=== PATIENT | female | born 1960 ===

== ENCOUNTER 2020-12-12 05:10 | Inpatient (IN) | payer OTHER ==
[2020-12-12] VITALS (43 sets, daily range): BP systolic 75–154; BP diastolic 50–90
[~2020-12-12] VITALS: Ht 157.5 cm; Wt 68.9 kg
[2020-12-12] MEDS: propofoL 1,000 MG in IV 1 EA IV SCH ×2 (07:05→12:06)
[2020-12-12] MEDS ORDERED: MIDAZOLAM INJ 2MG/2ML VIAL (J2250 PER 1MG) As Ordered ONE (07:15)
[2020-12-12] MEDS: MIDAZOLAM INJ 2MG/2ML VIAL (J2250 PER 1MG) IV PRN ×5 (07:16→09:56)
[2020-12-12] MEDS: ALBUTEROL SULFATE 2.5 MG/0.5 ML INH NEB SOLN NEB SCH ×4 (07:29→20:03)
[2020-12-12 08:12] LABS: ABG BASE EXCESS -10.9 (-2.0-2.0); ABG O2 SATURATION 98.7 % (95.0-99.0); ABG PARTIAL PRESSURE CO2 28.2 mmHg (35.0-45.0); ABG PARTIAL PRESSURE O2 140.2 mmHg (75.0-100.0); ABG STANDARD HCO3 15.8 MEQ/L (22.0-26.0); ABG TOTAL CO2 14.9 MEQ/L (23.0-31.0); ABG pH (ARTERIAL) 7.314 UNITS (7.350-7.450)
[2020-12-12] MEDS: CHLORHEXIDINE GLUCONATE 0.12 % 15ML UDC (PERIDEX ORAL RINSE) MT SCH ×3 (08:20→22:13)
[2020-12-12] MEDS: PANTOPRAZOLE 40MG VIAL (C9113 PER 1) IV SCH ×2 (08:21→09:00)
[2020-12-12] MEDS ORDERED: REFRIGERATOR IV KEYS XX PRN (08:30)
--- NOTE | 2020-12-12 08:48 | REP ---
INDICATION: RESPIRATORY FAILURE COMPARISON: None. TECHNIQUE: Portable AP view of the chest FINDINGS: Extensive diffuse bilateral subcutaneous emphysema is appreciated. Underlying areas of consolidation in the upper lobes and lower lobes (left greater than right) noted. The cardiac silhouette is normal. Endotracheal tube approximately 3.7 cm above the nicky. Nasogastric tube courses below the left hemidiaphragm. IMPRESSION: 1. Diffuse extensive subcutaneous emphysema throughout the thorax. 2. Underlying multifocal consolidations (left greater than right). <Electronically signed by Alber Boudreaux > 12/12/20 [id number]
[2020-12-12] MEDS ORDERED: LIDOCAINE 1% MDV 20ML VIAL As Ordered ONE ×2 (08:53→09:23)
[2020-12-12] MEDS ORDERED: FLUO40CA PO (09:07)
[2020-12-12] MEDS ORDERED: ROPI5TAB3 PO (09:07)
[2020-12-12] MEDS ORDERED: MONT10TA10 PO (09:07)
[2020-12-12] MEDS ORDERED: MED REC COMMENT (09:08)
[2020-12-12] MEDS ORDERED: ETOMIDATE INJ 20MG/10ML VIAL IV STA (09:23)
[2020-12-12] MEDS ORDERED: ETOMIDATE INJ 20MG/10ML VIAL As Ordered ONE (09:23)
[2020-12-12] MEDS ORDERED: SUCCINYLCHOLINE INJ 200 MG/10 ML VIAL (J0330) IV STA (09:23)
[2020-12-12] MEDS ORDERED: SUCCINYLCHOLINE INJ 200 MG/10 ML VIAL (J0330) As Ordered ONE (09:24)
[2020-12-12 09:27] LABS: ABG BASE EXCESS -15.4 (-2.0-2.0); ABG HCO3 12.8 MEQ/L (22.0-26.0); ABG O2 SATURATION 84.5 % (95.0-99.0); ABG PARTIAL PRESSURE CO2 39.2 mmHg (35.0-45.0); ABG PARTIAL PRESSURE O2 64.7 mmHg (75.0-100.0); ABG STANDARD HCO3 12.4 MEQ/L (22.0-26.0)
[2020-12-12 09:34] LABS: ABG pH (ARTERIAL) 7.133 UNITS (7.350-7.450)
[2020-12-12] MEDS: MIDAZOLAM HCL 100 MG in D5W 80 ML IV SCH (09:40)
[2020-12-12] MEDS: methylPREDNISolone 125MG 2ML VIAL IV SCH ×2 (09:41→17:56)
--- NOTE | 2020-12-12 10:11 | REP ---
INDICATION: hypoxia. COMPARISON: 12/12/2020, 8:20 a.m. TECHNIQUE: SINGLE PORTABLE AP VIEW OF THE CHEST WAS PERFORMED. FINDINGS: There are again diffuse dense infiltrates bilaterally. The heart does not appear to be significantly enlarged. A right chest tube is noted with the side port overlying the right upper lobe. A left chest tube has been placed with the side port in the left apical region. Air is seen diffusely in the chest wall soft tissues. Nasogastric tube has been removed. Endotracheal tube tip is approximately 1.5 cm above the nicky IMPRESSION: Placement of bilateral chest tubes. Nasogastric tube has been removed. Endotracheal tube tip approximately 1.5 cm above the nicky. <Electronically signed by Serafin Song > 12/12/20 1004
[2020-12-12 10:32] LABS: BASO % 0.2 % (0.0-1.0); HEMATOCRIT 33.3 % (36.0-47.0); HEMOGLOBIN 10.2 g/dl (12.0-15.5); LYMPH # 0.6 10^3/uL (1.5-5.0); LYMPH % 2.5 % (24.0-44.0); MEAN CORPUSCULAR HEMOGLOBIN 28.7 pg (27.0-33.0); MEAN CORPUSCULAR HGB CONC 30.6 g/dl (32.0-36.5); MEAN CORPUSCULAR VOLUME 93.8 fl (80.0-96.0); MONO # 0.7 10^3/uL (0.0-0.8); NEUTROPHILS # 22.3 10^3/uL (1.5-8.5); NEUTROPHILS % 91.3 % (36.0-66.0); PLATELET COUNT, AUTOMATED 441 10^3/uL (150-450); RED BLOOD COUNT 3.55 10^6/uL (4.00-5.40); WHITE BLOOD COUNT 24.5 10^3/uL (4.0-10.0)
[2020-12-12] MEDS ORDERED: VANCOMYCIN HCL 1,000 MG, VIAL MATE ADAPTER 1 EACH in NS 250 ML IV ONE ×6 (11:00)
[2020-12-12 11:01] LABS: ALBUMIN 2.2 GM/DL (3.2-5.2); ALT/SGPT 67 U/L (12-78); BILIRUBIN,DIRECT 0.6 MG/DL (0.0-0.2); BILIRUBIN,TOTAL 0.8 MG/DL (0.2-1.0); BLOOD UREA NITROGEN 20 MG/DL (7-18); CALCIUM LEVEL 8.5 MG/DL (8.8-10.2); CARBON DIOXIDE LEVEL 14 MEQ/L (21-32); CHLORIDE LEVEL 106 MEQ/L (98-107); CHOLESTEROL LEVEL 155 MG/DL (< 200); CPK CREATINE PHOSPHOKINASE 286 U/L (26-192); CREATININE FOR GFR 0.96 MG/DL (0.55-1.30); GLOMERULAR FILTRATION RATE > 60.0 (>45); GLUCOSE, FASTING 151 MG/DL (70-100); LDH LACTATE DEHYDROGENASE 553 U/L (84-246); PHOSPHORUS LEVEL 6.2 MG/DL (2.5-4.9); POTASSIUM SERUM 4.7 MEQ/L (3.5-5.1); SODIUM LEVEL 135 MEQ/L (136-145); TOTAL PROTEIN 6.5 GM/DL (6.4-8.2); TRIGLYCERIDES LEVEL 152 MG/DL (<150)
[2020-12-12 11:11] LABS: ABG BASE EXCESS -14.3 (-2.0-2.0); ABG HCO3 13.7 MEQ/L (22.0-26.0); ABG O2 SATURATION 88.6 % (95.0-99.0); ABG PARTIAL PRESSURE CO2 39.9 mmHg (35.0-45.0); ABG PARTIAL PRESSURE O2 70.2 mmHg (75.0-100.0); ABG STANDARD HCO3 13.2 MEQ/L (22.0-26.0); ABG TOTAL CO2 14.9 MEQ/L (23.0-31.0)
--- NOTE | 2020-12-12 11:11 | RO ---
OPERATIVE NOTE DATE OF OPERATION: 12/12/2020 PREOPERATIVE DIAGNOSIS: Hypoxemia and respiratory distress. POSTOPERATIVE DIAGNOSIS: Hypoxemia and respiratory distress. PROCEDURE: Endotracheal tube intubation. PROCEDURALIST: Hector Ferrara D.O. RESIDENTIAL BUILDING INSPECTOR: None. COMPLICATIONS: None observed. ANESTHESIA: Rapid sequence induction (RSI) with etomidate 20 mg, succinylcholine 100 mg, and patient already on propofol for sedation. DESCRIPTION OF PROCEDURE: The patient had arrived with a very small endotracheal tube 6.5. The patient had been struggling with prolonged expiratory phase. There is question whether or not there was bleeding or clot at the end of the tube. The patient had significant hypoxia and therefore it was deemed urgent to change out the tube. After pre-oxygenation bagging the patient, rapid sequence induction was performed with etomidate followed by succinylcholine. The patient was already in the supine sniffing position. The patient was extubated with a GlideScope size 3. I viewed the posterior pharynx. There was copious amounts of bloody mucous and I suctioned this area. I had a grade 2 view. The 8.0 endotracheal tube was passed into the trachea. The stylus was removed. Placement was confirmed with end-tidal CO2 monitoring and auscultation. There was a slight decrease of breath sounds in the left lower lobe so it was pulled back to 21 at the lip. The patient was placed on mechanical ventilation. The patient did have some minimal improvement with oxygen saturations. No observed complications. MTDD
[2020-12-12 11:22] LABS: ABG pH (ARTERIAL) 7.153 UNITS (7.350-7.450)
--- NOTE | 2020-12-12 11:49 | CCN ---
CRITICAL CARE NOTE DATE: 12/12/2020 CRITICAL CARE TIME: Two hours. This excludes all procedures. SUBJECTIVE: Patient was transferred from an outside hospital with concern for worsening hypoxic respiratory failure requiring intubation and mechanical ventilation. Patient presented with extensive subcutaneous emphysema, sats in the 80% range on 100% FiO2. The story begins approximately a week ago the patient was not feeling well, was actually called by her painter barrel to stop her immunosuppressive therapy due to liver function enzyme elevation. She was having a cough, productive mucus, and states that it took him quite a while to get her to come to the hospital. She eventually presented to [facility] yesterday, was placed on antibiotic and steroids, and progressively overnight became worse with worsening hypoxia. At one point in time, she was placed on CPAP, was not successful, then was intubated due to severe hypoxia. As mentioned, on her arrival here, she had subcutaneous emphysema and severe hypoxia. Based on the initial chest x-ray, I put a chest tube in on the right. Her endotracheal tube was small. This was switched out. By that time, her oxygen saturation improved from up to 88 to 90% on 100% FiO2. I decreased her PEEP to 5 due to the extensive subcu emphysema. Her oxygen saturation before the chest tube went down to 66% on 100% FiO2. While I was adjusting the endotracheal tube, I noticed there was significant amounts of hemoptysis. This prompted bronchoscopy. Because she still required significant amounts of oxygen and the exact air leak had not been found, a chest tube was placed on the left also by Dr. Banegas. I performed bronchoscopy due to the findings of bloody mucus. There was bloody mucus throughout the airways without evidence of fresh hemorrhage. Sample was sent off for aerobic and anaerobic fungal cultures along with PCP. Airways were cleared, and bronchoscope was removed. I adjusted mechanical ventilation to allow for a prolonged expiratory phase as the patient had significant wheezing and prolonged expiratory phase, therefore, a decreased respiratory rate. OBJECTIVE: VITAL SIGNS: Temperature 97.6, pulse 108, blood pressure 114/68 with an oxygen saturation ranging 66 to 94% on 100% FiO2 as mentioned above. GENERAL: Patient at one point appeared to be agonally breathing. This is somewhat improved, but she is still tachypneic, tachycardic, and in extreme distress. HEENT: Pupils are equal and reactive to light. Mucous membranes are moist without lesions. Tongue is midline. NECK: Supple. No tracheal deviation, mass, or lump. LYMPH: No cervical, supraclavicular, or axillary adenopathy. CARDIAC: Regular, S1 and S2, without audible murmur, rub, or gallop. No elevated JVP. No peripheral edema. PULMONARY: Decreased breath sounds throughout. Prolonged expiratory phase. Expiratory wheeze. I do not auscultate any rhonchi or rales at this point in time. ABDOMEN: There are no active bowel sounds. No discernible hepatosplenomegaly. No masses or hernia. SKIN: No cyanosis or edema. There is clubbing of the fingers. MUSCULOSKELETAL: Some RA changes. No other significant findings. Initially had some myoclonus which resolved with improved oxygen saturation. LABORATORY EVALUATION: White blood cell count 24.5, hemoglobin 10.2, platelet count 441. Chemistries and lactic acid are still pending. Initial blood gas shows a pH of 7.13, pCO2 39, PaO2 67. Another blood gas is pending. Chest x-ray showed bilateral diffuse subcu emphysema, bilateral infiltrate, severe opacification of both lungs, endotracheal tube slightly deep withdrawn back to 21. Chest tubes in good position both on the right lateral chest tube and the left anterior chest tube. Chest CT from yesterday shows diffuse alveolar process with significant infiltrates all lung diop with some peripheral sparing. No evidence of mass or lesion. No effusion. No pneumothorax on the chest CT. EKG shows a sinus tachycardia. No evidence of acute ST abnormalities. IMPRESSION/PLAN: 1. Severe acute hypoxic respiratory failure. Patient close to having Code Blue, desaturated on arrival. Requiring bilateral chest tubes and bronchoscopy. Now minimal saturations in the low 90s on 100% FiO2. I am concerned for two possibilities, the first being ARDS which is most likely in the face of infection. It is quite possible to have some alveolar hemorrhage from ARDS. The second would be an opportunistic infection after being on immunosuppressive therapies. Alveolar lavage was sent for culture, fungal and PCP. Rarely this could be a vasculitis. Solu-Medrol was initiated. It appears that there is more mucus than just angelo blood. I believe this is most likely infection. 2. Sepsis. Elevated lactate thought to be initially secondary to work of breathing. Patient has excessive work of breathing despite being on mechanical ventilation. Sedation is being administered to help control this. Will recheck lactate here. She has had only one episode of hypotension likely related to propofol administration. Will continue to monitor for signs of sepsis and septic shock. Patient remains on antibiotic therapy. Blood cultures are pending from the other hospital. She has also had blood cultures here. 3. History of COPD with smoking. Patient has prolonged expiratory phase. Nebulized therapy and steroids provided. 4. GI prophylaxis with Protonix. 5. DVT prophylaxis with TEDS and [place] for now as she is having evidence of hemorrhage that is near life threatening, and there is no evidence of pulmonary embolism on admission CT. Still waiting for chemistry labs to come back. 6. Metabolic acidosis likely secondary to lactic acidosis. Will continue to monitor for need for intervention. No evidence of renal failure at this point in time. Prognosis is extremely guarded. Discussed with who will be at bedside today. Patient's states that the patient remains full code. He would like to be updated with all status changes.
[2020-12-12] MEDS ORDERED: CISATRACURIUM 10MG/ML 20 ML VIAL IV STA (11:50)
--- NOTE | 2020-12-12 11:54 | RO ---
OPERATIVE NOTE DATE OF OPERATION: 12/12/2020 PREOPERATIVE DIAGNOSIS: Hemoptysis. POSTOPERATIVE DIAGNOSIS: Hemoptysis. PROCEDURE: Bronchoscopy. SURGEON: Hector Ferrara DO PANMAN: None. ANESTHESIA: The patient was already sedated on propofol and Versed on mechanical ventilation. DESCRIPTION OF PROCEDURE: A time-out was performed with two patient identifiers, identifying correct site, correct procedure. The direct vision bronchoscope was then introduced in the 8.0 endotracheal tube that was recently placed. It was slightly deep just over the nicky and this was pulled back 2 cm to 21 at the lip. There appeared to be more evidence of hemorrhage on the left. This area was suctioned. There were significant amounts of mucus and blood in the left lower lobe and therefore I performed a BAL of this area. All airways were suctioned. There was actually stringy mucus from the right. There was no return of fresh blood after initial washing and clearing of secretions. More consistent with irritated airways than focal alveolar hemorrhage although this could not be excluded. After all areas were suctioned and hemostasis was achieved, the bronchoscope was removed. The patient's oxygen saturation remained in the 90s for the entire procedure.
--- NOTE | 2020-12-12 11:54 | RO ---
OPERATIVE NOTE DATE OF OPERATION: 12/12/2020 PREOPERATIVE DIAGNOSIS: Probable pneumothorax hypoxia. POSTOPERATIVE DIAGNOSIS: Probable pneumothorax hypoxia. PROCEDURE: Right lateral chest tube thoracotomy. SURGEON: Hector Ferrara DO, [facility] BABYS[facility]TER: None. ANESTHESIA: 1% Lidocaine. DESCRIPTION OF PROCEDURE: It was determined that this procedure was emergent to save the patient's life as she was becoming hypoxic on 100% FiO2 on mechanical ventilation with evidence of crepitus over the chest wall. I therefore prepped and draped this patient in sterile manner with Chlorhexidine and sterile towels and full barrier sterile precautions were used. 1% Lidocaine was injected over the 5th rib. Upon entering the pleura there was a ha of air. Ramírez in the skin was made and the needle was removed. I then dissected down to the level of the pleura with forceps. With forward rounding motion I advanced the forceps into the pleural space. There was a ha of air. I placed my finger inside the cavity to ensure I was in the pleural space, there was plenty of air. I eventually palpated lung. I then placed the 24-Finnish chest tube and secured it at 16 cm. This was hooked up to suction with return with an air leak. This was sutured in place with sponge dressing and chest tube tape over the site. There were no observed complications. Chest x-ray shows appropriate position of the chest tube.
[2020-12-12] MEDS ORDERED: NS 1,000 ML IV ONE ×2 (11:55→12:30)
[2020-12-12] MEDS: PIPERACILLIN/TAZOBACTAM SOD 4.5 GM in D5W MINI-BAG PLUS 50 ML IV SCH ×2 (12:06→17:56)
[2020-12-12 12:17] LABS: INR 1.28; PARTIAL THROMBOPLASTIN TIME 28.2 SECONDS (24.2-38.5); PROTHROMBIN TIME 16.2 SECONDS (12.5-14.3)
[2020-12-12] MEDS: CISATRACURIUM 200 MG in NS 480 ML IV SCH ×2 (12:45→21:23)
--- NOTE | 2020-12-12 12:45 | RO ---
OPERATIVE NOTE DATE OF OPERATION: 12/12/2020 PREOPERATIVE DIAGNOSES: 1. Pneumothorax. 2. Massive subcutaneous emphysema. 3. Respiratory failure. POSTOPERATIVE DIAGNOSES: 1. Pneumothorax. 2. Massive subcutaneous emphysema. 3. Respiratory failure. PROCEDURE: Insertion of a left anterior-superior chest tube. SURGEON: Dr. Ritesh Banegas DESCRIPTION OF PROCEDURE: Patient had already been sedated and paralyzed by Dr. Ferrara, who had just done intubation. The 1st intercostal space above the 2nd rib was therefore infiltrated with 1% lidocaine and a tunnel created into the chest above the 2nd rib. A #20 chest tube was placed without difficulty. It was secured to the chest wall with a #2 Tevdek suture and connected to a Pleur-evac. Patient tolerated the procedure well. Her saturations improved after doctor's intubation, and a chest x-ray is pending.
[2020-12-12] MEDS ORDERED: VANCOMYCIN HCL 500 MG in D5W MINI-BAG PLUS 100 ML IV ONE (13:00)
[2020-12-12 15:35] LABS: ABG BASE EXCESS -16.3 (-2.0-2.0); ABG HCO3 15.3 MEQ/L (22.0-26.0); ABG O2 SATURATION 93.5 % (95.0-99.0); ABG PARTIAL PRESSURE O2 99.2 mmHg (75.0-100.0); ABG TOTAL CO2 17.3 MEQ/L (23.0-31.0)
[2020-12-12 15:37] LABS: ABG PARTIAL PRESSURE CO2 65.3 mmHg (35.0-45.0); ABG pH (ARTERIAL) 6.987 UNITS (7.350-7.450)
[2020-12-12 16:41] LABS: HEMATOCRIT 34.7 % (36.0-47.0); HEMOGLOBIN 10.5 g/dl (12.0-15.5); MEAN CORPUSCULAR HEMOGLOBIN 28.5 pg (27.0-33.0); MEAN CORPUSCULAR HGB CONC 30.3 g/dl (32.0-36.5); MEAN CORPUSCULAR VOLUME 94.3 fl (80.0-96.0); PLATELET COUNT, AUTOMATED 387 10^3/uL (150-450); RED BLOOD COUNT 3.68 10^6/uL (4.00-5.40); WHITE BLOOD COUNT 21.3 10^3/uL (4.0-10.0)
[2020-12-12] MEDS: LACRILUBE (AKWA TEARS) OPHTH OINT 3.5 GM OU SCH ×2 (17:56→22:13)
[2020-12-12 18:17] LABS: ABG BASE EXCESS -14.5 (-2.0-2.0); ABG HCO3 15.2 MEQ/L (22.0-26.0); ABG O2 LITER FLOW 95%; ABG O2 SATURATION 97.5 % (95.0-99.0); ABG PARTIAL PRESSURE CO2 53.1 mmHg (35.0-45.0); ABG PARTIAL PRESSURE O2 127.1 mmHg (75.0-100.0); ABG PATIENT RESP RATE 20 /MIN; ABG PEEP 5; ABG STANDARD HCO3 13.2 MEQ/L (22.0-26.0); ABG TIDAL VOLUME 420 cc; ABG TOTAL CO2 16.9 MEQ/L (23.0-31.0)
[2020-12-12 18:20] LABS: ABG pH (ARTERIAL) 7.076 UNITS (7.350-7.450)
[2020-12-12] MEDS ORDERED: NS 500 ML IV ONE (18:35)
--- NOTE | 2020-12-12 19:59 | REP ---
INDICATION: please read and upload to our system if possible. COMPARISON: None. TECHNIQUE: Single frontal portable view chest, 1:51 p.m., [facility]. FINDINGS: Diffuse bilateral infiltrates are present. Heart is upper limits of normal in size. There is mild calcification of the thoracic aorta. IMPRESSION: Diffuse bilateral infiltrates. <Electronically signed by Serafin Song > 12/12/201955
--- NOTE | 2020-12-12 19:59 | REP ---
INDICATION: please read and upload to our system if possible. COMPARISON: None. TECHNIQUE: Single frontal view chest. 4:15 a.m. from an outside institution. [facility]. FINDINGS: Diffuse dense infiltrates are seen throughout both lungs. Cardiac silhouette is upper limits of normal. Endotracheal tube is seen with the tip approximately 5.8 cm above the nicky. Nasogastric tube is seen with side port in the stomach. Significant air is seen diffusely in the soft tissues of the chest wall bilaterally. IMPRESSION: Diffuse dense infiltrates throughout both lungs. Endotracheal tube tip 5.8 cm above the nicky. Significant chest wall emphysema bilaterally. <Electronically signed by Serafin Song > 12/12/201955
--- NOTE | 2020-12-12 20:00 | REP ---
INDICATION: please read and upload to our system if possible. COMPARISON: None. TECHNIQUE: CT chest with IV contrast performed at an outside institution 12/11/2020 and is submitted for interpretation. FINDINGS: The study is not optimized to evaluate pulmonary arteries, but no definite pulmonary embolism is seen. There is no thoracic aortic aneurysm or dissection. Diffuse patchy ground-glass infiltrates are seen bilaterally. Multiple nonenlarged paratracheal lymph nodes are present. There is a subcarinal lymph node which has a shorter axis dimension of 1.4 cm, mildly enlarged. Mildly enlarged right hilar lymph node has a short axis dimension of 1.7 cm. There is a small hiatal hernia. The heart is not enlarged. There is no pericardial effusion. There is no pleural effusion. There are diffuse mild degenerative changes of the spine without compression deformity. IMPRESSION: Diffuse bilateral patchy ground-glass infiltrates. Mild right hilar and subcarinal adenopathy. No pleural effusion. No evidence of pulmonary embolism or aortic dissection, although the study is not optimized to evaluate the pulmonary arteries. <Electronically signed by Serafin Song > 12/12/201955
[2020-12-12 22:47] LABS: HEMATOCRIT 33.9 % (36.0-47.0); HEMOGLOBIN 10.2 g/dl (12.0-15.5); MEAN CORPUSCULAR HEMOGLOBIN 28.8 pg (27.0-33.0); MEAN CORPUSCULAR HGB CONC 30.1 g/dl (32.0-36.5); MEAN CORPUSCULAR VOLUME 95.8 fl (80.0-96.0); PLATELET COUNT, AUTOMATED 345 10^3/uL (150-450); RED BLOOD COUNT 3.54 10^6/uL (4.00-5.40); WHITE BLOOD COUNT 20.4 10^3/uL (4.0-10.0)
[2020-12-12] MEDS ORDERED: VANCOMYCIN HCL 750 MG, VIAL MATE ADAPTER 1 EACH in NS 250 ML IV SCH (23:00)
[2020-12-13] VITALS (81 sets, daily range): BP systolic 80–115; BP diastolic 48–63
[2020-12-13] MEDS: ALBUTEROL SULFATE 2.5 MG/0.5 ML INH NEB SOLN NEB SCH ×6 (00:01→19:24)
[2020-12-13] MEDS: methylPREDNISolone 125MG 2ML VIAL IV SCH ×3 (00:08→16:18)
[2020-12-13] MEDS: PIPERACILLIN/TAZOBACTAM SOD 4.5 GM in D5W MINI-BAG PLUS 50 ML IV SCH ×4 (00:08→17:33)
--- NOTE | 2020-12-13 00:39 | ECGEPIP ---
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
[2020-12-13] MEDS: propofoL 1,000 MG in IV 1 EA IV SCH (00:42)
[2020-12-13] MEDS: CISATRACURIUM 200 MG in NS 480 ML IV SCH ×5 (01:57→21:03)
[2020-12-13] MEDS ORDERED: NS 1,000 ML IV ONE ×2 (05:30→08:00)
[2020-12-13 05:56] LABS: ABG HCO3 16.5 MEQ/L (22.0-26.0); ABG O2 SATURATION 92.3 % (95.0-99.0); ABG PARTIAL PRESSURE O2 76.7 mmHg (75.0-100.0); ABG STANDARD HCO3 13.5 MEQ/L (22.0-26.0); ABG TOTAL CO2 18.4 MEQ/L (23.0-31.0)
[2020-12-13 05:59] LABS: ABG pH (ARTERIAL) 7.047 UNITS (7.350-7.450)
[2020-12-13 06:01] LABS: ABG PARTIAL PRESSURE CO2 61.4 mmHg (35.0-45.0)
[2020-12-13 06:05] LABS: HEMATOCRIT 33.3 % (36.0-47.0); HEMOGLOBIN 9.9 g/dl (12.0-15.5); MEAN CORPUSCULAR HEMOGLOBIN 28.8 pg (27.0-33.0); MEAN CORPUSCULAR HGB CONC 29.7 g/dl (32.0-36.5); MEAN CORPUSCULAR VOLUME 96.8 fl (80.0-96.0); PLATELET COUNT, AUTOMATED 348 10^3/uL (150-450); RED BLOOD COUNT 3.44 10^6/uL (4.00-5.40); WHITE BLOOD COUNT 21.2 10^3/uL (4.0-10.0)
[2020-12-13 07:04] LABS: ALBUMIN 1.8 GM/DL (3.2-5.2); BILIRUBIN,TOTAL 0.9 MG/DL (0.2-1.0); CALCIUM LEVEL 7.5 MG/DL (8.8-10.2); CREATININE FOR GFR 1.96 MG/DL (0.55-1.30); GLOMERULAR FILTRATION RATE 27.6 (>45); PHOSPHORUS LEVEL 7.4 MG/DL (2.5-4.9); POTASSIUM SERUM 4.9 MEQ/L (3.5-5.1); TOTAL PROTEIN 5.8 GM/DL (6.4-8.2)
[2020-12-13] MEDS: MIDAZOLAM HCL 100 MG in D5W 80 ML IV SCH (07:24)
--- NOTE | 2020-12-13 07:57 | REP ---
INDICATION: RESPIRATORY FAILURE COMPARISON: 12/12/2020 TECHNIQUE: Portable AP view of the chest FINDINGS: Endotracheal tube approximately 3 cm above the nicky. Nasogastric tube courses below left hemidiaphragm. Bilateral apical chest tubes in relatively stable position. Mediastinum and cardiac silhouette are grossly normal/stable. Diffuse bilateral subcutaneous emphysema again appreciated but improved from prior examination. Underlying bilateral consolidations and airspace disease (left greater than right) again noted, but appears improved. No obvious effusion. No obvious pneumothorax. IMPRESSION: 1. Decreased subcutaneous emphysema. 2. Improved aeration with decreased airspace disease/consolidations suggested. <Electronically signed by Alber Boudreaux > 12/13/20 3105
[2020-12-13] MEDS: PANTOPRAZOLE 40MG VIAL (C9113 PER 1) IV SCH (08:41)
[2020-12-13] MEDS: LACRILUBE (AKWA TEARS) OPHTH OINT 3.5 GM OU SCH ×3 (08:42→22:37)
[2020-12-13] MEDS: CHLORHEXIDINE GLUCONATE 0.12 % 15ML UDC (PERIDEX ORAL RINSE) MT SCH ×2 (08:42→22:37)
[2020-12-13] MEDS: HEPARIN SOD (PORCINE) 5000UNITS/ML 1ML VIAL/SYRINGE SQ SCH ×3 (08:42→22:37)
[2020-12-13] MEDS ORDERED: NOREPINEPHRINE BITARTRATE 8 MG in D5W 500 ML IV SCH (10:00)
--- NOTE | 2020-12-13 10:15 | REP ---
INDICATION: s/p central line placement. COMPARISON: 12/13/2020, 6:48 a.m. TECHNIQUE: SINGLE PORTABLE AP VIEW OF THE CHEST WAS PERFORMED. FINDINGS: Bilateral chest tubes, endotracheal tube and nasogastric tube appear unchanged. There is placement of a right central venous catheter. The tip is in the superior vena cava. There is no pneumothorax. Mild bilateral chest wall emphysema is unchanged. Diffuse bilateral infiltrates are unchanged. Heart and mediastinum are unchanged. IMPRESSION: Placement of right central venous catheter, tip in the superior vena cava. No pneumothorax. Otherwise stable. <Electronically signed by Serafin Song > 12/13/20 1012
--- NOTE | 2020-12-13 10:33 | RO ---
OPERATIVE NOTE DATE OF OPERATION: 12/13/2020 PREOPERATIVE DIAGNOSIS: Hypotension. POSTOPERATIVE DIAGNOSIS: Hypotension. PROCEDURE: Right internal triple lumen jugular venous catheter. PROCEDURALIST: Hector Ferrara D.O. INFORMATICS NURSE SPECIALIST: None. ANESTHESIA: 1% Lidocaine. Patient on sedation while on mechanical ventilation. DESCRIPTION OF PROCEDURE: The right IJ was prepped and draped in a sterile manner. Chlorhexidine with full barrier precaution. Right IJ was identified under ultrasound. Time-out was performed with two patient identifiers identifying correct site and correct procedure. Roslin syringe was then introduced into the right IJ. On the first pass, there was return of venous blood flow and wire was fed through the needle. The needle was removed and a elyse in the skin was made. The triple lumen catheter was advanced to 15 cm and wire was removed. All three ports returned venous blood flow. Estimated CVP was elevated. All three ports flushed easily. This was sutured in at 15 cm. Postprocedure chest x-ray shows the tip of the catheter in the SVC. No observed complications.
--- NOTE | 2020-12-13 11:05 | CCN ---
CRITICAL CARE NOTE DATE: 12/13/2020 CRITICAL CARE TIME: 1 hour and 57 minutes; this excludes all procedures. SUBJECTIVE: Overnight the patient's urine output had dropped while IV boluses were given. The patient became hypotensive this morning with a MAP just under 65. Placed central line, central venous pressure appeared elevated likely from pulmonary hypertension given her severe hypoxic state and ARDS. I ordered central venous oxygen saturation and central venous pressure monitoring. I reordered lactate. The patient remains extremely hypoxic and is currently on paralytics because of the severity of her hypoxia with dyssynchrony of the vent. Having some permissive hypercapnea; however, given the fact that her pH is so low, I have increased her tidal volumes along with her respiratory rate and will recheck an arterial blood gas at noon. She remains critically ill, difficult to oxygenate and ventilate now with renal impairment likely from shock. Placed on Levophed this morning. was updated by phone as outline below. OBJECTIVE: VITAL SIGNS: Temperature 98.4, pulse 117, respiratory rate 24, blood pressure 88/54 with a MAP of 65. Oxygen saturation is 93% on 0.90 FiO2, PEEP of 5. Bilateral chest tubes have no air leak. Minimal serous drainage. Right IJ in place without surrounding erythema or exudate. GENERAL: Sedated on paralytics, but not completely paralyzed. Making no spontaneous efforts on mechanical ventilation, however. HEENT: Sclerae clear and anicteric. Pupils are equal and reactive to light. Mucous membranes are moist without lesions. Tongue is midline. NECK: Supple. No tracheal deviation. JVP is elevated. Central venous pressure measured at 19. LYMPHS: No cervical, supraclavicular, axillary adenopathy. CARDIAC: Tachycardic S1, S2 without audible murmur, rub, or gallops. PMI does not appear to be displaced laterally. Chest wall with decreased crepitus. Chest tube sites are unchanged. No significant drainage from the site. The right lateral tube has no air leak. The left anterior chest tube has no air leak. Minimal amounts of serosanguineous drainage. PULMONARY: Significantly improved breath sounds bilaterally. There is less prolongation of the expiratory phase and less bronchospasm. No significant rhonchi. ABDOMEN: Soft, nontender, and nondistended with no discernable hepatosplenomegaly. Hypoactive bowel sounds are present. EXTREMITIES: No cyanosis or edema, but there is continued clubbing. MUSCULOSKELETAL: No muscle weakness or joint effusion. NEUROLOGIC: No unilateral weakness. No tremor. No evidence of seizure activity. LABORATORY DATA: Shows a sodium of 139, potassium 4.9, chloride of 110, bicarb of 17, BUN 37, creatinine 1.96, phosphorus 7.4. AST and ALT slightly elevated at 240 and 104. LDH of 630. Albumin is low at 1.8. CBC shows a white blood cell count of 21.2, hemoglobin 9.9, platelet count 348,000. Arterial blood gas this morning shows a pH of 7.05, pCO2 of 61, PaO2 of 77. Ventilator adjustments have been made since this time. IMAGING DATA: Chest x-ray from 12/13/2020, shows the central line is in place. Bilateral chest tube in place. Less subcutaneous air. Improved bilateral lung diop, but continues with infiltrates in all lung diop. No evidence of effusion. IMPRESSION: 1. Respiratory failure secondary to acute respiratory distress syndrome (ARDS), probable sepsis, possible septic shock. Rechecking lactate, added Levophed, and patient given additional fluid. I believe at this point in time as the central venous pressure (CVP) is quite elevated, we will not provide any additional boluses and obtain echocardiogram. A CvO2 is pending. Likely pulmonary hypertension from the severity of hypoxia. 2. Renal impairment new with low urine output. Will continue to monitor with pressor therapy. Hopefully with improvement in blood pressure this will improve. No indication for dialysis at this point in time. 3. Anemia. No indication for blood transfusion at this point in time. No evidence of acute blood loss. 4. Protein malnourishment. Started trickle tube feeds today. If the patient tolerates, will increase. 5. Neuroprophylaxis. The patient is at risk for critical illness neuropathy and weakness given the fact that she is on paralytics and steroids. Will attempt to wean paralytics as soon as possible. 6. Likely pneumonia. Vancomycin and Zosyn continued. The bronchoalveolar lavage (BAL) that was obtained yesterday during bronchoscopy was accidentally dumped by specimen handling. Sputum culture from suction endotracheal tube did not show any significant organisms. The patient had already been on antibiotics for over 24 hours at that time. Overall, the patient's prognosis is extremely guarded with minimal improvement since yesterday. The patient remains severely critically ill with high risk of . Patient's updated today.
[2020-12-13 11:49] LABS: ABG BASE EXCESS -15.9 (-2.0-2.0); ABG HCO3 13.3 MEQ/L (22.0-26.0); ABG O2 SATURATION 93.8 % (95.0-99.0); ABG PARTIAL PRESSURE CO2 45.8 mmHg (35.0-45.0); ABG PARTIAL PRESSURE O2 87.2 mmHg (75.0-100.0); ABG STANDARD HCO3 12.2 MEQ/L (22.0-26.0); ABG TOTAL CO2 14.7 MEQ/L (23.0-31.0)
[2020-12-13 11:51] LABS: ABG pH (ARTERIAL) 7.082 UNITS (7.350-7.450)
[2020-12-13] MEDS: NOREPINEPHRINE BITARTRATE 8 MG in D5W 492 ML IV SCH (13:04)
[2020-12-13] MEDS ORDERED: VANCOMYCIN HCL 750 MG, VIAL MATE ADAPTER 1 EACH in NS 250 ML IV SCH (18:00)
[2020-12-13] MEDS ORDERED: VANCOMYCIN HCL 500 MG in D5W MINI-BAG PLUS 100 ML IV SCH (19:00)
--- NOTE | 2020-12-13 20:30 | REPVR ---
PROCEDURE INFORMATION: Exam: XR Chest Exam date and time: 12/13/2020 8:19 PM Age: 60 years old Clinical indication: Other: Post central line; Additional info: Post central line placement TECHNIQUE: Imaging protocol: XR of the chest. Views: 1 view. COMPARISON: [place] PORTABLE CHEST X-RAY 12/13/2020 10:03 AM FINDINGS: Tubes, catheters and devices: Endotracheal tube demonstrated with the tip of the tube located 4.9 cm. above the nicky. Right internal jugular catheter tip in the superior vena cava. Left internal jugular catheter tip in the innominate vein. Bilateral chest tubes demonstrated in both lung apices. NG tube courses through the mediastinum into the left upper quadrant. Tip of the NG tube not visualized. Lungs: Bilateral pulmonary infiltrates. Pleural spaces: Blunting of the left costophrenic angle consistent with a left pleural effusion. No pneumothorax. Heart/Mediastinum: Unremarkable. No cardiomegaly. Bones/joints: Unremarkable. Soft tissues: Subcutaneous emphysema demonstrated in the left breast and chest wall likely postprocedural. IMPRESSION: 1. Bilateral pulmonary infiltrates. 2. Blunting of the left costophrenic angle consistent with a left pleural effusion. Electronically signed by: Emery Ho On 12/13/2020 20:31:17 PM
[2020-12-13 20:32] LABS: CALCIUM LEVEL 7.5 MG/DL (8.8-10.2); CREATININE FOR GFR 3.09 MG/DL (0.55-1.30); GLOMERULAR FILTRATION RATE 16.3 (>45); POTASSIUM SERUM 4.5 MEQ/L (3.5-5.1)
[2020-12-13] MEDS ORDERED: SODIUM CHLORIDE 0.9% INJ 10 ML SYR IV PRN (20:40)
[2020-12-14] VITALS (84 sets, daily range): BP systolic 70–166; BP diastolic 45–103
[2020-12-14] MEDS: ALBUTEROL SULFATE 2.5 MG/0.5 ML INH NEB SOLN NEB SCH ×6 (00:12→19:23)
[2020-12-14] MEDS: NOREPINEPHRINE BITARTRATE 8 MG in D5W 492 ML IV SCH ×3 (00:20→19:29)
[2020-12-14] MEDS: PIPERACILLIN/TAZOBACTAM SOD 4.5 GM in D5W MINI-BAG PLUS 50 ML IV SCH ×4 (00:23→21:09)
[2020-12-14] MEDS: methylPREDNISolone 125MG 2ML VIAL IV SCH ×3 (00:23→16:17)
[2020-12-14] MEDS: CISATRACURIUM 200 MG in NS 480 ML IV SCH ×2 (01:48→08:11)
[2020-12-14 04:04] LABS: HEMATOCRIT 28.5 % (36.0-47.0); HEMOGLOBIN 8.5 g/dl (12.0-15.5); MEAN CORPUSCULAR HEMOGLOBIN 28.3 pg (27.0-33.0); MEAN CORPUSCULAR HGB CONC 29.8 g/dl (32.0-36.5); PLATELET COUNT, AUTOMATED 227 10^3/uL (150-450); WHITE BLOOD COUNT 14.6 10^3/uL (4.0-10.0)
[2020-12-14 04:50] LABS: ALBUMIN 1.5 GM/DL (3.2-5.2); CALCIUM LEVEL 7.6 MG/DL (8.8-10.2); CREATININE FOR GFR 2.47 MG/DL (0.55-1.30); GLOMERULAR FILTRATION RATE 21.1 (>45); PHOSPHORUS LEVEL 4.6 MG/DL (2.5-4.9); POTASSIUM SERUM 3.5 MEQ/L (3.5-5.1)
[2020-12-14 04:50] LABS: MAGNESIUM LEVEL 2.2 MG/DL (1.8-2.4); PHOSPHORUS LEVEL 4.6 MG/DL (2.5-4.9)
[2020-12-14] MEDS: CALCIUM GLUCONATE 1,000 MG, VIAL MATE ADAPTER 1 EACH in NS 100 ML IV SCH ×2 (04:50→05:49)
[2020-12-14] MEDS: KCL 20MEQ IN 100ML SWI (KRUN) 20 MEQ in IV 1 EA IV SCH ×8 (05:29→17:43)
--- NOTE | 2020-12-14 05:37 | RO ---
OPERATIVE NOTE DATE OF OPERATION: 12/13/2020 PREOPERATIVE DIAGNOSIS: Renal failure. POSTOPERATIVE DIAGNOSIS: Renal failure. PROCEDURE: Right internal jugular dual lumen dialysis catheter (14 Greek x 15 cm). SURGEON: Hector Ferrara DO [facility] POLICE STENOGRAPHER: none ANESTHESIA: The patient is already sedated on mechanical ventilation. DESCRIPTION OF PROCEDURE: After time-out was performed, a two patient identifier was done; identifying correct site, correct procedure, and the entire field was sterilized. Multiple chlorhexidine washes over the current triple lumen and the right IJ were performed all the way to the hub of the catheters. This was fed through a sterile cover. Sutures were then removed. The wire was fed through the distal line. The catheter was removed. Dilators were applied times 2 and the 15 cm right IJ catheter was then advanced into the IJ and the wire was removed. Both ports returned venous blood flow. Both were flushed initially with saline and then with 1.2 ml of heparin for the venous port and 1.0 ml of heparin for the arterial port. Sterile caps were applied. Catheter was sutured into place. Post procedure chest x-ray shows adequate placement with the tip of the catheter in the SVC. There were no observed complications. MTDD
[2020-12-14 06:13] LABS: ABG BASE EXCESS -9.8 (-2.0-2.0); ABG HCO3 17.6 MEQ/L (22.0-26.0); ABG O2 SATURATION 99.1 % (95.0-99.0); ABG PARTIAL PRESSURE CO2 44.9 mmHg (35.0-45.0); ABG PARTIAL PRESSURE O2 151.4 mmHg (75.0-100.0); ABG STANDARD HCO3 16.6 MEQ/L (22.0-26.0); ABG TOTAL CO2 18.9 MEQ/L (23.0-31.0)
[2020-12-14] MEDS: HEPARIN SOD (PORCINE) 5000UNITS/ML 1ML VIAL/SYRINGE SQ SCH ×3 (06:32→21:09)
--- NOTE | 2020-12-14 06:44 | CR ---
CONSULTATION DATE: 12/13/2020 REQUESTING PHYSICIAN: Hector Ferrara DO [facility] CONSULTING PHYSICIAN: Shona Whalen DO REASON FOR CONSULTATION: Oligo-anuric renal failure. HISTORY OF PRESENT ILLNESS: History is obtained from discussion with the patient's , chart review and discussion with the obstetric anaesthetist. The patient is unable to provide any history secondary to clinical condition. Yolanda Ritchie is a 60-year-old female with a past medical history of rheumatoid arthritis and lung disease (exact lung issue unknown to me). Her states she was in her usual state of health until about 2 1/2 weeks ago when she had routine blood work done by her life sciences director while she is on Rinvoq tablets and apparently her liver function test results were abnormal and she was directed to discontinue her medication. Shortly thereafter the patient developed a cold and cough-like symptoms and she did not seek medical attention, rather she took some old amoxicillin tablets that she had at home. Her condition worsened over the next several days with increasing shortness of breath, cough, fatigue, tiredness and then the onset of the delusions. The patient subsequently was brought to the emergency room where she was found to be in extremist and in hypoxic respiratory failure and she was intubated and placed on mechanical ventilation (this was at [facility]) and she subsequently transferred to [facility] on December 12 and she also required a bilateral chest tube. She had very high FiO2 requirements and was additionally hypotensive and was started on pressor support and she was also put on broad-spectrum antibiotics along with IV steroids. Apparently, the patient also had a contrast CAT scan at an outside hospital. Since she has been at [facility], she has had very poor urine output and indeed over the past 12 hours has made only 70 ml of urine. Laboratory studies revealed worsening metabolic acidosis with pH 7.08 on the latest lab and laboratory studies also revealed lactic acidosis that did improve after the patient was started on paralytics. A nephrology evaluation was requested for help in the management of her anuric renal failure. PAST MEDICAL HISTORY: Rheumatoid arthritis and lung disease (probable chronic obstructive pulmonary disease (COPD)). Other past medical history is unknown to me at present. PAST SURGICAL HISTORY: Bilateral chest tubes, bilateral central lines. Other past surgical history is unknown to me at present. ALLERGIES: ADALIMUMAB, DIVALPROEX SODIUM. FAMILY HISTORY: Unknown. REVIEW OF SYSTEMS: Unable to obtain secondary to clinical condition. SOCIAL HISTORY: , resides with . History of smoking, PHYSICAL EXAMINATION: VITAL SIGNS: Temperature 97.9, pulse 115, respiratory rate 24, blood pressure 86/48, saturating 94% on 90% FiO2. Total input since admission is 6.5 liters and total output is 250 from the gastric tube, 70 ml from urine output and around 200 ml from the chest tube. Weight in the bed scale is 68.8 kg. General: The patient is seen in the intensive care unit, intubated, paralyzed and sedated. There are bilateral central lines in the neck. The sclerae are clear and anicteric. Pupils are reactive to light. The tongue is moist. Endotracheal tube and oral gastric tube are in place. Jugular veins are elevated. Central venous pressure was measured at 19. Heart sounds are tachycardiac. I do not appreciate any murmur. There is no peripheral edema, nor dependent edema. Pulmonary: There are coarse breath sounds bilaterally, which are symmetric. No rales appreciated. Abdomen: Soft and nontender. There are minimal bowel sounds. Genitourinary: Shows Baker catheter with no urine. Extremities: Negative for clubbing, cyanosis or edema. There are compression devices on her legs. Neurologic: She is sedated and paralyzed. LABORATORY DATA: Today's laboratory studies reveal sodium 139, potassium 4.5, bicarbonate 15, BUN 49, creatinine 3.0, increased from creatinine 0.9 on admission yesterday. Lactic acid 1.4, hemoglobin 9.9, platelets 348. Blood cultures for two sets, no growth for 24 hours. Latest blood gas shows pH 7.08, pCO2 45, pO2 87. IMAGING DATA: Chest x-ray done this evening shows bilateral pulmonary infiltrates and left pleural effusion. INPATIENT MEDICATIONS: She is on versed drip, Levophed presently at 6 mg per minute. She has received 2 liters normal saline bolus at least, she is cisatracurium drip, vancomycin 700 mg IV daily, Zosyn 4.5 gm IV q 6 hours, albuterol nebs, heparin 5000 units subcutaneous q 8 hours, Solu-Medrol 125 mg IV q 8 hours, versed as needed, Protonix 40 mg IV daily. PROBLEMS: 1. Oligo-anuric acute renal failure in the setting of septic shock/ARDS and recent contrast exposure. The patient requires urgent initiation of continuous renal replacement therapy given severe metabolic acidosis (pH7.0, PCO2 45) and Fio2 of requirement of 90%. She has received generous IV fluids, but with no improvement in mean arterial pressures, nor in urine output. I would try to remove some of fluid with continuous renal replacement therapy (CRRT) now as tolerated by her hemodynamics and we will titrate fluid removal for her pressor requirement. She is significantly acidotic and orders are written for effluent dose of 20 to 25 ml per kg per hour of continuous renal replacement therapy (CRRT) with q 8 hourly labs. I did speak with her and updated him regarding the patient's condition and obtained consent for dialysis. 2. Metabolic acidosis in the setting of renal failure and septic shock with bicarbonate of 15 on the latest labs and pH of 7.0. It will be managed with continuos renal replacement therapy (CRRT). Her respiratory acidosis is much improved on review of prior arterial blood gases and vent management and of course as per critical care team. 3. Septic shock. The patient is on broad-spectrum empiric antibiotics, vancomycin and Zosyn. Blood cultures show no growth for 24 hours times two sets. Sputum cultures are pending. There is significant leukocytosis, but the patient is also on IV steroids for their antiinflammatory effect. I would also get respiratory panel and COVID 19 test (if these are not already done at [facility]). She continues on Levophed pressor support to maintain MAP above 65 and she may require increasing amounts of pressors with continuos renal replacement therapy (CRRT) and fluid removal. 4. Ventilator dependent respiratory failure, acute respiratory distress syndrome (ARDS). The patient has significant FiO2 requirements of 90%. She was significant immunosuppressants for her rheumatoid arthritis and likely has a pneumonia or opportunistic infection. Antimicrobials are as per critical care team and fungal cultures are pending as well. With her significant oxygen requirements, I will try to keep her on the dry side and remove fluids with dialysis. 38 minutes critical care time spent. Thank you for involving me in the care of Ms. Ritchie, I will be happy to follow her along with you. LEFTY
[2020-12-14] MEDS: MIDAZOLAM HCL 100 MG in D5W 80 ML IV SCH ×3 (07:36→19:17)
--- NOTE | 2020-12-14 08:11 | REP ---
INDICATION: post HD cath placement. 9:07 p.m. radiograph. COMPARISON: Comparison portable chest x-ray 12/13/2020 8:13 p.m. film. TECHNIQUE: Portable upright AP chest radiograph. Time stamp 9:07 p.m.. FINDINGS: Endotracheal tube remains in good position just above the transverse aorta. NG tube enters the left upper quadrant as before. Bilateral apical chest tubes remain in place. There is no evidence of pneumothorax. There is some extra thoracic soft tissue air in the left breast unchanged. There are bilateral internal jugular central venous lines. The right is larger and it terminates in the expected location of superior vena cava. The left internal jugular line terminates in the midline consistent with position in the brachiocephalic vein. Lines and tubes are unchanged. There are extensive alveolar infiltrates throughout the lung diop most prominently affecting the upper lobes unchanged from the earlier film. No definite pleural angle blunting is seen on the current radiograph. No change in the lung parenchyma. Heart size remains normal. IMPRESSION: Multiple lines and catheters unchanged in position. Extensive alveolar infiltrates bilaterally also unchanged. No visible pneumothorax.. <Electronically signed by Terence Tran > 12/14/20 [id number]
--- NOTE | 2020-12-14 08:45 | RO ---
OPERATIVE NOTE DATE OF OPERATION: 12/13/2020 PREOPERATIVE DIAGNOSIS: Shock. POSTOPERATIVE DIAGNOSIS: Shock PROCEDURE: Left internal jugular vein triple lumen catheter. SURGEON: DO LEANNE Mendoza MANAGER ENERGY: None ANESTHESIA: The patient was already sedated on mechanical ventilation. DESCRIPTION OF PROCEDURE: After a time-out was performed with two patient identifiers, identifying correct site, correct procedure, the left IJ was prepped and draped in a sterile manner. Chlorhexidine was used over the site along with full sterile barrier precautions. The left IJ was identified under ultrasound. The RaVendor[employer]son syringe was easily guided into the left IJ on the first pass with return of venous blood flow, wire was fed through the needle and the needle was removed. A elyse in the skin was made and the triple lumen Arrow catheter was placed via modified Seldinger technique. The wire was removed. All three ports returned venous blood flow almost immediately due to high central venous pressures. All ports flushed easily. This was sutured in at 15 cm. Sterile impregnated dressing was applied over the site. Chest x-ray showed good position with the tip of the catheter in SVC. MTDD
--- NOTE | 2020-12-14 08:52 | REP ---
INDICATION: RESPIRATORY FAILURE. 7:02 a.m. radiographs. COMPARISON: Comparison is made with portable chest x-ray 12/13/2020 9:07 p.m.. TECHNIQUE: Two semi-erect AP portable radiograph of the chest are provided time stamp 7:02 a.m... FINDINGS: Bilateral chest tubes are seen in place in the apices unchanged. No visible pneumothorax. Endotracheal tube is in good position at the level of the top of the transverse aorta. Bilateral IJ central venous lines are noted in place unchanged. And NG tube enters the left upper quadrant. Diffuse alveolar infiltrate pattern is seen most prominent in the upper lobes. Some increased markings are seen in the bases as well. This is unchanged.. IMPRESSION: Extensive alveolar infiltrate pattern persists. Bilateral internal jugular central venous lines, endotracheal, nasogastric tubes in place unchanged. Bilateral apical chest tubes. No evidence of pneumothorax per. <Electronically signed by Terence Tran > 12/14/20 [id number]
[2020-12-14] MEDS ORDERED: CLOPIDOGREL 300 MG TAB (PLAVIX) PO ONE (09:00)
[2020-12-14] MEDS ORDERED: ASPIRIN ENTERIC 325 MG TAB PO SCH (09:00)
[2020-12-14] MEDS: PANTOPRAZOLE 40MG VIAL (C9113 PER 1) IV SCH (09:21)
[2020-12-14] MEDS: LACRILUBE (AKWA TEARS) OPHTH OINT 3.5 GM OU SCH ×3 (09:21→20:30)
[2020-12-14] MEDS: CHLORHEXIDINE GLUCONATE 0.12 % 15ML UDC (PERIDEX ORAL RINSE) MT SCH ×2 (09:21→20:30)
--- NOTE | 2020-12-14 10:06 | CCN ---
CRITICAL CARE NOTE DATE: 12/14/2020 CRITICAL CARE TIME: 1 hour, 30 minutes, this excludes all procedures. SUBJECTIVE: This morning the patient had ST elevations on telemetry. EKG was obtained showing diffuse ST abnormalities in lead I to lateral leads and changes to the anterior leads with some depression. This is a definite change from the EKG that I obtained two days ago. Patient's blood pressure has improved, acidemia has improved with CRRT, oxygenation has improved, now 97% on 0.70. Patient is now off paralytics. OBJECTIVE: VITAL SIGNS: Temperature is 96.7, pulse is 80, respiratory rate is 24, blood pressure is 158/90 with a MAP of 112, oxygen saturation is 97% on 0.70 FIO2. Patient remains on mechanical ventilation assist control. GENERAL: Patient is sedated on mechanical ventilation at this point in time, not triggering the vent. HEENT: Sclera clear, nonicteric. Pupils are equal and reactive to light. Mucous membranes are moist. Tongue is midline. NECK: Supple. There is elevated JVP. Central venous pressure measured this morning at 14. CARDIAC: Regular S1 and S2. I do not auscultate a murmur, rub or gallop. PMI does not appear to be displaced laterally. PULMONARY: Much more clear to auscultation. Less expiratory wheeze. No rhonchi or rales. ABDOMEN: Soft, nontender and nondistended. Hypoactive bowel sounds. EXTREMITIES: No cyanosis or edema but does have clubbing. MUSCULOSKELETAL: Normal for stated age. No evidence of joint effusion, fracture or hematoma. LABORATORY DATA: Laboratory evaluation shows a sodium of 139, potassium 3.5, chloride 110, bicarbonate of 18, BUN 40, creatinine of 2.47. Hemoglobin is low at 8.5, down from 9.9. White blood cell count is down to 14.6 from 21.2, platelet count down to 227,000. This could be dilutional as all cell lines are down. Arterial blood gas shows a pH of 7.21 which improved from 7.08 yesterday, pCO2 of 45, PaO2 of 151. EKG as described above. Chest x-ray: Bilateral chest tubes in place. No evidence of pneumothorax bilaterally. Some improvement in the infiltrate of the lungs. Still blunting of the left costophrenic angle, sub q. air is significantly improved, the left IJ is in place. Right IJ dialysis catheter in place. Endotracheal tube is approximately 4 cm above the nicky. IMPRESSION: 1. Severe hypoxic respiratory failure, able to stop paralytics this morning. Weaning down on FIO2. Still with severe hypoxic respiratory failure, not able to consider weaning at this point in time. 2. ST abnormalities on EKG, differential includes ST elevation IA versus pericarditis. Given the fact that the patient has been on steroids I believe it is more likely acute myocarcial ischemia. The patient recently had significant hypoxia in the face of metabolic acidosis and slight hypotension. I believe this is most likely secondary to coronary artery disease in the face of that stress. She has been loaded with Plavix and aspirin. I have consulted Dr. Witt. An echocardiogram was performed yesterday and I do not have the results of that yet. If heart rate continues to climb and blood pressure remains adequate will consider adding metoprolol. 3. Renal failure, on MICROSYSTEMS ENGINEER, creatinine increased today. Patient was anuric yesterday. I appreciate Nephrology management of her electrolyte balance. 4. Protein malnourishment with hypoalbuminemia. Will continue attempts towards tube feeds. 5. GI prophylaxis with Protonix. 6. Anemia, possibly slightly dilutional. Will check a CBC at noon to ensure that she does not require blood transfusion especially in the face of a probable myocardial infarction. 7. Pneumonia leading to sepsis. Will likely be the initial process which has led to her serious critical illness. Remains on Zosyn and Vancomycin. Culture data unremarkable. White count has decreased some. It does appear that she is out of shock, blood pressure is maintained without vasopressors. 9. DVT prophylaxis. Patient is on TEDs, Ronnie's, and Heparin. 10.Neuro-prophylaxis, will place MPO boots. Patient remains very critically ill with overall very guarded prognosis. There is a high risk of mortality given her multiorgan system disease. Patient's updated today and unless care becomes futile he wishes all efforts are made to save her life. She remains a full code. MTDD
[2020-12-14] MEDS: ASPIRIN 300 MG SUPP PR SCH (10:38)
[2020-12-14] MEDS ORDERED: METOPROLOL 5 MG/5 ML VIAL IV STA (10:59)
[2020-12-14] MEDS ORDERED: METOPROLOL 5 MG/5 ML VIAL As Ordered ONE (10:59)
[2020-12-14] MEDS: MIDAZOLAM INJ 2MG/2ML VIAL (J2250 PER 1MG) IV PRN (11:11)
[2020-12-14] MEDS: METOPROLOL TART 25 MG TABLET PEG SCH ×3 (11:26→23:04)
[2020-12-14] MEDS ORDERED: MIDAZOLAM INJ 2MG/2ML VIAL (J2250 PER 1MG) IV ONE (11:32)
[2020-12-14] MEDS ORDERED: MIDAZOLAM INJ 2MG/2ML VIAL (J2250 PER 1MG) As Ordered ONE (11:33)
[2020-12-14 12:22] LABS: HEMATOCRIT 29.1 % (36.0-47.0); MEAN CORPUSCULAR HEMOGLOBIN 28.6 pg (27.0-33.0); MEAN CORPUSCULAR HGB CONC 30.9 g/dl (32.0-36.5); MEAN CORPUSCULAR VOLUME 92.4 fl (80.0-96.0); PLATELET COUNT, AUTOMATED 202 10^3/uL (150-450); RED BLOOD COUNT 3.15 10^6/uL (4.00-5.40); WHITE BLOOD COUNT 12.4 10^3/uL (4.0-10.0)
[2020-12-14] MEDS: MORPHINE 4 MG/ML 1ML VIAL/SYRINGE (J2270) IV PRN ×2 (12:29→15:00)
[2020-12-14] MEDS ORDERED: AMIODARONE HCL 150 MG in IV 1 EA IV ONE (12:40)
[2020-12-14 12:43] LABS: MAGNESIUM LEVEL 2.2 MG/DL (1.8-2.4); PHOSPHORUS LEVEL 3.1 MG/DL (2.5-4.9)
[2020-12-14 12:45] LABS: CK-MB VALUE MASS 6.5 NG/ML (<3.6); MB/CK RELATIVE INDEX 4.71 (< OR =4); TROPONIN I 0.96 NG/ML (< 0.10)
[2020-12-14 12:57] LABS: CALCIUM LEVEL 8.6 MG/DL (8.8-10.2); CREATININE FOR GFR 1.56 MG/DL (0.55-1.30); GLOMERULAR FILTRATION RATE 35.9 (>45); POTASSIUM SERUM 3.6 MEQ/L (3.5-5.1)
[2020-12-14] MEDS ORDERED: AMIODARONE HCL 360 MG in IV 1 EA IV SCH (13:00)
[2020-12-14] MEDS ORDERED: NS 500 ML IV ONE (13:25)
[2020-12-14 15:18] LABS: CK-MB VALUE MASS 6.4 NG/ML (<3.6); MB/CK RELATIVE INDEX 4.08 (< OR =4); TROPONIN I 0.77 NG/ML (< 0.10)
[2020-12-14] MEDS: AMIODARONE HCL 360 MG in IV 1 EA IV SCH (17:21)
[2020-12-15] VITALS (45 sets, daily range): BP systolic 75–168; BP diastolic 43–92
[2020-12-15 00:24] LABS: HEMATOCRIT 24.5 % (36.0-47.0); HEMOGLOBIN 7.9 g/dl (12.0-15.5); MEAN CORPUSCULAR HEMOGLOBIN 29.3 pg (27.0-33.0); MEAN CORPUSCULAR HGB CONC 32.2 g/dl (32.0-36.5); MEAN CORPUSCULAR VOLUME 90.7 fl (80.0-96.0); PLATELET COUNT, AUTOMATED 198 10^3/uL (150-450); WHITE BLOOD COUNT 12.5 10^3/uL (4.0-10.0)
[2020-12-15] MEDS: ALBUTEROL SULFATE 2.5 MG/0.5 ML INH NEB SOLN NEB SCH ×7 (00:28→23:45)
[2020-12-15] MEDS ORDERED: CALCIUM GLUCONATE 1,000 MG in D5W MINI-BAG PLUS 100 ML IV ONE (00:35)
[2020-12-15] MEDS: methylPREDNISolone 125MG 2ML VIAL IV SCH ×3 (00:38→16:00)
[2020-12-15 00:39] LABS: CALCIUM LEVEL 8.6 MG/DL (8.8-10.2); CREATININE FOR GFR 1.46 MG/DL (0.55-1.30); GLOMERULAR FILTRATION RATE 38.8 (>45); MAGNESIUM LEVEL 2.1 MG/DL (1.8-2.4); PHOSPHORUS LEVEL 1.8 MG/DL (2.5-4.9); POTASSIUM SERUM 3.7 MEQ/L (3.5-5.1)
[2020-12-15] MEDS ORDERED: SODIUM PHOSPHATE INJ 30 MMOL in D5W 500 ML IV ONE ×2 (01:00→20:00)
[2020-12-15] MEDS ORDERED: KCL 20MEQ IN 100ML SWI (KRUN) 20 MEQ in IV 1 EA IV ONE ×4 (01:00→14:00)
[2020-12-15] MEDS: MIDAZOLAM INJ 2MG/2ML VIAL (J2250 PER 1MG) IV PRN ×9 (02:15→21:34)
[2020-12-15] MEDS: fentaNYL 100 MCG/2 ML INJECTION (J3010) IV PRN ×7 (02:49→21:34)
[2020-12-15] MEDS: MIDAZOLAM HCL 100 MG in D5W 80 ML IV SCH ×2 (05:07→15:18)
[2020-12-15] MEDS: PIPERACILLIN/TAZOBACTAM SOD 4.5 GM in D5W MINI-BAG PLUS 50 ML IV SCH ×3 (05:08→21:35)
[2020-12-15] MEDS: HEPARIN SOD (PORCINE) 5000UNITS/ML 1ML VIAL/SYRINGE SQ SCH ×3 (05:08→21:35)
[2020-12-15] MEDS: METOPROLOL TART 25 MG TABLET PEG SCH (05:09)
[2020-12-15] MEDS: AMIODARONE HCL 360 MG in IV 1 EA IV SCH (05:09)
[2020-12-15 05:20] LABS: ABG BASE EXCESS -2.6 (-2.0-2.0); ABG HCO3 20.9 MEQ/L (22.0-26.0); ABG O2 SATURATION 95.4 % (95.0-99.0); ABG PARTIAL PRESSURE CO2 30.8 mmHg (35.0-45.0); ABG PARTIAL PRESSURE O2 77.1 mmHg (75.0-100.0); ABG STANDARD HCO3 22.3 MEQ/L (22.0-26.0); ABG TOTAL CO2 21.9 MEQ/L (23.0-31.0)
[2020-12-15 05:33] LABS: ALBUMIN 1.4 GM/DL (3.2-5.2); CALCIUM LEVEL 8.1 MG/DL (8.8-10.2); CREATININE FOR GFR 1.35 MG/DL (0.55-1.30); GLOMERULAR FILTRATION RATE 42.4 (>45); POTASSIUM SERUM 3.8 MEQ/L (3.5-5.1); TOTAL PROTEIN 5.1 GM/DL (6.4-8.2)
--- NOTE | 2020-12-15 08:18 | REP ---
INDICATION: RESPIRATORY FAILURE. 6:45 a.m. portable chest radiograph 12/15/2020. COMPARISON: Comparison study 12/14/2020. TECHNIQUE: Portable upright AP chest radiograph. FINDINGS: Endotracheal tube remains in good position at the level of the transverse aorta. Bilateral internal jugular central venous catheters are again seen in place unchanged in position terminating in the expected location of superior vena cava. Bilateral apical chest tubes are again noted in place. There is no evidence of pneumothorax. Extensive pulmonary parenchymal opacification is seen consistent with diffuse interstitial edema pattern or diffuse infiltrates. These are most pronounced in the upper lobes. No significant change from yesterday morning's radiograph.. IMPRESSION: Extensive diffuse interstitial lung disease radiographically unchanged. Lines and tubes unchanged as well. There is no evidence of pneumothorax. Bilateral chest tubes.. <Electronically signed by Terence Tran > 12/15/20 [id number]
[2020-12-15 08:49] LABS: VANCOMYCIN RANDOM 15.9 UG/ML
[2020-12-15] MEDS ORDERED: CLOPIDOGREL 75 MG TAB PO SCH (09:00)
[2020-12-15] MEDS: PANTOPRAZOLE 40MG VIAL (C9113 PER 1) IV SCH (09:08)
[2020-12-15] MEDS: ASPIRIN 300 MG SUPP PR SCH (09:08)
[2020-12-15] MEDS: CHLORHEXIDINE GLUCONATE 0.12 % 15ML UDC (PERIDEX ORAL RINSE) MT SCH ×2 (09:08→21:35)
[2020-12-15] MEDS: LACRILUBE (AKWA TEARS) OPHTH OINT 3.5 GM OU SCH ×3 (09:08→21:35)
[2020-12-15] MEDS: CLOPIDOGREL 75 MG TAB NG SCH (09:08)
[2020-12-15] MEDS ORDERED: VANCOMYCIN INTERMITTENT/PULSE DOSING BY CLINICAL PHARMACIST PER DOSING PROTOCOL XX SCH (09:40)
[2020-12-15] MEDS ORDERED: VANCOMYCIN HCL 500 MG in D5W MINI-BAG PLUS 100 ML IV ONE (10:00)
--- NOTE | 2020-12-15 10:55 | CR ---
CARDIOLOGY CONSULTATION DATE: 12/14/2020 DICTATED BY: Vinny Ochoa DO ATTENDING/CONSULTING PHYSICIAN: Berna Witt MD. REFERRING PHYSICIAN: Hector Ferrara DO, [facility]. REASON FOR CONSULTATION: ST elevation on EKG. HISTORY OF PRESENT ILLNESS: Ms. Ritchie is a 60-year-old female with a past medical history significant for seropositive rheumatoid arthritis, COPD, memory impairment, vertigo, depression/anxiety, GERD and migraines who had initially presented to [facility] with complaints of shortness of breath, fatigue and cough. The patient's history is somewhat limited as the patient originally presented intubated and sedated. Most of the history is obtained from the patient's medical record as well as the patient's . It appears that approximately 2 and 1/2 weeks ago the patient was taking Rinvoq tablets for her RA. She was seen in follow up with her ceramic tile mechanic at the time who had noted elevated liver enzymes and had stopped this medication. During that next week period the patient had apparently been telling her that she had some fevers, chills, some shortness of breath and cough. This had apparently progressed at which point she had presented to the [facility] for these cold and flu like symptoms. There she was found to be in hypoxic respiratory failure. She was initially placed on supplemental oxygen with nasal cannula then transition to CPAP and then subsequently was intubated and placed on mechanical ventilation. The patient was transferred from [facility] to [facility] on 12/12/2020. On presentation to [facility] the patient was in critical condition and was noted to be severely hypoxic even with 100% FiO2 with saturations down to as low 60%. Additionally the patient was found to have subcutaneous emphysema. A chest x-ray was obtained which did confirm suspicion for bilateral pneumothorax. The patient then had 2 chest tubes bilaterally placed with improvement in her subcutaneous emphysema and resolution of her pneumothoraxes. Additionally the patient at the time also had her endotracheal tube exchanged. The endotracheal tube placed at an outside hospital was somewhat bloody and clogged up. On exchange the patient was noted to have some blood in the back of the throat and it was thought that on differential that the patient may have a pulmonary hemorrhage. She did receive a bedside bronchoscopy at the time as well which demonstrated mucus in the airways which was more consistent with likely infectious disease. Since that time the patient had also developed oliguria and acute renal failure likely secondary to septic shock/ARDS. She was placed on CRRT yesterday. She is continued on paralytics. She does remain in metabolic acidosis. Nephrology is currently following and managing her CRRT. Pulmonary critical care medicine is managing her acute respiratory failure and her septic shock. Overnight approximately around 5:00 a.m. the patient was noted to have what appeared to be some ST elevations on her telemetry. An EKG was ordered at the time which demonstrated somewhat diffuse ST elevations not fitting a specific pattern although slightly more prominent in the inferior lateral leads. was followed up with a cardiac troponin which was elevated at 0.94. Of note on presentation the patient did have significant metabolic acidosis and severe hypoxia which could lead to a presentation of demand ischemia. Cardiology was consulted for further evaluation and management of patients elevated troponin and EKG changes. PAST MEDICAL HISTORY: 1. Seropositive rheumatoid arthritis. 2. 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 3. Vertigo. 4. Depression/anxiety. 5. GERD. 6. Migraines. 7. Memory impairment. PAST SURGICAL HISTORY: 1. Appendectomy. 2. Tubal ligation. 3. Bilateral chest tube placement. 4. Left sided internal jugular dialysis catheter placement. 5. Right sided internal jugular dialysis catheter placement. 6. Left sided central venous catheter and internal jugular vein. FAMILY HISTORY: Patient's family history is positive for cancer in her mother, father and brother. Her brother has a history of heart disease. SOCIAL HISTORY: Patient is . She lives at home with her . She is a smoker. As far as alcohol use it is unclear whether she drinks alcohol or if she is a heavy drinker. INPATIENT MEDICATIONS: 1. Plavix 75 mg daily. 2. Zosyn 4.5 grams q8h. 3. Aspirin 300 mg daily. 4. Heparin 5000 units q8h subcutaneously. 5. Versed drip. 6. Solu-Medrol 125 mg q8h. 7. Protonix 40 mg daily I.V. 8. Albuterol 2.5 mg every 4 hours required. 9. Versed 2 mg every 15 minutes p.r.n. for agitation. REVIEW OF SYSTEMS: Patient's review of systems was unobtainable as the patient is currently sedated. PHYSICAL EXAMINATION: Vital signs: Temperature 96.7, pulse 80, respiratory rate 24, blood pressure 146/87, pulse oximetry 98% on mechanical ventilation with an FiO2 of 70%. General: Patient is currently sedated. She is currently paralyzed with paralytics which have just been discontinued. She appears critically ill. HEENT: Atraumatic, normocephalic. Eyes are nonicteric. Trachea is midline. She has endotracheal tube in place. She has a right sided internal jugular hemodialysis catheter in place and currently in use. She has a left internal jugular central venous catheter. There is no palpable subcutaneous air. There is some bruising around her neck. Cardiovascular: There is a normal S1 and S2. There is a regular rate and rhythm. There are no murmurs, clicks or rubs auscultated. The patient has no visible JVD. Pulmonary: Patient has clear breath sounds bilaterally although somewhat diminished throughout. There are no wheezes or rales. There is some scattered rhonchi. She does have bilateral chest tubes in place with appropriate air leak. There is no subcutaneous air palpated throughout her chest or arms. Abdomen: Soft, nondistended, nontender. There are normal active bowel sounds throughout. There is no abdominal bruising. Extremities: Patient has full and equal pulses bilateral upper and lower extremities. There is no edema. She has peripheral I.V.s in bilateral arms in use. There is Arturo and sequentials currently in place. Neurologic: No focal neurological deficits. Patient is currently with paralytics and she is sedated fully. LINE/ACCESS: 1. Patient has a right sided IJ hemodialysis catheter in place and in use. 2. She has a left sided internal jugular central venous catheter in place. 3. She has bilateral chest tubes in place. LABORATORY DATA: Hematology: White blood cells 14.6, hemoglobin 8.5, hematocrit 28.5, platelet count 227. Chemistries: Sodium 139, potassium 3.5, chloride 110, CO2 18, BUN 40, creatinine 2.47, fasting glucose 195, calcium 7.6, phosphorus 4.6. Arterial blood gas: pH 7.210, PCO2 44.9, PO2 151.4. Troponin 0.94. IMAGING: Chest x-ray from 12/14/2020 does demonstrate persistent bilateral infiltrates. She has bilateral internal jugular central venous lines in appropriate place. She has endotracheal tube and a nasogastric tube in place as well. She has bilateral chest tubes. No evidence of pneumothorax which appears to have resolved from previous imaging. ASSESSMENT AND PLANS: Ms. Ritchie is a 60-year-old female with a past medical history significant for seropositive rheumatoid arthritis, smoking, and COPD who had presented originally to [facility] with a complaint of shortness of breath. She was found to be hypoxic and subsequently ended up in acute respiratory failure requiring intubation with mechanical ventilation. She was transferred to [facility] where she was found to be severely hypoxic despite intubation. She had subcutaneous air and bilateral pneumothoraxes. Chest tubes were placed bilaterally with improvement. the patient was started on empiric antibiotics for suspected opportunistic infection given her history of immunosuppression from rheumatoid arthritis drugs. The patient was showing to make small improvement clinically; however, this morning she was noted to have some ST elevations on telemetry. EKG obtained demonstrated ST elevations somewhat diffusely although possibly consistent with an inferolateral STEMI. Troponin was ordered which demonstrated elevation at 0.94. Cardiology was consulted for further evaluation and management. 1. ST elevation AZ versus pericarditis vs demand ischemia: Patient had EKG which demonstrated ST elevations which appear primarily in the inferolateral leads II, III, aVF and V2-V6. Although on closer examination may be more diffuse. Troponin is elevated currently on 0.94. Looking at her baseline EKG on presentation this is a new finding. Her EKG is not entirely consistent with an inferolateral AZ and may be more likely secondary to demand ischemia or even a pericarditis. She certainly does have risk for coronary artery disease given she has an extensive history of smoking and obesity. It is unclear whether she has a history of diabetes or not as I did not find this documented in any of her records previously. Currently she is certainly too unstable for a cardiac catheterization. Additionally given her bilateral chest tubes and central lines she would not be a candidate for thrombolysis. At this point in time we will continue to trend troponins with EKGs to see development. She has received both aspirin and Plavix. If this is truly a STEMI she will likely need to be heparinized. We will not be able to use Lovenox given her elevated creatinine. On the differential is pericarditis given her rheumatoid arthritis. Her EKG can show somewhat diffuse ST elevations. The patient has been on high dose steroids which would make pericarditis an unlikely finding in this setting however she may also have demand ischemia given her critical illness. For now we will continue to trend her troponins with EKGs to see the evolution of this. She is currently off pressors and we will hold off on a beta-edward for now to see how this evolves, but her blood pressure is fairly adequate at most recent 158/90 therefore she would tolerate a beta-edward if needed. 2. Acute hypoxic respiratory failure requiring intubation with mechanical ventilation: Patient is currently intubated with mechanical ventilation. She has acute hypoxic respiratory failure. It looks like it is probably secondary to an infectious process. This is being managed by pulmonary critical care medicine. Patient is on empiric antibiotics. 3. Acute renal failure: Patient is in acute renal failure and oliguric. She is on CRRT at this time. This is being managed by nephrology. RECOMMENDATIONS: Current recommendations are to continue the aspirin and Plavix. We will continue to follow troponins and EKG. If convincing for STEMI we will start heparin. At this point in time the patient is not a candidate for a PCI. Additionally she is not a candidate for thrombolysis. Her elevated troponins are most likely consistent with a demand ischemia. We will continue to follow the patient during her hospitalization. At this current time the patient remains critically ill. If she does survive her current hospitalization a diagnostic heart catheterization would be recommended ADDENDUM Berna Witt MD: This is an addendum to Dr. Vinny Ochoa's note. SUBJECTIVE: I was asked by Dr. Ferrara to see the patient because she has ST elevation on her EKG. Briefly, she is a 60-year-old female who was admitted as a transfer from an outside hospital two days ago in the setting of ARDS with acute respiratory failure, severely hypoxemic with very aggressive interventions, re-intubation, putting in bilateral chest tube. Her condition slightly improved but unfortunately she persistently is anuric. This morning, it was noted by the attending nurse that her ST segments looked elevated on the monitor and consequently a 12 lead ECG demonstrated the presence of ST elevations approximately 0.5 to 1 mm that were concave in nature in leads II and AVF but not lead III, also in lead I but no AVL, and leads V5 and V6. The remaining leads had very unimpressive ST-T abnormalities. Cardiac enzymes obtained at 8:50 meaning approximately [address] segment elevation was registered and revealed troponin 0.9. Because the patient was intubated and paralyzed, we certainly do not know whether she has any symptoms. She was administered aspirin and Plavix, she is already on Heparin 5000 units sub q. three times a day dose. Repeated EKG approximately at 11 o'clock revealed this time atrial fibrillation with mildly tachycardic response but the ST segment abnormalities are similar to the morning. She otherwise is maintaining her blood pressure. She is currently on continuous CVVH and remains anuric. PHYSICAL EXAMINATION: Her lungs reveal bilateral faint rhonchi. I do not appreciate any wheezing. Heart exam reveals an irregular tachycardia without any appreciable gallop or murmur. She had an echocardiogram done yesterday that was essentially normal. She certainly had preserved left ventricular systolic function. No significant valvular disease. Repeated numerous chest x-rays revealed appropriate position of her numerous tubes and bilateral intersitial infiltrates consistent with ARDS. As far as the management is concerned, unfortunately patient is not a candidate for transfer, she is critically ill and the diagnosis of ST elevation AZ remains uncertain. Even though I do believe that it is in the differential diagnosis I would also consider other diagnoses like stress induced cardiomyopathy or even pericarditis. We will monitor and cycle her troponins and obtain serial EKGs over the course of the next few days. She already is on dual antiplatelet therapy but did not reveal thrombolytics and she is not on full dose anticoagulation. With her bilateral chest tubes, continuous dialysis, renal failure, I am afraid that the risk of definitely thrombolytics but even with the risk of full anticoagulation outweighs its benefit. As far as the management of atrial fibrillation is concerned, she just went into atrial fibrillation about an hour ago. It was probably precipitated by the fact that her paralytic agent was stopped which increased her respiratory rate and tachycardia and puts more stress on the patient. I will attempt to restore sinus mechanism and will load patient with amiodarone IV in the starting loading protocol. Otherwise, we will use metoprolol as needed provided blood pressure remains steady. Her condition is certainly critical and prognosis is poor but she certainly still has a fighting chance and we will support her as much as possible. Addendum dictated: FELECIA 12/14/2020 1249 Addendum transcribed: elizabeth 12/14/2020 1250 LEFTY
--- NOTE | 2020-12-15 11:11 | IPN ---
PROGRESS NOTE DATE: 12/15/2020 SUBJECTIVE: Mrs. Ritchie was seen and examined this morning. She does remain critically ill. Yesterday she had been noted to develop atrial fibrillation with rapid ventricular response. She has since converted to sinus rhythm; however, last night she was also noted to be somewhat hypothermic and bradycardic. Bradycardia probably secondary to her hypothermia. Additionally, she has remained somewhat hypotensive despite Levophed. Regarding her ST elevations with mild troponin elevation, at this point it does not seem like she is having STEMI likely demand ischemia. She has not received any beta-edward due to her low blood pressure. She is continued on aspirin and Plavix. There have been otherwise no more cardiac events; however, the patient does remain critically ill with a fairly poor prognosis. OBJECTIVE: VITAL SIGNS: Temperature 97.2, pulse 71, respiratory rate 24, blood pressure 115/58, pulse oximetry 97% on ventilator with an FiO2 of 65. GENERAL: The patient is currently intubated with mechanical ventilation. She does appear critically ill. She is on a Versed drip and sedated. She does react to pain. HEENT: Atraumatic, normocephalic. Eyes are nonicteric. Her trachea is midline. Her pupils are reactive to light. She has an endotracheal tube in place. She has a right-sided IJ dialysis catheter in place and currently in use with CRRT. She has a left-sided IJ central venous catheter in place. CARDIOVASCULAR: There is a normal S1, S2. She has a regular rate with a regular rhythm currently. There are no clicks, rubs, or murmurs auscultated. There is no visible JVD. PULMONARY: The patient has scattered rhonchi. She has bilateral chest tubes currently in place. There is no subcutaneous air palpated. She currently is set a respiratory rate of 24. She does have triggered breath; however, mainly running at the rate of the ventilator. There are no wheezes or rales. There are some scattered rhonchi. ABDOMEN: The patient's abdomen is soft, nondistended, and nontender with normoactive bowel sounds throughout. EXTREMITIES: There is no edema. There are full and equal pulses bilateral upper and lower extremities. The patient has clubbing of the digits bilaterally. NEUROLOGIC: There are no focal neurological deficits. The patient does react to pain. Her eyes are equal and reactive to light. LABORATORY DATA: Hematology: White blood cell 12.5, hemoglobin 7.9, hematocrit 24.5, platelet count 198,000. Chemistries: Sodium 137, potassium 3.8, chloride 105, carbon dioxide 26, BUN 22, creatinine 1.35, fasting glucose 139, calcium 8.1, phosphorus 4.0, total bilirubin 1.0. AST 131, ALT 82, alkaline phosphatase 65, lactate dehydrogenase 448, total CK 103. IMAGING DATA: X-ray from 12/15 demonstrating once again diffuse bilateral infiltrate, as well as endotracheal tube in satisfactory position and bilateral chest tubes. ASSESSMENT AND PLAN: Mrs. Ritchie is a 60-year-old female with a past medical history significant for rheumatoid arthritis previously on immunosuppressant therapy who had developed some shortness of breath progressively, as well as flu-like symptoms and presented to [facility] where she was found to be in acute respiratory failure. She was placed on CPAP and had failed and was significantly intubated, placed on mechanical ventilation, and transferred to [facility]. On presentation, she was found to have bilateral pneumothoraces with subcutaneous emphysema. Bilateral chest tubes were placed. The patient was noted to be significantly hypoxic with O2 saturations of 60%. Since that time, the patient was found to have elevated ST segments on EKG, as well as minimal elevations of her troponin levels. Most recently, the patient was noted to be in atrial fibrillation with rapid ventricular response (RVR). Today, the patient is in sinus rhythm; however, is fairly hypotensive. 1. Elevated troponins with EKG changes likely secondary demand ischemia and less likely ST segment elevation myocardial infarction (STEMI). The patient had developed some ST elevations yesterday. Troponins were elevated at 0.96. On repeat it did come down to 0.77. It does not appear that the patient is having an acute STEMI. Her EKG changes do show some ST elevations that do appear to be in the inferolateral leads; however, there are also some ST elevation in lead 1 and not in aVF so this is an inconsistent pattern; however, it does not completely rule out acute coronary syndrome (ACS). At this current time, the patient is on aspirin and Plavix. Regardless she is certainly not a candidate for any type of percutaneous coronary intervention (PCI) or catheter-based intervention at this point in time. If the patient does happen to make it through her critical illness, she will would be recommended for heart catheterization in the future. However, currently would just recommend continuing her Plavix and her aspirin. It is more likely that the patient is experiencing some demand ischemia given her severe hypoxia, metabolic acidosis, and critical illness. 2. Atrial fibrillation with rapid ventricular response. The patient was noted to go into atrial fibrillation with rapid ventricular response yesterday. She has since converted back to sinus rhythm. She has not received any medications. Amiodarone was ordered, as well as Lopressor; however, the patient's blood pressure would not tolerate these medications. Additionally, the patient was noted to be somewhat hypothermic yesterday, which seems probably likely the cause of her bradycardia. Her heart rate dipped down to the 40-50s. She had been placed on a warming blanket, which has somewhat improved her bradycardia. At this point in time, she does remain in sinus rhythm. Likelihood is that her atrial fibrillation can be explained by multiple processes such as her acute infection/sepsis and metabolic acidosis, as well as her severe hypoxia, as she was noted to present originally with an O2 saturation of 60%. At this point in time, we will continue to monitor; however, the patient is currently in sinus rhythm. 3. Hypotension. The patient is currently hypotensive. She is on Levophed for management. She is not receiving any cardiac antihypertensives such as Lopressor or amiodarone. RECOMMENDATIONS: The current recommendations are to continue her aspirin and Plavix. Continue to monitor the patient's heart rate. At this point in time, she is not tachycardic and she is not in atrial fibrillation. Even if she does go into atrial fibrillation if she is not significantly tachycardic, it may warrant to avoid treatment as it is likely driven by her acidosis and hypoxemia. At this point in time, the patient remains critically ill. She overall has a fairly poor prognosis. If she does happen to survive this hospitalization, she will need cardiac catheterization in the near future. LEFTY
--- NOTE | 2020-12-15 12:10 | ECHO ---
DATE OF PROCEDURE: 12/13/2020 Age: 60 Gender: Female REFERRING PHYSICIAN: Hector Ferrara D.O. PATIENT LOCATION: Room 3210. REASON FOR STUDY: Sepsis. 2D MEASUREMENTS: IVS 1.0 cm LV 4.3 cm LVPW 1.0 cm LA 3.4 cm Aorta 3.0 cm IVC 2.3 cm DOPPLER MEASUREMENT Peak velocity across the aortic valve 1.7 m/s Peak velocity across the LVOT 1.0 m/s Mitral E 0.83 Mitral A 1.1 with a ratio of 0.7 Maximum tricuspid valve velocity 2.3 m/s 2D COMMENTS: 1. Normal left ventricular size, wall thickness, and normal global left ventricular systolic function. The estimated left ventricular systolic ejection fraction is 60% to 65%. 2. Normal left atrium. Normal right atrium and right ventricle. 3. The atrial septum appeared to be normal without evidence of defect or shunt. 4. Normal aortic root. 5. No pericardial effusion seen. 6. Minimally calcified aortic valve with normal leaflet excursion. Minimally calcified mitral annulus with normal anterior mitral valve leaflet motion. Normal tricuspid valve. The pulmonic valve and proximal pulmonary artery branches were not well visualized. 7. The inferior vena cava was mildly enlarged, central venous pressure might be elevated. DOPPLER: Detects trace aortic regurgitation, trace mitral regurgitation, and trace to mild tricuspid regurgitation. The calculated pulmonary artery systolic pressure is about normal. Abnormal relaxation pattern was noted across the mitral valve leaflets, as well as the mitral valve annulus consistent with features of grade 1 left ventricular diastolic dysfunction. IMPRESSION: 1. Normal global left ventricular systolic function. There were some features of grade 1 left ventricular diastolic dysfunction manifested by abnormal relaxation. 2. Aortic valve sclerosis with trace aortic regurgitation, but no aortic stenosis. 3. Mitral annular calcification with trace mitral regurgitation. 4. Trace to mild tricuspid regurgitation. 5. The inferior vena cava was mildly enlarged, central venous pressure might be elevated. MTDD
[2020-12-15] MEDS ORDERED: MIDAZOLAM HCL 100 MG in D5W 80 ML IV SCH (12:28)
[2020-12-15 12:36] LABS: HEMATOCRIT 23.2 % (36.0-47.0); HEMOGLOBIN 7.5 g/dl (12.0-15.5); MEAN CORPUSCULAR HEMOGLOBIN 28.6 pg (27.0-33.0); MEAN CORPUSCULAR HGB CONC 32.3 g/dl (32.0-36.5); MEAN CORPUSCULAR VOLUME 88.5 fl (80.0-96.0); PLATELET COUNT, AUTOMATED 192 10^3/uL (150-450); RED BLOOD COUNT 2.62 10^6/uL (4.00-5.40); WHITE BLOOD COUNT 13.4 10^3/uL (4.0-10.0)
[2020-12-15 12:55] LABS: CALCIUM LEVEL 8.3 MG/DL (8.8-10.2); CREATININE FOR GFR 1.24 MG/DL (0.55-1.30); GLOMERULAR FILTRATION RATE 46.8 (>45); MAGNESIUM LEVEL 2.3 MG/DL (1.8-2.4); PHOSPHORUS LEVEL 2.6 MG/DL (2.5-4.9); POTASSIUM SERUM 3.8 MEQ/L (3.5-5.1)
[2020-12-15] MEDS ORDERED: CALCIUM GLUCONATE 1,000 MG in NS 100 ML IV ONE (13:30)
--- NOTE | 2020-12-15 13:31 | CCN ---
CRITICAL CARE NOTE DATE: 12/15/2020 Patient was seen and examined this morning during bedside rounds. Overnight, patient was noted to be hypothermic. She required placement of a Becky Hugger with improvement in her temperatures. Patient remained on continuous renal replacement therapy (CRRT) overnight and into this morning. She did require low dose of pressors to maintain a mean arterial pressure (MAP) above 65, anywhere from 3-4 mcg/minute of Levophed. Patient was taken off of paralytics yesterday but is still on Versed for sedation. She at times will have episodes of ventilator synchrony and tachypnea with associated desaturation and was given as-needed Versed as well as as-needed Fentanyl with improvement. She is still maintained on 10 mg an hour of the Versed drip currently for sedation. Patient has still been anuric on CRRT. There is no fluid removal currently. PHYSICAL EXAMINATION: VITAL SIGNS: Temperature 97.0, pulse 78, respirations 24, blood pressure 120/63, oxygen saturation 93%-94% on 60% FiO2. Intake 2.6 liters, out 2.9 liters. GENERAL: Patient is intubated and sedated on mechanical ventilation. She is not responding to voice or opening eyes spontaneously but does withdraw slightly to painful stimuli. HEENT: Normocephalic, atraumatic. Pupils are equal and reactive to light bilaterally. Mucous membranes are moist. Tongue is midline. Neck is supple. There is a hemodialysis catheter and a left internal jugular (IJ) triple lumen in place. CARDIAC: Regular rate and rhythm, normal S1, S2. Unable to clearly auscultate any murmurs. PULMONARY: Coarse breath sounds bilaterally with more diminished breath sounds at the bases. No significant rhonchi or wheezing noted. ABDOMEN: Obese, soft, nontender, and nondistended. There are hypoactive bowel sounds present. EXTREMITIES: No significant lower extremity edema bilaterally or edema in the upper extremities. There is some clubbing noted. There is very minimal pitting sacral edema. LABORATORY DATA: WBC 12.5, hemoglobin 7.9, platelets 198. Chemistry: Sodium 137, potassium 3.8, chloride 105, bicarbonate 26, BUN 22, creatinine 1.35, glucose 139, calcium 8.1, phosphorus 4.0. AST and ALT 131 and 82, alkaline phosphatase 65. Troponin trended down to 0.77. ABG this morning: A pH 7.450, pCO2 of 30.8, pO2 of 77.1. IMAGING: Chest x-ray this morning shows bilateral chest tubes in place with no evidence of pneumothorax or subcutaneous emphysema. There are diffuse interstitial infiltrates bilaterally, unchanged. There is an endotracheal tube and an orogastric (OG) tube in good position. There is a right IJ hemodialysis catheter and a left IJ triple-lumen catheter, unchanged. ASSESSMENT AND PLAN: Ms. Ritchie is a 60-year-old female with a past medical history of rheumatoid arthritis, chronic obstructive pulmonary disease (COPD), depression, obesity, who presented initially at an outside hospital with acute hypoxemic respiratory failure, likely secondary to pneumonia and COPD exacerbation. Patient was intubated at the outside hospital and transferred to [facility] Intensive Care Unit for further care. Upon arrival at the intensive care unit (ICU), she was noted to be severely hypoxic with evidence of diffuse subcutaneous emphysema and bilateral pneumothoraces, requiring bilateral chest tube placement. Patient's hospital course was also complicated with acute renal failure with a severe metabolic acidosis requiring CRRT. Patient also had evidence of demand ischemia with EKG changes and positive troponins. 1. Neurologic: Patient is currently intubated and sedated. She was on paralytics initially for her severe hypoxemic respiratory failure, which had been discontinued yesterday. Off of paralytics on sedation, she is minimally responsive to painful stimuli but is not opening her eyes or following her commands appropriately. Will continue patient on Versed drip for sedation. She does have episodes of agitation and ventilatory synchrony, requiring as-needed Versed and as-needed Fentanyl for analgesia. Patient's neurologic status is somewhat difficult to assess given her continued needs for sedation with her hypoxemic respiratory failure. She did have very severe hypoxia initially upon presentation to our facility, so there is concern for possible anoxic injury. Would attempt to get a head CT today if possible. Will continue to attempt to wean down sedation as tolerated and will attempt weaning trials as tolerated. 2. Cardiac: Patient with no reported prior cardiac history. She does have various risk factors for coronary artery disease. She does have sepsis with the possibility of septic shock, as she was requiring vasopressors to maintain her blood pressure with a MAP above 65. Patient is requiring much less vasopressor to maintain her MAP above 65, and some of her hypotension is likely in the setting of her sedation as well as with her CRRT. Patient also was noted during this admission to have ST changes on the EKG with positive troponins. She likely had a degree of demand ischemia and less likely an acute ST-elevation myocardial infarction (GA), as her troponins had peaked at only 0.96. Appreciate cardiology consult and recommendations. She had been loaded with aspirin and Plavix, but anticoagulation is on hold currently given her risk for bleeding with the bilateral chest tubes currently. Will continue with aspirin and Plavix with monitoring for any active bleeding. Will continue Levophed to maintain a MAP above 65. Patient's echocardiogram had shown normal ejection fraction (EF) with mild elevation of the central venous pressure but no significant valvular pathology. Patient had developed new-onset atrial fibrillation yesterday with rapid ventricular response. Given her hypotension and need for vasopressors, she was started on amiodarone and was able to be converted into sinus rhythm. Will continue to monitor patient's heart rate at this time but suspect her new-onset atrial fibrillation was due to her severe metabolic stress with her metabolic acidosis and renal failure. Patient was started on metoprolol yesterday initially for rate control; however, given her low-dose vasopressor requirements, would discontinue the metoprolol for now and can give it as needed if needed, depending on her blood pressure and hemodynamic stability. 3. Pulmonary: Patient with a prior history of COPD, who presented initially with acute hypoxemic respiratory failure, likely secondary to pneumonia and COPD exacerbation. She was intubated at an outside hospital with complication of bilateral pneumothoraces and severe subcutaneous emphysema. Patient had bilateral chest tubes placed upon her arrival to [facility] ICU as well as an exchange of her endotracheal tube. Her subcutaneous emphysema and pneumothorax have resolved, and she has no significant air leak noted on her chest tubes bilaterally. Patient continues to have diffuse interstitial changes on x-ray and suspect she did develop acute respiratory distress syndrome (ARDS) with her pneumonia. Patient is on broad-spectrum antibiotics currently with Zosyn and vancomycin. Her sputum culture had grown yeast, and her fungal blood cultures are still pending. Will continue broad-spectrum antibiotics for now and will continue to de-escalate as tolerated. Her leukocytosis has been trending down. Patient's severe hypoxemic respiratory failure has been improving. She was on paralytics initially with Nimbex due to her severe hypoxia. She was taken off of paralytics yesterday, and we have been attempting to wean down her FiO2 as tolerated. Patient is still on volume control ventilation with settings of 440/24/60/5. Will continue with vent bundle care with HOB elevation and chlorhedaxine mouthwash Will continue with daily ABGs and CXR while intubated Will attempt to continue with ventilatory weaning as tolerated. Patient was initially started on high-dose steroids for the possibility of pulmonary alveolar hemorrhage, as initially when she presented to the hospital she was noted to have bloody secretions from the endotracheal tube. With her initial bronchoscopy, however, the blood appeared to be in the setting of her pneumonia, and she did not have evidence of diffuse alveolar hemorrhage. Will therefore continue with weaning down the Solu-Medrol. She was on 125 mg every 8, and will wean her down to 80 mg every 8 hours with a continued slow tapering of steroids. 4. Renal: Patient developed acute oliguric/anuric renal failure in the setting of her septic shock/ARDS with recent contrast exposure at the outside hospital. She had severe metabolic acidosis and was started on CRRT initially due to her hemodynamic instability with the septic shock. Appreciate renal consult and recommendations. Her acidosis has improved while on the CRRT. Patient continues to be oliguric with no urine output while on CRRT. She is currently not having any fluid removal, although she is requiring much less vasopressor requirements. Would discuss with nephrology in the morning about starting gentle fluid removal if tolerated. 5. Gastrointestinal (GI): Patient was initially trialed on tube feeds, which she did not tolerate. She was still just coming off of the paralytics at that time. Will start her on trophic tube feeds today with close monitoring of residuals. She does hve protein malnutrition. Will continue with Protonix for GI prophylaxis. 6. Hematologic: Patient with evidence of anemia, likely multifactorial, in the setting of her acute illness as well as recurrent blood draws and perhaps a component of dilutional with her acute renal failure. Will continue to trend hemoglobin and hematocrit (H and H) and transfuse as needed. If there is evidence of worsening demand ischemia, would transfuse a higher hemoglobin target. Will get an active type and screen. Deep venous thrombosis (DVT) prophylaxis: Heparin. Code status: Full code. TOTAL CRITICAL CARE TIME SPENT, NOT INCLUDING PROCEDURES: Approximately 1 hour and 10 minutes. MTDD
[2020-12-15 18:12] LABS: HEMATOCRIT 22.2 % (36.0-47.0); HEMOGLOBIN 7.4 g/dl (12.0-15.5); MEAN CORPUSCULAR HEMOGLOBIN 28.9 pg (27.0-33.0); MEAN CORPUSCULAR HGB CONC 33.3 g/dl (32.0-36.5); MEAN CORPUSCULAR VOLUME 86.7 fl (80.0-96.0); PLATELET COUNT, AUTOMATED 194 10^3/uL (150-450); RED BLOOD COUNT 2.56 10^6/uL (4.00-5.40); WHITE BLOOD COUNT 14.4 10^3/uL (4.0-10.0)
[2020-12-15 18:36] LABS: CALCIUM LEVEL 8.1 MG/DL (8.8-10.2); CREATININE FOR GFR 1.22 MG/DL (0.55-1.30); GLOMERULAR FILTRATION RATE 47.7 (>45); MAGNESIUM LEVEL 2.3 MG/DL (1.8-2.4); PHOSPHORUS LEVEL 2.2 MG/DL (2.5-4.9); POTASSIUM SERUM 4.2 MEQ/L (3.5-5.1)
--- NOTE | 2020-12-15 21:32 | REPVR ---
PROCEDURE INFORMATION: Exam: CT Head Without Contrast Exam date and time: 12/15/2020 9:19 PM Age: 60 years old Clinical indication: Altered mental status/memory loss; Confusion or disorientation; Additional info: Change in mental status TECHNIQUE: Imaging protocol: Computed tomography of the head without contrast. Radiation optimization: All CT scans at this facility use at least one of these dose optimization techniques: automated exposure control; mA and/or kV adjustment per patient size (includes targeted exams where dose is matched to clinical indication); or iterative reconstruction. COMPARISON: No relevant prior studies available. FINDINGS: Brain: There is moderate diffuse cerebellar atrophy. Mild parenchymal loss. Cerebral ventricles: No ventriculomegaly. Bones/joints: Unremarkable. No acute fracture. Paranasal sinuses: Visualized sinuses are unremarkable. No fluid levels. Mastoid air cells: Visualized mastoid air cells are well aerated. Vasculature: Atherosclerotic calcifications are demonstrated in the intracranial carotid arteries bilaterally as well as in the vertebral basilar system. Soft tissues: Unremarkable. IMPRESSION: 1. There is moderate diffuse cerebellar atrophy. 2. Mild cerebral atrophy. No significant white matter disease. 3. No acute intracranial findings. Electronically signed by: Emery Ho On 12/15/2020 21:32:47 PM
[2020-12-15] MEDS: NOREPINEPHRINE BITARTRATE 8 MG in D5W 492 ML IV SCH (21:37)
[2020-12-16] VITALS (83 sets, daily range): BP systolic 76–227; BP diastolic 42–102
[2020-12-16] MEDS: methylPREDNISolone 125MG 2ML VIAL IV SCH ×3 (01:06→16:40)
[2020-12-16] MEDS: MIDAZOLAM HCL 100 MG in D5W 80 ML IV SCH ×3 (01:13→20:36)
[2020-12-16] MEDS: MIDAZOLAM INJ 2MG/2ML VIAL (J2250 PER 1MG) IV PRN ×5 (02:27→20:09)
--- NOTE | 2020-12-16 02:30 | IPN ---
PROGRESS NOTE DATE: 12/15/2020 SUBJECTIVE: The patient is seen and examined this morning at the bedside in the intensive care unit with ICU nurse present as well and overnight events are reviewed. We stopped fluid removal yesterday evening when the patient's blood pressures were persistently soft in the 80s and she was becoming hypothermic. Overnight, there was no fluid removal. The patient is now on a bear hugger. Her troponin peaked at 0.9, felt to be secondary to demand ischemia. She has had no sign of renal recovery, no urine output. Her blood pressures were soft overnight and she was restarted on Levophed that has been requiring less than 5 mcg per minute and her central venous pressure (CVP) this morning is again elevated at 20 (yesterday was 14, the day before 19). REVIEW OF SYSTEMS: Unable to obtain secondary to clinical condition. OBJECTIVE: Vital signs: Temperature 97.2 on the bear hugger, was previously as low as 92.8, pulse74, respiratory rate 24, blood pressure 90/51, saturating 94% on FiO2 65%. Review of intake and output flow sheet over the course of the admission shows she is net positive 800 ml. General: The patient is seen intubated and sedated with the bear hugger. Pupils are reactive. Endotracheal tube and orogastric tube are in place. She has bilateral central lines in the neck. Central venous pressure (CVP) is 20. Heart sounds are regular. S1, S2. Peripheral pulses are palpable. I do not appreciate a murmur. Lungs show symmetric air entry bilaterally and overall breath sounds are improved as compared to prior days. Abdomen is soft. Bowel sounds were hypoactive. She is receiving tube feeds at 15 ml per hour. Genitourinary: Shows Baker catheter with no urine. Extremities: Show no edema or cyanosis. Neurologic: She is sedate. Chest also shows bilateral chest tube and continuous renal replacement therapy (CRRT) is in progress. LABORATORY STUDIES: Sodium 137, potassium 3.8, bicarbonate 25, BUN 20, creatinine 1.2, phosphorus 2.6, hemoglobin 7.5 and platelets 192. Chest x-ray done today shows extensive and intersitial lung disease and bilateral chest tubes. INPATIENT MEDICATIONS: Reviewed by myself, she received several runs of calcium gluconate. She continues on versed and Levophed infusions. She received several runs of potassium supplementations. She continues on IV Zosyn. She received phosphorus supplementation. She continues on IV vancomycin, aspirin and Plavix. Her Solu-Medrol is being decreased now on 80 mg IV q 8 hours. She continues on heparin 5000 units subcutaneous q 8 hours, Protonix 40 mg IV daily. PROBLEMS: 1. Acute renal failure in the setting of septic shock/acute respiratory distress syndrome (ARDS) and recent contrast exposure. The patient continues on continuous renal replacement therapy (CRRT) yesterday after having removed a little more than 2 liters of fluid slowly with continuous renal replacement therapy (CRRT). I decided to stop fluid removal as the patient was becoming hypothermic and blood pressures were again becoming soft, systolic 80s to the 90s. Overnight now she was resumed again on Levophed pressor support (but requiring less than 5 mcg per minute). Central venous pressure (CVP) today is at 20. I am going to again start removing fluid with continuous renal replacement therapy (CRRT) at 50 ml an hour. She is also now on tube feeds, but her hourly intakes are still not excessive. Fluid removal with continuous renal replacement therapy (CRRT) will be her hourly intake plus an additional 50 ml more off per hour. Her electrolytes and acid base status are otherwise acceptable. 2. Septic shock. The patient continues on broad-spectrum empiric antibiotics, vancomycin and Zosyn. Her IV steroids are being tapered by the primary team and were started for concern of inflammation and interstitial lung disease. She is back on Levophed pressor support and orders for fluid removal with continuous renal replacement therapy (CRRT) and to titrate depending upon the amount of her pressor requirement. Her blood cultures have had no growth and her white count has been down trending. 3. Vent dependent respiratory failure/acute respiratory distress syndrome (ARDS). FiO2 requirements have come down from 90% down to 65% and we will continue with fluid removal with continuous renal replacement therapy (CRRT) to try and keep her on the dry side; however, given her recurrent pressor requirement and recent demand ischemia and ST elevations, I am hesitant to be aggressive and fluid removal. Additionally, she is now hypothermic 4. Anemia. Hemoglobin is down to 7.5 on the latest labs and I suggest blood transfusion. I am going to give one unit. Additionally, she is on aspirin and Plavix due to recent ST-elevations/demand ischemia. She is also receiving heparin 5000 units subcutaneous q 8 hours. We will keep a close eye on her hemoglobin and hematocrit. It has been slowly downward trending. 5.
[2020-12-16] MEDS: fentaNYL 100 MCG/2 ML INJECTION (J3010) IV PRN ×4 (02:40→11:20)
[2020-12-16] MEDS: ALBUTEROL SULFATE 2.5 MG/0.5 ML INH NEB SOLN NEB SCH ×6 (03:17→23:44)
[2020-12-16] MEDS: PIPERACILLIN/TAZOBACTAM SOD 4.5 GM in D5W MINI-BAG PLUS 50 ML IV SCH ×3 (05:14→21:36)
[2020-12-16] MEDS: HEPARIN SOD (PORCINE) 5000UNITS/ML 1ML VIAL/SYRINGE SQ SCH ×3 (05:15→21:36)
[2020-12-16 05:31] LABS: ABG BASE EXCESS -0.8 (-2.0-2.0); ABG HCO3 22.3 MEQ/L (22.0-26.0); ABG PARTIAL PRESSURE CO2 30.9 mmHg (35.0-45.0); ABG PARTIAL PRESSURE O2 80.6 mmHg (75.0-100.0); ABG STANDARD HCO3 23.8 MEQ/L (22.0-26.0); ABG TOTAL CO2 23.2 MEQ/L (23.0-31.0); ABG pH (ARTERIAL) 7.476 UNITS (7.350-7.450)
[2020-12-16 05:38] LABS: HEMATOCRIT 24.7 % (36.0-47.0); HEMOGLOBIN 8.1 g/dl (12.0-15.5); MEAN CORPUSCULAR HEMOGLOBIN 27.6 pg (27.0-33.0); MEAN CORPUSCULAR HGB CONC 32.8 g/dl (32.0-36.5); PLATELET COUNT, AUTOMATED 189 10^3/uL (150-450); RED BLOOD COUNT 2.94 10^6/uL (4.00-5.40); WHITE BLOOD COUNT 17.3 10^3/uL (4.0-10.0)
[2020-12-16 05:57] LABS: CALCIUM LEVEL 7.8 MG/DL (8.8-10.2); CREATININE FOR GFR 1.39 MG/DL (0.55-1.30); MAGNESIUM LEVEL 2.1 MG/DL (1.8-2.4); PHOSPHORUS LEVEL 3.4 MG/DL (2.5-4.9); POTASSIUM SERUM 4.2 MEQ/L (3.5-5.1)
[2020-12-16 05:59] LABS: ALBUMIN 1.5 GM/DL (3.2-5.2); CALCIUM LEVEL 7.7 MG/DL (8.8-10.2); CREATININE FOR GFR 1.06 MG/DL (0.55-1.30); GLOMERULAR FILTRATION RATE 56.1 (>45); PHOSPHORUS LEVEL 3.6 MG/DL (2.5-4.9); POTASSIUM SERUM 4.3 MEQ/L (3.5-5.1)
[2020-12-16] MEDS ORDERED: CALCIUM GLUCONATE 1,000 MG in NS 100 ML IV ONE (08:00)
--- NOTE | 2020-12-16 08:22 | REP ---
INDICATION: RESPIRATORY FAILURE. COMPARISON: Comparison chest x-ray December 15, 2020 and December 14, 2020. TECHNIQUE: Portable upright AP chest radiograph. FINDINGS: Bilateral apical chest tubes remain in place. Endotracheal tube remains in good position at the level of the proximal clavicles. Bilateral internal jugular central venous lines and EKG monitoring electrodes are again seen. There is a diffuse interstitial lung disease pattern in the perihilar and upper lobe regions bilaterally with some involving the lower lobes as well. This is essentially unchanged. There is no evidence of pneumothorax. No new consolidation is seen. Heart size is borderline unchanged.. IMPRESSION: Stable diffuse lung disease findings. The lines in catheters unchanged as above.. <Electronically signed by Terence rTan > 12/16/20 0824
[2020-12-16] MEDS: CHLORHEXIDINE GLUCONATE 0.12 % 15ML UDC (PERIDEX ORAL RINSE) MT SCH ×2 (08:29→20:24)
[2020-12-16] MEDS: CLOPIDOGREL 75 MG TAB NG SCH (08:29)
[2020-12-16] MEDS: PANTOPRAZOLE 40MG VIAL (C9113 PER 1) IV SCH (08:30)
[2020-12-16] MEDS: LACRILUBE (AKWA TEARS) OPHTH OINT 3.5 GM OU SCH ×3 (08:30→20:09)
[2020-12-16] MEDS ORDERED: dexmedeTOMidine 200 MCG in IV 1 EA IV SCH (09:30)
[2020-12-16] MEDS ORDERED: AMIODARONE 150MG/3ML INJ (J0282) IVP STA (09:31)
[2020-12-16] MEDS ORDERED: AMIODARONE HCL 150 MG in IV 1 EA IV STA (09:41)
[2020-12-16] MEDS ORDERED: AMIODARONE HCL 360 MG in IV 1 EA IV SCH (10:00)
[2020-12-16] MEDS: VANCOMYCIN HCL 500 MG in D5W MINI-BAG PLUS 100 ML IV SCH ×2 (10:26→20:26)
[2020-12-16] MEDS: ASPIRIN 300 MG SUPP PR SCH (12:37)
--- NOTE | 2020-12-16 12:49 | CCN ---
CRITICAL CARE NOTE DATE: 12/16/2020 Patient was seen and examined this morning during bedside rounds. Overnight patient was continued on continuous renal replacement therapy (CRRT) and required low dose of Levophed but was able to tolerate some fluid removal with the CRRT. This morning, patient had gone into atrial fibrillation again with rapid ventricular response with a heart rate in the 150s. She did also have desaturation and had required 100% FiO2 on the ventilator. Patient does periodically have episodes with agitation, requiring the as-needed Versed and the as-needed Fentanyl, and during these episodes she will also desaturate. Given patient's need for pressors, she was given amiodarone 150 mg intravenous (IV) push and did have improvement in her heart rate. She then converted into sinus rhythm and was continued on the IV amiodarone loading dose. Patient's oxygenation improved, and she was able to be weaned down slightly on her FiO2. PHYSICAL EXAMINATION: VITAL SIGNS: Temperature 98.8, pulse 79, respirations 25, blood pressure 97/54, oxygen saturation 94% on 65% FiO2. Intake 2.8 liters, out 1.0 liter. GENERAL: Patient is intubated and sedated on mechanical ventilation. She appears to grimace and withdraw to painful stimuli but is not responding to voice or following commands. HEENT: Normocephalic, atraumatic. Pupils are equal and reactive to light bilaterally. Moist mucous membranes noted. NECK: Supple. Trachea is midline. There is a hemodialysis catheter in the right internal jugular (IJ) and a left IJ triple-lumen catheter. CARDIAC: Tachycardia. Normal S1 and S2. Unable to clearly auscultate any murmurs. PULMONARY: Course ventilator breath sounds bilaterally with no significant rhonchi or wheezing noted. There are scant crackles. ABDOMEN: Obese, soft, nontender, nondistended. Hypoactive bowel sounds present. EXTREMITIES: There is mild edema in the upper extremities and trace pitting edema in the lower extremities. LABORATORY DATA: WBC 17.3, hemoglobin 8.1, platelets 189. Chemistry: Sodium 137, potassium 4.3, chloride 103, bicarbonate 27, BUN 23, creatinine 1.06, glucose 150. Calcium is 7.7, phosphorus 2.6, magnesium 2.1. AST and ALT 84 and 67, albumin 1.5. ABG: A pH 7.476, pCO2 of 30.9, pO2 of 80.6. IMAGING: Head CT showed moderate diffuse cerebellar atrophy with mild parenchymal loss. No acute findings. Chest x-ray this morning showed diffuse fluffy opacities bilaterally, more prominent in the upper lobes and some in the lower lobes. There is an endotracheal (ET) tube and an orogastric (OG) tube in unchanged position. There are bilateral chest tubes in place, which are unchanged with no pneumothorax. There is a right IJ hemodialysis catheter in place and a left IJ triple lumen. ASSESSMENT AND PLAN: Ms. Ritchie is a 60-year-old female with a past medical history of rheumatoid arthritis, chronic obstructive pulmonary disease (COPD), depression, and obesity who presented initially at outside hospital with acute hypoxemic respiratory failure, likely secondary to pneumonia and COPD exacerbation. Patient was intubated at the outside hospital and transferred to [facility] for further care. Upon arrival at [facility] ([facility]), she was noted to be severely hypoxic with diffuse subcutaneous emphysema and bilateral pneumothoraces, requiring bilateral chest tube placement. Patient's subsequent hospital course was complicated also with atrial fibrillation with a episodes of rapid ventricular response as well as with demand ischemia and acute renal failure requiring CRRT. 1. Neurologic: Patient is currently intubated and sedated. She did have a head CT performed yesterday given concern for possible anoxic injury with her severe hypoxia initially. Her head CT did not show any significant findings to suggest anoxic brain injury. Will continue to attempt to wean patient down on sedation to better assess her weaning trial. She has issues, however, with weaning sedation with agitation causing ventilator synchrony and hypoxia. Will add Precedex to attempt to wean down the Versed. She can continue with as-needed Versed for agitation and Fentanyl as needed for analgesia. 2. Cardiac: Patient with issues at this hospitalization of demand ischemia, likely secondary to her septic shock and severe hypoxemic respiratory failure. She also had episodes of atrial fibrillation with rapid ventricular response, however, had converted into sinus rhythm until this morning. Patient had converted back into atrial fibrillation with a rapid ventricular response this morning. She does have issues with hypotension and had been on vasopressors at a low dose to maintain her mean arterial pressure (MAP) above 65. She was therefore given amiodarone 150 mg IV with return back into sinus rhythm. We will continue with the IV loading dose of amiodarone to help maintain sinus rhythm. Will continue patient on Levophed as needed to maintain a MAP above 65. With the low-dose Levophed she was able to tolerate some gentle fluid removal with CRRT. Patient will be continued on aspirin and Plavix for her demand ischemia. 3. Pulmonary: Patient with a prior history of COPD and presented with acute hypoxemic respiratory failure, likely secondary to pneumonia and COPD exacerbation. Patient was intubated at an outside hospital with complications of bilateral pneumothoraces and severe subcutaneous emphysema. Upon arrival to [facility], she had bilateral chest tubes placed with resolution of her pneumothoraces, and she did also have an endotracheal tube exchange. Patient with acute respiratory distress syndrome (ARDS) and pneumonia. She is on broad-spectrum antibiotics currently still with Zosyn and vancomycin. Her fungal blood cultures are still pending. She did have a sputum culture, which had grown yeast. Her leukocytosis had been trending down but did increase this morning. She has not had any new fevers so will continue to monitor. Patient is on volume control setting on the mechanical ventilator. Will decrease her respiratory rate today so that she will be on settings on 440/20/65 and 5. She did require increase in her FiO2 during her episodes of atrial fibrillation, but will continue to wean down FiO2 as tolerated. We are going with a lower positive end-expiratory pressure (PEEP) given her issue with the pneumothoraces, although she does not have significant air leak noted on her bilateral chest tubes currently. Will continue with daily arterial blood gases (ABGs) and chest x-rays while intubated. Will continue with attempts at ventilator weaning as tolerated. Will continue patient with Solu-Medrol, which was weaned down to 80 mg every 8 hours yesterday. Will likely wean down over the next several days. 4. Renal: Patient with acute oliguric/anuric renal failure in the setting of her septic shock/ARDS with the recent contrast exposure at the outside hospital. Patient is on CRRT due to her initial hemodynamic instability with septic shock. Appreciate renal consult and recommendations. Her acidosis and renal function have improved on the CRRT, and she has been able to tolerate some gentle fluid removal with the low dose vasopressor. She still has not had any significant urine output and likely will not have significant recovery of her renal function. 5. Gastrointestinal (GI): Patient was started on trophic tube feeds yesterday at 15 mL an hour, which she did tolerate without significant residuals. Will increase her tube feeds to 20 mL an hour and will add Beneprotein given her severe protein malnutrition and hypoalbuminemia. Continue with Protonix for GI prophylaxis. 5. Hematology: Patient had evidence of anemia, likely multifactorial in the setting of her acute illness as well as recurrent blood draws and perhaps a dilutional component from fluid overload with her acute renal failure. She was given 1 unit of packed red blood cells (PRBC) yesterday with appropriate response in her hemoglobin. Will continue to monitor and transfuse as needed. Deep venous thrombosis (DVT) prophylaxis: Heparin. Code status: Full code. TOTAL CRITICAL CARE TIME SPENT, NOT INCLUDING PROCEDURES: Approximately 55 minutes. MTDD
[2020-12-16] MEDS: fentaNYL CITRATE 1,000 MCG in NS 80 ML IV SCH (13:37)
--- NOTE | 2020-12-16 16:27 | CCN ---
NEPHROLOGY CRITICAL CARE NOTE DATE: 12/16/2020 SUBJECTIVE: Mrs. Kaye was seen this morning at her bedside in the Intensive Care Unit. She remains intubated and oliguric requiring CRRT at her bedside. Nursing staff reports that she had an episode of ventricular tachycardia and atrial fibrillation. She is currently receiving intravenous Amiodarone. Her blood pressure has been low, requiring pressors. She has tolerated a minimal amount of tube feedings so far. OBJECTIVE: PHYSICAL EXAMINATION: VITAL SIGNS: Temperature is 98.8 degrees Fahrenheit, heart rate in the 80's and respiratory rate in the 30's. Blood pressure is 92/52 mm of mercury on 5 mcg of Levophed. Oxygen saturation is 96% on the ventilator with 65% FiO2. INTAKE AND OUTPUT: Records show a positive fluid balance of about 1,300 mL over the last 24 hours with total urine output of 0 mL so far. HEENT: Her head is atraumatic. She has a dialysis catheter in the right internal jugular vein. Endotracheal and orogastric tubes are in place. HEART: Irregular in rhythm. LUNGS: Bilateral breath sounds are present. She has chest tubes bilaterally. ABDOMEN: Soft and nontender and bowel sounds are normal. EXTREMITIES: Without any cyanosis or clubbing. Lower extremity edema is 1+. MEDICATIONS: 1. Amiodarone infusion. 2. Fentanyl. 3. Vancomycin 500 mg every 12 hours. 4. Solu-Medrol 80 mg every 8 hours. 5. Plavix 75 mg daily. 6. Levophed infusion which is being titrated. 7. Zosyn 4.5 grams every 8 hours. 8. Artificial tears three times daily. 9. Midazolam infusion at 10 mL per hour. 10. Protonix 40 mg intravenous every 24 hours. 11. Proventil nebulizer 2.5 mg every 4 hours as needed. LABORATORY STUDIES: Today's labs show a white blood cell count of 17.3, hemoglobin 8.1 and hematocrit 24.7, platelet count 189. Sodium 137, potassium 4.3, CO2 27, BUN 23 and creatinine 1.06, glucose 150 and calcium 7.8. Total protein 5.7 and albumin 1.5. Blood gas showed a pH of 7.47, pco2 31 and pO2 80 with bicarbonate of 24. IMAGING: Chest x-ray done this morning showed bilateral diffuse lung infiltrates. She had a CT scan of the head done yesterday which showed moderate diffuse cerebellar atrophy and mild cerebral atrophy with no acute intracranial findings. PROBLEMS: 1. Septic shock - The patient is requiring Levophed. She remains on broad spectrum antibiotics with Zosyn and Vancomycin. Her blood cultures have been negative so far. 2. Oliguric acute renal failure - This patient is still extremely oliguric. She is requiring CRRT which is being performed at her bedside. We will continue with the same and her orders are being renewed. 3. Respiratory failure - The patient is doing much better in the ventilator with improved pH and oxygenation. She has bilateral infiltrates on her chest x-ray, most likely related to ARDS. 4. Anemia her anemia is significant and she was already transfused one unit of packed RBCs yesterday. She is likely to require further transfusions. 5. Nutrition she is receiving a minimal amount of tube feedings. Her tube feeds are going to be advanced if tolerated. At this point we will hold off on TPN. Overall her multiorgan problems are quite complicated and her prognosis remains guarded at best. I have reviewed her care plan with the nursing staff and with the Intensive Care Attending. Thirty-six minutes of critical care time at the bedside, during which no procedures were performed.
[2020-12-16] MEDS: AMIODARONE HCL 360 MG in IV 1 EA IV SCH (16:39)
[2020-12-16 18:41] LABS: HEMATOCRIT 25.6 % (36.0-47.0); HEMOGLOBIN 8.3 g/dl (12.0-15.5); MEAN CORPUSCULAR HEMOGLOBIN 27.6 pg (27.0-33.0); MEAN CORPUSCULAR HGB CONC 32.4 g/dl (32.0-36.5); PLATELET COUNT, AUTOMATED 205 10^3/uL (150-450); RED BLOOD COUNT 3.01 10^6/uL (4.00-5.40); WHITE BLOOD COUNT 23.7 10^3/uL (4.0-10.0)
[2020-12-16 19:01] LABS: CALCIUM LEVEL 7.7 MG/DL (8.8-10.2); CREATININE FOR GFR 1.31 MG/DL (0.55-1.30); GLOMERULAR FILTRATION RATE 43.9 (>45); MAGNESIUM LEVEL 2.2 MG/DL (1.8-2.4); PHOSPHORUS LEVEL 3.1 MG/DL (2.5-4.9); POTASSIUM SERUM 4.6 MEQ/L (3.5-5.1)
[2020-12-16] MEDS ORDERED: CALCIUM GLUCONATE 1,000 MG, VIAL MATE ADAPTER 1 EACH in NS 100 ML IV ONE (19:20)
--- NOTE | 2020-12-16 20:12 | ECGEPIP ---
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 No reciprocal changes, probably r related to pericarditis Last tracing on 12/12/20, 10:49 Electronically Signed on 12-16-2020 20:12:45 EDT by Hu Conway
--- NOTE | 2020-12-16 20:18 | ECGEPIP ---
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 Less ST elevation now noted and atrial f fibrillation is new Electronically Signed on 12-16-2020 20:17:40 EDT by Hu Conway
[2020-12-16] MEDS: NOREPINEPHRINE BITARTRATE 8 MG in D5W 492 ML IV SCH (20:28)
--- NOTE | 2020-12-16 20:29 | ECGEPIP ---
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 No remarkable changes but slower heart rate Electronically Signed on 12-16-2020 20:29:23 EDT by Hu Conway
--- NOTE | 2020-12-16 20:56 | ECGEPIP ---
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 Compared to prior tracings (2) in the system, Atrial Fib was present Electronically Signed on 12-16-2020 20:56:08 EDT by Hu Conway
[2020-12-17] VITALS (93 sets, daily range): BP systolic 82–153; BP diastolic 47–81
[2020-12-17] MEDS: methylPREDNISolone 125MG 2ML VIAL IV SCH ×3 (00:27→16:48)
[2020-12-17] MEDS: ALBUTEROL SULFATE 2.5 MG/0.5 ML INH NEB SOLN NEB SCH ×6 (03:03→23:41)
[2020-12-17] MEDS: AMIODARONE HCL 360 MG in IV 1 EA IV SCH (03:52)
[2020-12-17] MEDS: PIPERACILLIN/TAZOBACTAM SOD 4.5 GM in D5W MINI-BAG PLUS 50 ML IV SCH ×3 (05:29→21:39)
[2020-12-17] MEDS: HEPARIN SOD (PORCINE) 5000UNITS/ML 1ML VIAL/SYRINGE SQ SCH ×3 (05:29→21:39)
[2020-12-17 05:34] LABS: ABG BASE EXCESS -1.8 (-2.0-2.0); ABG HCO3 22.6 MEQ/L (22.0-26.0); ABG PARTIAL PRESSURE CO2 36.8 mmHg (35.0-45.0); ABG PARTIAL PRESSURE O2 92.1 mmHg (75.0-100.0); ABG STANDARD HCO3 22.9 MEQ/L (22.0-26.0); ABG TOTAL CO2 23.7 MEQ/L (23.0-31.0); ABG pH (ARTERIAL) 7.406 UNITS (7.350-7.450)
[2020-12-17 05:50] LABS: HEMATOCRIT 25.6 % (36.0-47.0); HEMOGLOBIN 8.2 g/dl (12.0-15.5); MEAN CORPUSCULAR HEMOGLOBIN 27.4 pg (27.0-33.0); MEAN CORPUSCULAR VOLUME 85.6 fl (80.0-96.0); PLATELET COUNT, AUTOMATED 192 10^3/uL (150-450); RED BLOOD COUNT 2.99 10^6/uL (4.00-5.40); WHITE BLOOD COUNT 23.8 10^3/uL (4.0-10.0)
[2020-12-17 06:28] LABS: ALBUMIN 1.7 GM/DL (3.2-5.2); BILIRUBIN,TOTAL 0.9 MG/DL (0.2-1.0); CALCIUM LEVEL 8.6 MG/DL (8.8-10.2); CREATININE FOR GFR 1.32 MG/DL (0.55-1.30); GLOMERULAR FILTRATION RATE 43.6 (>45); MAGNESIUM LEVEL 2.3 MG/DL (1.8-2.4); POTASSIUM SERUM 4.6 MEQ/L (3.5-5.1); TOTAL PROTEIN 5.3 GM/DL (6.4-8.2); VANCOMYCIN RANDOM 22.7 UG/ML
[2020-12-17] MEDS: MIDAZOLAM HCL 100 MG in D5W 80 ML IV SCH ×2 (06:47→16:49)
[2020-12-17] MEDS: fentaNYL CITRATE 1,000 MCG in NS 80 ML IV SCH (06:48)
[2020-12-17] MEDS ORDERED: CALCIUM GLUCONATE 1,000 MG in NS 100 ML IV ONE ×2 (08:00→17:15)
--- NOTE | 2020-12-17 08:06 | REP ---
INDICATION: RESPIRATORY FAILURE. COMPARISON: Comparison chest x-ray December 16, 2020. TECHNIQUE: Portable upright AP chest radiograph. FINDINGS: Bilateral apical chest tubes remain in place. There is no evidence of pneumothorax. Endotracheal tube is again seen in good position at the level of the transverse aorta. NG tube enters the left upper quadrant of the abdomen. Monitoring electrodes are seen. Bilateral internal jugular central venous catheters are again noted unchanged in position. Extensive pulmonary parenchymal infiltrates persist bilaterally throughout the lung diop, most pronounced in the upper lobes. Opacifications appears to be slightly more confluent or opaque in the left upper lobe when compared with radiographs from December 14, 2020. No new consolidation is seen. IMPRESSION: Extensive bilateral infiltrates persist. Question increased parenchymal opacity on the left compared to radiographs done 2-3 days ago.. <Electronically signed by Terence Tran > 12/17/20 0802
[2020-12-17] MEDS: ASPIRIN 300 MG SUPP PR SCH (08:31)
[2020-12-17] MEDS: CHLORHEXIDINE GLUCONATE 0.12 % 15ML UDC (PERIDEX ORAL RINSE) MT SCH ×2 (08:46→20:51)
[2020-12-17] MEDS: PANTOPRAZOLE 40MG VIAL (C9113 PER 1) IV SCH (08:46)
[2020-12-17] MEDS: CLOPIDOGREL 75 MG TAB NG SCH (08:47)
[2020-12-17] MEDS: LACRILUBE (AKWA TEARS) OPHTH OINT 3.5 GM OU SCH ×3 (08:47→20:53)
[2020-12-17 10:01] LABS: C REACTIVE PROTEIN QUANTITATIV 11.3 MG/DL (0.00-0.30)
[2020-12-17] MEDS: VANCOMYCIN HCL 500 MG in D5W MINI-BAG PLUS 100 ML IV SCH ×2 (10:12→20:52)
[2020-12-17] MEDS: MICAFUNGIN SODIUM 100 MG in D5W MINI-BAG PLUS 100 ML IV SCH (11:38)
--- NOTE | 2020-12-17 11:53 | CCN ---
CRITICAL CARE NOTE DATE: 12/17/2020 SUBJECTIVE: The patient was seen and examined this morning during bedside rounds. The patient has remained on CRRT and has been able to have consistent fluid removal of approximately 50 mL/hour. She does continue to require Levophed at a slightly higher dose this morning at 5 mcg/minute to maintain her mean arterial pressure (MAP) above 65. She has not had any sustained episodes of atrial fibrillation in rapid ventricular response since yesterday after being started on the IV amiodarone loading. She does appear to be more synchronous on the ventilator with the additional Fentanyl drip to her Versed drip that she is on already for sedation. OBJECTIVE: VITAL SIGNS: Temperature 97.5, pulse 65, respirations 21, blood pressure 96/55, O2 sat 96% on 70% to 65% FiO2. INTAKE AND OUTPUT: In 2.0, out 2.7. GENERAL: The patient is intubated and sedated on mechanical ventilation. She appears to withdraw to painful stimuli, but is not responding to voice or following commands. HEENT: Normocephalic, atraumatic. Pupils reactive to light bilaterally. Moist mucous membranes noted. NECK: Supple. Trachea is midline. There is a hemodialysis catheter on the right internal jugular vein and a triple lumen catheter in the left IJ. CARDIAC: Regular rate and rhythm. Normal S1, S2. Unable to clearly auscultate any murmurs. PULMONARY: Coarse ventilator breath sounds bilaterally with no significant wheezing or rhonchi. There are some more diminished breath sounds on the left side today. ABDOMEN: Obese, soft, nontender, and nondistended. There are bowel sounds present. EXTREMITIES: There is mild edema in the upper extremities bilaterally and improvement in the lower extremity trace edema. LABORATORY DATA: WBC 23.8, hemoglobin 8.2, platelets 192,000. Chemistries with sodium 135, potassium 4.6., chloride 100, bicarb 28, BUN 26, creatinine 1.32, glucose 158, albumin 1.7. ABG with pH of 7.406, pCO2 of 36.8, pO2 of 92.1. IMAGING: Chest x-ray shows bilateral chest tubes in place. There are diffuse fluffy opacities bilaterally more prominent in the upper lobes and there appears to be increasing dense opacification in the left upper lobe compared to prior chest x-rays. There is an ET tube and OG tube in place. There is a right IJ hemodialysis catheter and a left IJ triple lumen catheter. ASSESSMENT AND PLAN: Ms. Ritchie is a 60-year-old female with a past medical history of rheumatoid arthritis, chronic obstructive pulmonary disease (COPD), depression, and obesity who presented initially at an outside hospital with acute hypoxemic respiratory failure likely secondary to pneumonia and chronic obstructive pulmonary disease (COPD) exacerbation. The patient was intubated and then transferred to [facility] for further care. Upon arrival, she was found to be severely hypoxemic with diffuse subcutaneous emphysema and bilateral pneumothoraces requiring emergent placement of bilateral chest tubes with subsequent improvement. The patient's hospital course was subsequently complicated with episodes of atrial fibrillation with rapid ventricular response (RVR), as well as cardiac demand ischemia and acute renal failure requiring continuous renal replacement therapy (CRRT). 1. Neurologic: The patient is intubated and sedated. She was started on Fentanyl drip as she was still having issues with vent dyssynchrony while on her Versed drip and receiving p.r.n. Versed. When she is dyssynchrony with the ventilator and agitated, she does have significant desaturation and hypoxia. We had trialed Precedex, which she was unable to tolerate as she was noted to have bradycardia. - Will continue with the Versed drip with the Fentanyl drip for analgesia and will continue to wean down sedation as tolerated. 2. Cardiac: Patient with demand ischemia likely secondary to her septic shock and severe hypoxemic respiratory failure. She also had episodes of atrial fibrillation with rapid ventricular response. - The patient did convert to sinus rhythm after being given the amiodarone IV loading dose. With her hypotension and Levophed requirements, will continue to hold beta-edward at this time. - The patient will be completing the IV amiodarone so will change her to her p.o. Amiodarone. - Will continue Levophed as needed to maintain a MAP above 65. She did require some increasing amount of Levophed this morning, but we have been doing more fluid removal with continuous renal replacement therapy (CRRT). - Will continue aspirin and Plavix. 3. Pulmonary: History of chronic obstructive pulmonary disease (COPD) and patient presented with acute ischemic hypoxemic respiratory failure likely secondary to pneumonia and COPD exacerbation. She was intubated at an outside hospital and had complications of bilateral pneumothoraces and severe subcutaneous emphysema. She did have bilateral chest tube placed emergently upon presentation to [facility] with resolution of the pneumothoraces and subcutaneous emphysema. The patient also with acute respiratory distress syndrome (ARDS) now in the setting of her pneumonia. She has been on broad-spectrum antibiotics with vancomycin and Zosyn, but is noted to have increasing leukocytosis. Her fungal blood cultures are still pending and a sputum culture did grow yeast. - The patient was hypothermic as well and with increasing leukocytosis. There is concern for perhaps a fungal infection. Will start her on micafungin and continue with the broad-spectrum antibiotics. - Will continue the patient on mechanical ventilation with volume control settings. She did have episodes of desaturation yesterday with her vent dyssynchrony and had required increasing FiO2. We were able to wean her down slightly with improved sedation. As her pneumothoraces have been resolved and her chest tubes are still in place with minimal air leak, will attempt to increase her positive end-expiratory pressure (PEEP) slightly. She does have worsening consolidation particularly in the left upper lobe. - The patient will now be on vent settings of 440/20/65 and 7. - Will continue with daily ABGs while the patient is intubated. - Will continue Solu-Medrol, but will continue weaning down to 60 mg q. 8 hours. - Will continue vent bundle care with head of bed elevation and chlorhexidine mouthwash. 4. Renal: Patient with acute renal failure in the setting of her septic shock/ARDs and recent contrast exposure at an outside hospital. She has been on continuous renal replacement therapy (CRRT) due to her hemodynamic instability and septic shock initially. She does continue to require low dose pressors to maintain fluid removal on CRRT. - Appreciate renal consult and recommendations. Will continue with CRRT as per nephrology with removal of fluid as tolerated. 5. Gastrointestinal (GI): The patient has been tolerating tube feeds, which were increased slightly to 20 mL/hour. She has some mild residuals, but not significant. Will continue with tube feeds, Beneprotein, and monitor residuals. She does have protein-calorie malnutrition and anemia, although her albumin did improve slightly today. - Continue with Protonix for GI prophylaxis. 6. Hematologic: Patient with anemia likely multifactorial in the setting of her acute illness, as well as requiring blood draws and perhaps initial dilutional component from fluid overload. She did receive one unit of packed red blood cells (PRBC) during her hospital so far with appropriate response. Will continue monitoring and transfuse as needed. There does not appear to be active bleeding currently. Deep vein thrombosis (DVT) prophylaxis with heparin. Code status: FULL CODE. TOTAL CRITICAL CARE TIME: Not including procedures approximately 45 minutes. MTDD
--- NOTE | 2020-12-17 12:05 | CCN ---
NEPHROLOGY CRITICAL CARE NOTE DATE: 12/17/2020 SUBJECTIVE: Mrs. Ritchie is seen this morning at her bedside. She remains unresponsive on the ventilator and oliguric on CRRT. Nursing staff reports that she did have episodes of atrial fibrillation through the night, however rate has been well controlled and she remains on Amiodarone. She did not tolerate tube feeding which has been now stopped. We just checked her CVP and it is 16. She has required Levophed throughout the night due to persistent hypertension. Her right chest tube is not draining much and left chest tube drainage is also decreased. OBJECTIVE: PHYSICAL EXAMINATION: VITAL SIGNS: Temperature 97.5 degrees Fahrenheit, heart rate 65 per minute, respiratory rate 20 per minute, blood pressure 96/55 mm of mercury and oxygen saturation 96% on the ventilator with 80% oxygen. HEENT: Her head is atraumatic. Endotracheal and orogastric tubes are in place. NECK: Hemodialysis catheter in right internal jugular vein present. HEART: Regular and without a pericardial friction rub. LUNGS: Bilateral air entry. She has bilateral chest tubes in place. ABDOMEN: Soft and bowel sounds are hypoactive. EXTREMITIES: Without any cyanosis or clubbing. I do not see any significant pitting edema on her legs though her right arm does have edema. NEUROLOGICAL: She remains sedated and unresponsive. LABORATORY STUDIES: Today's labs show a white blood cell count of 23.8, hemoglobin 8.2 and hematocrit 25.6, platelet count 192. Sodium 135, potassium 4.6, CO2 28, BUN 26 and creatinine 1.32, calcium 8.6. AST 81, ALT 64 and lactate dehydrogenase is 514. C-reactive protein 11.3. PROBLEMS: 1. Septic shock - The patient remains on pressors and antibiotics. Blood pressure is still marginal. 2. Oliguric acute renal failure her acute renal failure is related to shock. She is still oliguric and dialysis dependent. CRRT is in progress at her bedside and her CRRT orders are being renewed. 3. Anemia Since transfusion a couple of days ago, her anemia has been essentially unchanged. No urgent need for transfusion at this point. 4. Bilateral pleural effusions - right chest tube is draining nothing and left chest tube is draining a small amount of fluid. It remains to be seen what Dr. Banegas decides about removal of chest tubes. Twenty-seven minutes of critical care time. No procedures performed.
[2020-12-17 16:17] LABS: HEMATOCRIT 24.4 % (36.0-47.0); HEMOGLOBIN 7.8 g/dl (12.0-15.5); MEAN CORPUSCULAR HEMOGLOBIN 27.4 pg (27.0-33.0); MEAN CORPUSCULAR VOLUME 85.6 fl (80.0-96.0); PLATELET COUNT, AUTOMATED 190 10^3/uL (150-450); RED BLOOD COUNT 2.85 10^6/uL (4.00-5.40); WHITE BLOOD COUNT 27.8 10^3/uL (4.0-10.0)
[2020-12-17 16:28] LABS: CALCIUM LEVEL 7.9 MG/DL (8.8-10.2); CREATININE FOR GFR 1.22 MG/DL (0.55-1.30); GLOMERULAR FILTRATION RATE 47.7 (>45); MAGNESIUM LEVEL 2.2 MG/DL (1.8-2.4); PHOSPHORUS LEVEL 2.4 MG/DL (2.5-4.9); POTASSIUM SERUM 4.8 MEQ/L (3.5-5.1)
[2020-12-17] MEDS: AMIODARONE 200 MG TAB (PACERONE) PO SCH ×2 (17:21→21:00)
[2020-12-17] MEDS ORDERED: POTASSIUM PHOSPHATE INJ 15 MMOL in D5W 250 ML IV ONE (18:30)
[2020-12-17] MEDS: NOREPINEPHRINE BITARTRATE 8 MG in D5W 492 ML IV SCH (20:53)
[2020-12-18] VITALS (100 sets, daily range): BP systolic 73–140; BP diastolic 37–69
[2020-12-18] MEDS: methylPREDNISolone 125MG 2ML VIAL IV SCH ×3 (01:22→16:21)
[2020-12-18] MEDS: ALBUTEROL SULFATE 2.5 MG/0.5 ML INH NEB SOLN NEB SCH ×5 (03:00→19:45)
[2020-12-18] MEDS: fentaNYL CITRATE 1,000 MCG in NS 80 ML IV SCH (04:20)
[2020-12-18 04:51] LABS: HEMATOCRIT 22.7 % (36.0-47.0); HEMOGLOBIN 7.1 g/dl (12.0-15.5); MEAN CORPUSCULAR HGB CONC 31.3 g/dl (32.0-36.5); MEAN CORPUSCULAR VOLUME 86.3 fl (80.0-96.0); PLATELET COUNT, AUTOMATED 161 10^3/uL (150-450); RED BLOOD COUNT 2.63 10^6/uL (4.00-5.40); WHITE BLOOD COUNT 22.5 10^3/uL (4.0-10.0)
[2020-12-18 05:08] LABS: BILIRUBIN,TOTAL 0.8 MG/DL (0.2-1.0); CALCIUM LEVEL 8.5 MG/DL (8.8-10.2); CREATININE FOR GFR 1.22 MG/DL (0.55-1.30); GLOMERULAR FILTRATION RATE 47.7 (>45); POTASSIUM SERUM 4.7 MEQ/L (3.5-5.1)
[2020-12-18 05:09] LABS: ALBUMIN 1.6 GM/DL (3.2-5.2); MAGNESIUM LEVEL 2.2 MG/DL (1.8-2.4); TOTAL PROTEIN 5.3 GM/DL (6.4-8.2)
[2020-12-18] MEDS: MIDAZOLAM HCL 100 MG in D5W 80 ML IV SCH ×3 (05:14→15:49)
[2020-12-18] MEDS: HEPARIN SOD (PORCINE) 5000UNITS/ML 1ML VIAL/SYRINGE SQ SCH ×3 (05:45→21:25)
[2020-12-18] MEDS: PIPERACILLIN/TAZOBACTAM SOD 4.5 GM in D5W MINI-BAG PLUS 50 ML IV SCH ×3 (05:45→21:25)
[2020-12-18] MEDS ORDERED: CALCIUM GLUCONATE 1,000 MG, VIAL MATE ADAPTER 1 EACH in NS 100 ML IV ONE (06:00)
[2020-12-18 06:23] LABS: ABG BASE EXCESS 0.5 (-2.0-2.0); ABG HCO3 24.7 MEQ/L (22.0-26.0); ABG O2 SATURATION 93.8 % (95.0-99.0); ABG PARTIAL PRESSURE CO2 37.6 mmHg (35.0-45.0); ABG PARTIAL PRESSURE O2 70.9 mmHg (75.0-100.0); ABG STANDARD HCO3 24.9 MEQ/L (22.0-26.0); ABG TOTAL CO2 25.8 MEQ/L (23.0-31.0); ABG pH (ARTERIAL) 7.435 UNITS (7.350-7.450)
--- NOTE | 2020-12-18 08:03 | REP ---
INDICATION: RESPIRATORY FAILURE COMPARISON: 12/17/2020, 12/16/2020 TECHNIQUE: Portable AP view of the chest FINDINGS: Bilateral chest tubes in stable position without obvious effusion or pneumothorax. Endotracheal tube 3 cm above the nicky. Nasogastric tube extends just beyond the level of the diaphragm and may warrant advancement. Right IJ line with tip in the SVC. Left IJ line with tip in the brachiocephalic vein/SVC confluence. The mediastinum and cardiac silhouette are stable and within normal limits. The lung diop demonstrate diffuse stable infiltrates essentially unchanged. No new acute process identified. IMPRESSION: 1. No significant change from prior examination. 2. Consider advancing nasogastric tube. 3. Diffuse bilateral infiltrates unchanged from prior examination. No obvious new acute process identified. <Electronically signed by Alber Boudreaux > 12/18/20 0800
[2020-12-18] MEDS: LACRILUBE (AKWA TEARS) OPHTH OINT 3.5 GM OU SCH ×3 (08:26→20:09)
[2020-12-18] MEDS: CLOPIDOGREL 75 MG TAB NG SCH (08:26)
[2020-12-18] MEDS: CHLORHEXIDINE GLUCONATE 0.12 % 15ML UDC (PERIDEX ORAL RINSE) MT SCH ×2 (08:26→20:09)
[2020-12-18] MEDS: PANTOPRAZOLE 40MG VIAL (C9113 PER 1) IV SCH (08:27)
[2020-12-18] MEDS: ASPIRIN 300 MG SUPP PR SCH (08:27)
[2020-12-18] MEDS: VANCOMYCIN HCL 500 MG in D5W MINI-BAG PLUS 100 ML IV SCH ×2 (08:27→20:09)
[2020-12-18] MEDS: AMIODARONE 200 MG TAB (PACERONE) PO SCH ×3 (08:45→20:31)
--- NOTE | 2020-12-18 10:51 | CCN ---
CRITICAL CARE NOTE DATE: 12/18/2020 SUBJECTIVE: Mrs. Ritchie is seen this morning at her bedside. She remains anuric and requiring CRRT. She is still on Levophed but her oxygen requirement has improved since yesterday. She is now on 50% FIO2. Her CVP check this morning is down to about 10. She remains sedated and is receiving some tube feedings. OBJECTIVE: VITAL SIGNS: Temperature is 97.7 degrees Fahrenheit, heart rate is 62 per minute and respiratory rate is 23 per minute. Blood pressure is 96/55 mmHg and oxygen saturation is 94% on 50% FIO2. HEAD AND NECK: Her head is atraumatic. Neck is supple and JVD is difficult to be assessed. She has a right internal jugular vein hemodialysis catheter in place. Endotracheal and orogastric tubes are in place. HEART: Heart sounds are regular. LUNGS: Good bilateral air entry. CHEST: Her chest tubes are in place bilaterally. ABDOMEN: Soft, bowel sounds are positive. EXTREMITIES: Without any cyanosis or clubbing. NEUROLOGIC: She remains sedated and unresponsive. LABORATORY DATA: Today's labs shows a WBC of 22.5, hemoglobin 7.1 and hematocrit 22.7. Platelets are 161,000. Sodium 135, potassium 4.7, CO2 27, BUN 29, creatinine 1.22, glucose 137, calcium 8.5. Total protein 5.3 and albumin 1.6. PROBLEMS: 1. Oliguric acute renal failure. Patient remains on CRRT. Will continue with the same and orders are being renewed for the next 24 hours. 2. Respiratory failure with hypoxemia. Her volume status is gradually improving. She is now down to 50% FIO2. Will continue our efforts to remove fluid 50 ml/hr as long as possible even though she is on low dose Levophed. 3. Anemia. No active bleeding noticed, however she does have a drop in her hemoglobin to 7.1. I would recommend 2 units of packed RBCs to be transfused today. 4. Septic shock. Patient remains antibiotics and Levophed. Twenty-four minutes of Critical Care time spent. No procedures were done.
[2020-12-18] MEDS: MICAFUNGIN SODIUM 100 MG in D5W MINI-BAG PLUS 100 ML IV SCH (11:03)
--- NOTE | 2020-12-18 13:30 | CCN ---
CRITICAL CARE NOTE DATE: 12/18/2020 SUBJECTIVE: Patient was seen and examined this morning during bedside rounds. Overnight the patient had done well with continuous renal replacement therapy (CRRT) and tolerating fluid removal. She was down to only 1 mcg a minute of Levophed this morning. She has not had any further episodes of atrial fibrillation with rapid ventricular response and in fact has been more on the bradycardic side. Her by mouth Amiodarone yesterday was held given some of these episodes of bradycardia. The patient also has been tolerating her tube feeds with only minimal residuals this morning. She has also remained afebrile and is more normothermic. OBJECTIVE: Vital signs: Temperature 97.2, pulse 61, respirations 22, blood pressure 106/55, O2 saturation 91-93% on 50% FiO2. Input: 2.8 liters. Output: 2.9. Net negative 1 liter. General: The patient is intubated and sedated on mechanical ventilation. She appears to withdraw to painful stimuli but is not opening her eyes spontaneously or responding to voice. HEENT: Normocephalic, atraumatic. Pupils reactive to light bilaterally. Moist mucous membranes noted. NECK: Supple. Trachea is midline. There is a hemodialysis catheter on the right internal jugular vein and a triple lumen catheter in the left IJ. CARDIAC: Regular rate and rhythm. Normal S1, S2. Unable to clearly auscultate any murmurs. PULMONARY: Somewhat improved breath sounds bilaterally with more diminished breath sounds at the bases but no significant wheezing or rhonchi. ABDOMEN: Obese, soft, nontender, and nondistended. There are some bowel sounds present. EXTREMITIES: There is improvement in the upper extremity edema bilaterally with no significant lower extremity edema today. LABS: WBC 22.5, hemoglobin 7.1, platelets 161. Chemistry: Sodium is 135, potassium is 4.7, chloride is 102, bicarb 27, BUN 29, creatinine 1.22, glucose 137, calcium 8.5, phosphorus 2.0, magnesium 2.2. ABG: A pH of 7.435, pCO2 of 37.6, pO2 of 70.9. IMAGING: Chest x-ray shows bilateral chest tubes in place. There appears to be some slight improvement in the diffuse fluffy opacities bilaterally, in particular the more dense opacification in the left upper lobe appears slightly improved today. There is an ET tube in place. The OG tube appears somewhat high today with the tip only just below the JE junction. There is a right IJ hemodialysis catheter and a left IJ triple lumen catheter unchanged. ASSESSMENT AND PLAN: Ms. Ritchie is a 60-year-old female with a past medical history of rheumatoid arthritis, chronic obstructive pulmonary disease (COPD), depression, and obesity who presented initially at an outside hospital with acute hypoxemic respiratory failure likely secondary to pneumonia and (COPD) exacerbation. The patient was intubated and then transferred to [facility] ICU where she was found on presentation to be severely hypoxemic with evidence of diffuse subcutaneous emphysema and bilateral pneumothoraces. The patient required emergent placement of chest tubes bilaterally with subsequent improvement. Her hospital course was further complicated with acute renal failure requiring CRRT as well as episode of atrial fibrillation with rapid ventricular response (RVR) and demand ischemia. 1. The patient is intubated and sedated. She is on a Versed drip as well as a Fentanyl drip for analgesia, and she does appear to be more comfortable and synchronous on the ventilator. Would attempt to wean down the Versed drip slowly as tolerated as with improvement in her oxygenation, we will likely attempt a sedation vacation tomorrow for a weaning trial if tolerated. 2. Cardiac: Patient with demand ischemia likely secondary to her septic shock and severe hypoxemic respiratory failure. Her troponins have trended down. She also had episodes of atrial fibrillation with rapid ventricular response but appears to be in sinus rhythm after receiving the IV Amiodarone loading. The patient also with hypotension and required Levophed initially for her septic shock. Her pressor requirements have improved and this morning was down to only 1 mcg per minute of the Levophed. We will continue weaning Levophed as tolerated to maintain a mean arterial pressure (MAP) above 65. She will be getting a transfusion of packed red blood cells (PRBC) which will likely help with further weaning. The patient will continue with the by mouth Amiodarone. We will continue Aspirin and Plavix. Appreciate prior Cardiology recommendations. 3. Pulmonary: Patient presented with acute hypoxemic respiratory failure likely secondary to pneumonia and COPD exacerbation. She was intubated at an outside facility with complication of bilateral pneumothoraces and severe subcutaneous emphysema. Upon arrival to [facility] she did have placement of bilateral chest tubes with resolution of the pneumothoraces and the subcutaneous emphysema. The patient also with acute respiratory distress syndrome (ARDS) in the setting of her pneumonia. The patient has been on broad-spectrum antibiotics with vancomycin and Zosyn. Yesterday she was noted to have increasing leukocytosis and was started on Micafungin for concern for possible fungal pneumonia as she was immunosuppressed as an outpatient with her rheumatoid medication and had also been on very high doses of steroids during her admission here. The patient's leukocytosis appears to be improving. We will continue with the micafungin as well as the Vancomycin and Zosyn for now. We will follow up results of her fungal blood cultures. We will continue the patient on mechanical ventilation with volume control settings and continue to wean down her FiO2 as tolerated. She was up to a PEEP of 7 but was weaned down this morning to a PEEP of 5 and appears to be maintaining her O2 saturations. She is currently on setting of 440/20/50 and 5 and we will continue to wean down FiO2 slowly. We will continue bilateral chest tubes to wall suction at this time. She does not have any evidence of pneumothoraces, however given the severity of her initial presentation and while on the mechanical ventilator, we will continue chest tubes for now and will likely remove the chest tubes if she is able to be extubated. We will continue the patient with daily ABGs and chest x-rays while intubated. We will continue with vent bundle care with head of bed elevation and chlorhexidine mouthwash. We will continue with Solu-Medrol, was weaned down yesterday to 60 mg every 8 hours. Will likely continue weaning Solu-Medrol slowly. 4. Renal: Patient with acute renal failure in the setting of her septic shock and acute respiratory distress syndrome (ARDS) and contrast exposure at the outside hospital. She is been on CRRT due to her initial hemodynamic instability and septic shock. Appreciate renal consult and recommendations. We will continue CRRT with fluid removal as she has had improvement in her blood pressure and her pressor requirements. She does have improvement in her oxygenation as well with further fluid removal. 5. Gastrointestinal (GI): The patient has been tolerating tube feeds so we will increase her tube feed rate to 30 mL an hour and continue with Beneprotein for her hyperalbuminemia and protein calorie malnutrition. We will continue with Protonix for GI prophylaxis. The patient's OG tube was readjusted as it had come out slightly this morning. 6. Heme: The patient with anemia likely multifactorial in the setting of her acute illness as well as frequent blood draws and with her renal failure and on CRRT. Her hemoglobin has trended down slowly again today. She does not appear to have active bleeding but we will transfuse her an additional 2 units of PRBC. DVT prophylaxis with Heparin subcutaneously. Code status: FULL CODE. The patient's has been updated daily as to her condition and prognosis. Her sons have also visited her now over the weekend and there is plan for a family meeting tomorrow afternoon to discuss further goals of care. Total critical care time spent not including procedures approximately 45 minutes. LEFTY
[2020-12-18] MEDS ORDERED: SODIUM CHLORIDE 0.9% INJ 10 ML SYR IV PRN (13:35)
[2020-12-18 16:28] LABS: HEMATOCRIT 30.4 % (36.0-47.0); MEAN CORPUSCULAR HGB CONC 32.6 g/dl (32.0-36.5); MEAN CORPUSCULAR VOLUME 86.1 fl (80.0-96.0); PLATELET COUNT, AUTOMATED 148 10^3/uL (150-450); RED BLOOD COUNT 3.53 10^6/uL (4.00-5.40); WHITE BLOOD COUNT 24.4 10^3/uL (4.0-10.0)
[2020-12-18 16:33] LABS: HEMOGLOBIN 9.9 g/dl (12.0-15.5)
[2020-12-18 16:49] LABS: CALCIUM LEVEL 8.4 MG/DL (8.8-10.2); CREATININE FOR GFR 1.11 MG/DL (0.55-1.30); GLOMERULAR FILTRATION RATE 53.2 (>45); MAGNESIUM LEVEL 2.4 MG/DL (1.8-2.4); PHOSPHORUS LEVEL 2.6 MG/DL (2.5-4.9); POTASSIUM SERUM 4.6 MEQ/L (3.5-5.1)
[2020-12-18 16:55] LABS: ANISOCYTOSIS 2+; LYMPHOCYTES 6 % (16-44); MONOCYTES 1 % (0-5); NEUTROPHILS 80 % (28-66); PLATELET ESTIMATE NORMAL (NORMAL)
[2020-12-18 16:56] LABS: HYPOCHROMASIA 1+; PLATELET CLUMPS SMALL AMT
[2020-12-18] MEDS: NOREPINEPHRINE BITARTRATE 8 MG in D5W 492 ML IV SCH (20:15)
[2020-12-19] VITALS (91 sets, daily range): BP systolic 82–218; BP diastolic 46–120
[2020-12-19] MEDS: methylPREDNISolone 125MG 2ML VIAL IV SCH ×2 (00:14→08:29)
[2020-12-19] MEDS: ALBUTEROL SULFATE 2.5 MG/0.5 ML INH NEB SOLN NEB SCH ×6 (00:31→19:46)
[2020-12-19] MEDS: fentaNYL CITRATE 1,000 MCG in NS 80 ML IV SCH ×2 (01:19→20:55)
[2020-12-19] MEDS: MIDAZOLAM HCL 100 MG in D5W 80 ML IV SCH (02:33)
[2020-12-19 03:33] LABS: HEMATOCRIT 29.8 % (36.0-47.0); HEMOGLOBIN 9.8 g/dl (12.0-15.5); MEAN CORPUSCULAR HEMOGLOBIN 28.3 pg (27.0-33.0); MEAN CORPUSCULAR HGB CONC 32.9 g/dl (32.0-36.5); MEAN CORPUSCULAR VOLUME 86.1 fl (80.0-96.0); PLATELET COUNT, AUTOMATED 151 10^3/uL (150-450); RED BLOOD COUNT 3.46 10^6/uL (4.00-5.40); WHITE BLOOD COUNT 23.6 10^3/uL (4.0-10.0)
[2020-12-19] MEDS ORDERED: CALCIUM GLUCONATE 1,000 MG, VIAL MATE ADAPTER 1 EACH in NS 100 ML IV ONE (03:50)
[2020-12-19 04:15] LABS: ALBUMIN 1.7 GM/DL (3.2-5.2); BILIRUBIN,TOTAL 1.1 MG/DL (0.2-1.0); CALCIUM LEVEL 7.8 MG/DL (8.8-10.2); CREATININE FOR GFR 1.17 MG/DL (0.55-1.30); GLOMERULAR FILTRATION RATE 50.1 (>45); MAGNESIUM LEVEL 2.3 MG/DL (1.8-2.4); PHOSPHORUS LEVEL 2.5 MG/DL (2.5-4.9); POTASSIUM SERUM 4.8 MEQ/L (3.5-5.1); TOTAL PROTEIN 5.3 GM/DL (6.4-8.2)
[2020-12-19] MEDS: PIPERACILLIN/TAZOBACTAM SOD 4.5 GM in D5W MINI-BAG PLUS 50 ML IV SCH ×3 (05:25→21:08)
[2020-12-19] MEDS: HEPARIN SOD (PORCINE) 5000UNITS/ML 1ML VIAL/SYRINGE SQ SCH ×3 (05:25→21:08)
[2020-12-19 05:45] LABS: ABG HCO3 24.1 MEQ/L (22.0-26.0); ABG O2 SATURATION 95.1 % (95.0-99.0); ABG PARTIAL PRESSURE CO2 37.2 mmHg (35.0-45.0); ABG PARTIAL PRESSURE O2 74.3 mmHg (75.0-100.0); ABG STANDARD HCO3 24.5 MEQ/L (22.0-26.0); ABG TOTAL CO2 25.3 MEQ/L (23.0-31.0)
--- NOTE | 2020-12-19 08:13 | REP ---
INDICATION: RESPIRATORY FAILURE COMPARISON: 12/19/2019 TECHNIQUE: Portable AP view of the chest FINDINGS: Endotracheal tube 3 cm above the nicky. Nasogastric tube courses below left hemidiaphragm. Bilateral chest tubes in stable position. Right IJ line with tip in the SVC. Left IJ line with tip in the brachiocephalic/SVC. Mediastinum and cardiac silhouette are relatively stable. Increased diffuse bilateral interstitial and alveolar infiltrates are suggested. No obvious effusion. No obvious pneumothorax. IMPRESSION: Increased diffuse bilateral opacities/airspace disease. <Electronically signed by Alber Boudreaux > 12/19/20 [id number]
[2020-12-19] MEDS: ASPIRIN 300 MG SUPP PR SCH (08:28)
[2020-12-19] MEDS: CHLORHEXIDINE GLUCONATE 0.12 % 15ML UDC (PERIDEX ORAL RINSE) MT SCH ×2 (08:28→20:53)
[2020-12-19] MEDS: LACRILUBE (AKWA TEARS) OPHTH OINT 3.5 GM OU SCH ×3 (08:28→20:53)
[2020-12-19] MEDS: CLOPIDOGREL 75 MG TAB NG SCH (08:28)
[2020-12-19] MEDS: PANTOPRAZOLE 40MG VIAL (C9113 PER 1) IV SCH (08:28)
[2020-12-19] MEDS: AMIODARONE 200 MG TAB (PACERONE) PO SCH ×3 (08:29→20:53)
[2020-12-19] MEDS ORDERED: SODIUM CHLORIDE 0.9% INJ 10 ML SYR IV PRN (08:30)
[2020-12-19] MEDS: VANCOMYCIN HCL 500 MG in D5W MINI-BAG PLUS 100 ML IV SCH (09:02)
[2020-12-19] MEDS: MIDAZOLAM INJ 2MG/2ML VIAL (J2250 PER 1MG) IV PRN ×6 (10:26→21:20)
[2020-12-19] MEDS ORDERED: PROPOFOL 1,000 MG/100 ML VIAL As Ordered ONE (10:41)
[2020-12-19] MEDS: propofoL 1,000 MG in IV 1 EA IV SCH ×2 (10:53→23:48)
[2020-12-19] MEDS: MICAFUNGIN SODIUM 100 MG in D5W MINI-BAG PLUS 100 ML IV SCH (11:00)
--- NOTE | 2020-12-19 12:35 | CCN ---
CRITICAL CARE NOTE DATE: 12/19/2021 SUBJECTIVE: The patient was seen and examined this morning during bedside rounds. Yesterday, the patient had continued to do well with fluid removal with CRRT. She had only required minimum amounts of Levophed and at times had been off of Levophed entirely and maintaining a MAP above 65. This morning, she is on only 1 mcg/min of Levophed. Overnight, she did have hypothermia again and did require placement of the Becky Hugger. She did have some episodes of bradycardia at times, but did not appear to be hemodynamically significant. The patient was weaned down on Versed requirements and this morning, her Versed was on hold. She did open her eyes to voice, but does not appear to be following commands or tracking appropriately. OBJECTIVE: VITAL SIGNS: Temperature 96.3, pulse 59, respirations 21, blood pressure 84/51, O2 saturation 92% on 45% FiO2. INTAKE AND OUTPUT: In 2.9 liters, out 3.5, net negative approximately 900 mL. GENERAL: The patient is intubated and sedated on mechanical ventilation. She does open her eyes to voice, but is not tracking and not responding to commands appropriately. HEENT: Normocephalic, atraumatic. Pupils are reactive to light bilaterally. Moist mucous membranes noted. NECK: Supple. Trachea is midline. There is a hemodialysis catheter in the right IJ and a triple lumen catheter in the left IJ. CARDIAC: Regular rate and rhythm. Normal S1, S2. Unable to clearly appreciate murmur. PULMONARY: Coarse ventilator breath sounds bilaterally with more diminished breath sounds at the bases, but no significant wheezing or rhonchi. ABDOMEN: Obese, soft, nontender, and nondistended. There are bowel sounds present. EXTREMITIES: There is no significant upper extremity edema bilaterally and no significant lower extremity edema noted bilaterally. LABORATORY DATA: WBC 23.6, hemoglobin 9.8, platelets 151,000. Chemistries with sodium of 136, potassium 4.8, chloride 103, bicarb 29, BUN 34, creatinine 1.17, glucose 160, calcium 7.8, total bilirubin 1.1, AST and ALT 67 and 55, alkaline phosphatase 149, albumin 1.7, procalcitonin on 12/17 was 1.40. ABG with pH of 7.430, pO2 of 37.2, pO2 of 74.3. IMAGING: Chest x-ray this morning is rotated and there appears to be some increase in the bilateral opacities, although some of this may be due to the technique. The ET tube and OG tube appear in satisfactory position and the central lines are unchanged. ASSESSMENT AND PLAN: Ms. Ritchie is a 60-year-old female with a past medical history of rheumatoid arthritis, chronic obstructive pulmonary disease (COPD), depression, and obesity who presented at an outside hospital initially with acute hypoxemic respiratory failure likely secondary to pneumonia and COPD exacerbation. She was intubated and then transferred to [facility] where on presentation here, she was severely hypoxemic with evidence of diffuse subcutaneous emphysema and bilateral pneumothoraces. The patient required emergent placement of chest tubes bilaterally with improvement in her pneumothoraces and oxygenation. Her hospital course was further complicated with acute renal failure requiring continuous renal replacement therapy (CRRT), as well as cardiac demand ischemia and episodes of atrial fibrillation with rapid ventricular response (RVR). 1. Neurologic: The patient is intubated and sedated. She has been on a Versed drip for sedation during her hospitalization given her hypotension and hemodynamic instability initially. She is also on a Fentanyl drip for analgesia. Her Versed drip was held this morning for a weaning trial; however, with minimal movement and suctioning, the patient became agitated, coughing, and had significant desaturation. Will attempt propofol instead for sedation if blood pressure tolerates and continue with only p.r.n. Versed; as we would like to assess her mental status better. She is opening her eyes to voice now, but does not appear to be tracking or following commands. 2. Cardiac: Patient with a history of demand ischemia likely in the setting of septic shock and severe hypoxemic respiratory failure. She also had episodes of atrial fibrillation with RVR although appears to be rate controlled currently. The patient also initially had septic shock, which has been improving; although, she does require a low dose of Levophed still particularly while on CRRT and may continue to require some Levophed with the propofol for sedation. - Will continue the patient p.o. amiodarone. - Will continue with aspirin and Plavix. 3. Pulmonary: Patient with acute hypoxemic respiratory failure likely initially secondary to pneumonia and COPD exacerbation. She was intubated and placed on mechanical ventilation at an outside facility with complication of bilateral pneumothoraces and severe subcutaneous emphysema. The patient also with acute respiratory distress syndrome (ARDS) in the setting of her pneumonia. - Patient was having improvement in her oxygen requirements and was able to be weaned down to an FiO2 of 45% with fluid removal on CRRT. Her x-ray today, however, shows questionably worsening opacities; although, some of this may be due to the technique as she is more rotated. She does have issues, however, with minimal agitation and movement of significant desaturation on the ventilator and required increasing FiO2 at that point. - The patient also has persistent leukocytosis despite being on broad-spectrum antibiotics, as well as episodes of hypothermia still. She was started on micafungin previously for concern for possible fungal process and the fungal blood cultures are still pending. - Will continue with broad-spectrum antibiotics with vancomycin and Zosyn, as well as the micafungin for now. - Will continue patient on mechanical ventilation with volume control settings of 440/20/45 and 5. Will continue our attempts at weaning trial; although suspect patient will have difficulty with weaning from the ventilator. - Will continue bilateral chest tubes to wall suction while intubated. - Continue with daily arterial blood gases (ABGs) and chest x-rays while intubated. - Continue with vent bundle care with head of bed elevation and chlorhexidine mouthwash. - Continue with Solu-Medrol. Will continue tapering down to 40 mg q. 8 hours. - Will repeat procalcitonin. Her previous procalcitonin was still mildly elevated. 4. Renal: Patient with acute renal failure in the setting of septic shock and ARDS, as well as contrast exposure initially. She is on CRRT and continues to require CRRT as she appears to have oliguria. - Appreciate renal consult and recommendations. We have been doing fluid removal for the last two day as her blood pressure was tolerating. She does not appear to be significantly fluid overloaded at this time and so we will continue to keep her net even with CRRT. 5. Gastrointestinal (GI): The patient has been tolerating tube feeds at 30 mL/hour. We will increase her tube feed rate to 40 mL/hour and continue with protein supplement for her hypoalbuminemia and protein-calorie malnutrition. 6. Hematologic: Patient with episodes of anemia requiring packed red blood cells (PRBC) transfusion occasionally. She did get transfused yesterday with appropriate response. Deep vein thrombosis (DVT) prophylaxis with heparin subcutaneous. Code status: FULL CODE. Plan for family meeting with the patient's and her sons today about further goals of care. TOTAL CRITICAL CARE TIME: Not including procedures approximately 40 minutes. LEFTY
--- NOTE | 2020-12-19 13:18 | CCN ---
CRITICAL CARE NOTE DATE: 12/19/2020 SUBJECTIVE: Ms. Ritchie is seen this morning on her bedside in the Intensive Care Unit. She remains on the ventilator, however her oxygen requirement has been gradually improving. She is on a minimal dose of Levophed and blood pressure has been relatively stable. The nursing staff reports that CVP last night was 13. She remains anuric and continues with CRRT on her bedside. OBJECTIVE: VITAL SIGNS: Temperature is 97.9 degrees Fahrenheit, heart rate is 70 per minute and respiratory rate is 18 per minute. Blood pressure is 98/53 mmHg and oxygen saturation 92%. INTAKE AND OUTPUT: Slightly negative with 580 ml negative over the last 24 hours. She does not have any urine output and all this fluid removal is due to CRRT. HEAD AND NECK: Head is atraumatic. Endotracheal and orogastric tubes are in place. Right sided hemodialysis catheter and in right internal jugular vein is present which is currently being used for CRRT. Neck veins are not significantly distended. HEART: Heart sounds are irregular in rhythm. LUNGS: Good bilateral air entry. ABDOMEN: Soft, bowel sounds are present. EXTREMITIES: Without any cyanosis or clubbing. She is still hypothermic and requiring hypothermic blanket. NEUROLOGIC: Sedated and unresponsive. LABORATORY DATA: Today's labs shows a WBC of 23.6, hemoglobin 9.8 and hematocrit 29.8. Blood gas today showed a pH of 7.43, pCO2 37, pO2 74 and bicarbonate 24.5. Sodium 136, potassium 4.8, CO2 29, BUN 34 and creatinine 1.17. Glucose is 160. Calcium is 7.8. Total protein 5.3 and albumin 1.7. A procalcitonin level is 0.90. PROBLEMS: 1. Anuric acute renal failure. Patient remains anuric and dependent on CRRT. We will continue with the same and electrolytes are all improved and stable at this point. 2. Anemia. She was transfused 2 units of packed RBCs yesterday and anemia has improved and is stable. 3. Respiratory failure, her respiratory status has improved over the last few days with CRRT and negative fluid balance. I have discussed with Dr. oRss and we would like to keep her in even fluid balance and not remove anymore fluid due to risk for worsening hypotension. She is on minimal dose of Levophed at this point and we will try to wean her off. 4. Septic shock. Patient is gradually improving and remains on antibiotics. She has been significantly weaned off pressors and now on minimal dose of Levophed. 5. Nutrition. She is tolerating some tube feedings and not receiving any TPN. Twenty-seven minutes of critical care time spent and no procedures were performed during this time.
[2020-12-19 16:27] LABS: HEMATOCRIT 29.9 % (36.0-47.0); HEMOGLOBIN 9.8 g/dl (12.0-15.5); MEAN CORPUSCULAR HEMOGLOBIN 28.2 pg (27.0-33.0); MEAN CORPUSCULAR HGB CONC 32.8 g/dl (32.0-36.5); MEAN CORPUSCULAR VOLUME 85.9 fl (80.0-96.0); PLATELET COUNT, AUTOMATED 160 10^3/uL (150-450); RED BLOOD COUNT 3.48 10^6/uL (4.00-5.40); WHITE BLOOD COUNT 23.8 10^3/uL (4.0-10.0)
[2020-12-19] MEDS: methylPREDNISolone 40MG 1ML VIAL IV SCH (16:47)
[2020-12-19 16:49] LABS: CALCIUM LEVEL 8.7 MG/DL (8.8-10.2); CREATININE FOR GFR 1.16 MG/DL (0.55-1.30); GLOMERULAR FILTRATION RATE 50.6 (>45); MAGNESIUM LEVEL 2.4 MG/DL (1.8-2.4); PHOSPHORUS LEVEL 2.3 MG/DL (2.5-4.9); POTASSIUM SERUM 4.6 MEQ/L (3.5-5.1)
[2020-12-19] MEDS: VANCOMYCIN HCL 750 MG, VIAL MATE ADAPTER 1 EACH in NS 250 ML IV SCH (19:00)
[2020-12-19] MEDS: NOREPINEPHRINE BITARTRATE 8 MG in D5W 492 ML IV SCH (20:00)
[2020-12-19] MEDS ORDERED: POTASSIUM PHOSPHATE INJ 15 MMOL in D5W 250 ML IV ONE (22:30)
[2020-12-20] VITALS (99 sets, daily range): BP systolic 79–214; BP diastolic 45–114
[2020-12-20] MEDS: ALBUTEROL SULFATE 2.5 MG/0.5 ML INH NEB SOLN NEB SCH ×6 (00:37→19:31)
[2020-12-20] MEDS: methylPREDNISolone 40MG 1ML VIAL IV SCH ×3 (01:00→16:08)
[2020-12-20 04:11] LABS: BASO # 0.1 10^3/uL (0.0-0.2); BASO % 0.3 % (0.0-1.0); HEMATOCRIT 26.7 % (36.0-47.0); HEMOGLOBIN 8.6 g/dl (12.0-15.5); LYMPH # 0.4 10^3/uL (1.5-5.0); LYMPH % 1.7 % (24.0-44.0); MEAN CORPUSCULAR HEMOGLOBIN 28.2 pg (27.0-33.0); MEAN CORPUSCULAR HGB CONC 32.2 g/dl (32.0-36.5); MEAN CORPUSCULAR VOLUME 87.5 fl (80.0-96.0); MONO # 0.6 10^3/uL (0.0-0.8); MONO % 2.4 % (2.0-8.0); NEUTROPHILS # 21.5 10^3/uL (1.5-8.5); NEUTROPHILS % 90.6 % (36.0-66.0); PLATELET COUNT, AUTOMATED 155 10^3/uL (150-450); RED BLOOD COUNT 3.05 10^6/uL (4.00-5.40); WHITE BLOOD COUNT 23.8 10^3/uL (4.0-10.0)
[2020-12-20 04:45] LABS: CALCIUM LEVEL 7.7 MG/DL (8.8-10.2); CREATININE FOR GFR 1.03 MG/DL (0.55-1.30); MAGNESIUM LEVEL 2.3 MG/DL (1.8-2.4); PHOSPHORUS LEVEL 2.8 MG/DL (2.5-4.9); POTASSIUM SERUM 4.9 MEQ/L (3.5-5.1)
[2020-12-20] MEDS: MIDAZOLAM INJ 2MG/2ML VIAL (J2250 PER 1MG) IV PRN ×5 (04:59→22:37)
[2020-12-20] MEDS ORDERED: CALCIUM GLUCONATE 1,000 MG, VIAL MATE ADAPTER 1 EACH in NS 100 ML IV ONE (05:00)
[2020-12-20] MEDS: PIPERACILLIN/TAZOBACTAM SOD 4.5 GM in D5W MINI-BAG PLUS 50 ML IV SCH ×3 (05:24→22:36)
[2020-12-20] MEDS: HEPARIN SOD (PORCINE) 5000UNITS/ML 1ML VIAL/SYRINGE SQ SCH ×3 (05:25→22:36)
[2020-12-20 05:50] LABS: ABG BASE EXCESS -0.4 (-2.0-2.0); ABG HCO3 23.7 MEQ/L (22.0-26.0); ABG O2 SATURATION 95.7 % (95.0-99.0); ABG PARTIAL PRESSURE CO2 36.4 mmHg (35.0-45.0); ABG PARTIAL PRESSURE O2 77.3 mmHg (75.0-100.0); ABG STANDARD HCO3 24.1 MEQ/L (22.0-26.0); ABG TOTAL CO2 24.8 MEQ/L (23.0-31.0); ABG pH (ARTERIAL) 7.431 UNITS (7.350-7.450)
[2020-12-20] MEDS: VANCOMYCIN HCL 750 MG, VIAL MATE ADAPTER 1 EACH in NS 250 ML IV SCH ×2 (07:10→18:37)
[2020-12-20] MEDS: propofoL 1,000 MG in IV 1 EA IV SCH ×2 (07:10→14:11)
--- NOTE | 2020-12-20 07:58 | REP ---
INDICATION: RESPIRATORY FAILURE COMPARISON: 12/19/2020 TECHNIQUE: Portable AP view of the chest FINDINGS: Endotracheal tube 3 cm above the nicky. Nasogastric tube courses below left hemidiaphragm. Double-lumen right IJ line with tip in the SVC. Left IJ line with tip in the SVC. Bilateral chest tubes in stable position. Diffuse bilateral airspace disease may be slightly improved as compared with prior examination. No obvious effusion. No obvious pneumothorax. IMPRESSION: 1. Lines and tubes in satisfactory stable position. 2. Diffuse bilateral airspace disease minimally improved. <Electronically signed by Alber Boudreaux > 12/20/20 0758
[2020-12-20] MEDS: PANTOPRAZOLE 40MG VIAL (C9113 PER 1) IV SCH (08:26)
[2020-12-20] MEDS: CHLORHEXIDINE GLUCONATE 0.12 % 15ML UDC (PERIDEX ORAL RINSE) MT SCH ×2 (08:27→20:17)
[2020-12-20] MEDS: LACRILUBE (AKWA TEARS) OPHTH OINT 3.5 GM OU SCH ×3 (08:27→20:17)
[2020-12-20] MEDS: CLOPIDOGREL 75 MG TAB NG SCH (08:27)
[2020-12-20] MEDS: ASPIRIN 300 MG SUPP PR SCH (08:27)
[2020-12-20] MEDS: AMIODARONE 200 MG TAB (PACERONE) PO SCH ×3 (08:27→20:17)
[2020-12-20] MEDS ORDERED: SODIUM CHLORIDE 0.9% INJ 10 ML SYR IV PRN (09:00)
[2020-12-20] MEDS: MICAFUNGIN SODIUM 100 MG in D5W MINI-BAG PLUS 100 ML IV SCH (10:39)
[2020-12-20] MEDS ORDERED: MORPHINE 2 MG/ML 1ML VIAL (J2270) As Ordered ONE (11:01)
[2020-12-20] MEDS ORDERED: MORPHINE 2 MG/ML 1ML VIAL (J2270) IV STA (11:04)
--- NOTE | 2020-12-20 12:28 | CCN ---
CRITICAL CARE NOTE DATE: 12/20/2020 CRITICAL CARE TIME: 30 minutes, this excludes all procedures. SUBJECTIVE: I was called urgently to the patient's beside for an acute response code. The patient did have a pulse on my arrival and was on mechanical ventilation but was dyssynchronous and in obvious respiratory distress. Oxygen saturations were in the low 80s. Heart rate was ranging 160 to 180 and what appeared to be atrial fibrillation with rapid response. There was intermittent ventricular tachycardia of 6 to 8 beats at a time. After trouble shooting, it was determined that the main driving cause was hypoxia and therefore oxygen saturations were increased, PEEP was increased and suctioning was performed. There was not much result with suctioning, however with bagging the patient had significant gurgling sounds from the airway, I suspected mucous plugging as the patient had recently been turned and therefore I performed bronchoscopy. Please see that note for details. There was significant mucous plugging especially on the left. This was cleared with improvement of oxygen saturations.
--- NOTE | 2020-12-20 12:54 | RO ---
OPERATIVE NOTE DATE OF OPERATION: 12/20/2020 PREOPERATIVE DIAGNOSIS: POSTOPERATIVE DIAGNOSIS: PROCEDURE: Bronchoscopy. INDICATION: Hypoxia, mucus plugging. The patient was hypoxic with atrial fibrillation with rapid ventricular response, intermittent ventricular tachycardia. The patient had just been rolled by the nursing staff. SURGEON: Hector Ferrara DO RESIN FILTERER: None ANESTHESIA: Patient on sedation for ventilation, 2 additional mg of versed given during procedure. DESCRIPTION OF PROCEDURE: Suctioning was attempted. Could not obtain any mucus secretions. Then I performed bronchoscopy. There was obstruction of the left lower lobe. With suctioning of her airways and removal of thick, tenacious sputum from all her airways, oxygen saturation improved to 96% and heart rate improved to 120. After the description of the airway at the level of the endotracheal tube, there was minimal plugging of the endotracheal tube. This was cleared. External to the endotracheal tube there was white plaqueing. Shanna was sharp. Left mainstem was full of thick, clear to white mucus. Right was fairly clear. RB1-10 was inspected without endobronchial lesions and I re-suctioned there. LB1-10 was suctioned. I performed lavages of the left lower lobe in order to clear the secretions and improve oxygenation. After procedure was completed, the bronchoscope was removed. Saturations improved to 96%. There were no observed complications. LEFTY
--- NOTE | 2020-12-20 14:38 | CCN ---
CRITICAL CARE NOTE DATE: 12/20/2020 SUBJECTIVE: Mrs. Ritchie was seen this morning at her bedside in the Intensive Care Unit. She remains about the same. She is still on a minimal dose of Levophed and her blood pressure fluctuates. She is still hypothermic requiring a hypothermic blanket. Yesterday she failed weaning on the ventilator and is back on 100% oxygen after having an episode of sustained ventricular tachycardia. She has been completely anuric and requiring CRRT at her bedside. OBJECTIVE: PHYSICAL EXAMINATION: GENERAL APPEARANCE: The patient is unresponsive and sedated. VITAL SIGNS: Temperature is 98.1 degrees Fahrenheit with a hypothermic blanket on. Heart rate is up to 111 per minute and respiratory rate is 20 per minute. Blood pressure has fluctuated between 81/52 and 91/50 mm of mercury. HEENT: Head is atraumatic. Endotracheal tube and orogastric tubes are in place. NECK: Hemodialysis catheter is in the right internal jugular vein being used for CRRT. CVP is reported at 16 this morning. HEART: Irregular and tachycardic. LUNGS: Good bilateral air entry. ABDOMEN: Soft and bowel sounds are present. EXTREMITIES: Without any cyanosis or clubbing. There is minimal edema on her feet. NEUROLOGICAL: She is sedated and unresponsive at present. LABORATORY STUDIES: Today's labs show a white blood cell count of 23.8, hemoglobin 8.6 and hematocrit 267. Platelet count 155. A random Vancomycin level is 17.7. Sodium 136, potassium 4.9, BUN 33 and creatinine 1.03, glucose 147 and calcium 7.7. PROBLEMS: 1. Anuric acute renal failure - The patient remains on CRRT and will continue with the same as long as it is working. Her CRRT orders are being renewed. 2. Respiratory failure she failed weaning and in fact has worsened after having an episode of ventricular tachycardia. We will try to remove 50 mL of fluid per hour if tolerated. 3. Anemia her anemia is slightly worse compared to yesterday. No urgent need for transfusion at this point. We will recheck her tomorrow and consider transfusion if needed. 4. Septic shock she is still on a low dose of Levophed. She remains on Vancomycin and Micafungin has been added in addition to Zosyn. She is being followed by the Critical Care Team. 5. Hypothermia - she has persistent hypothermia, probably related to her sepsis. 6. Condition - At this point I feel that her prognosis is not great as she has not made much progress over the last several days. The patient's family has wished to continue with all aggressive care and the Critical Care Team has been in discussion with the patient's family. Twenty-six minutes of critical care time spent during which no procedures were performed.
[2020-12-20] MEDS ORDERED: D5W IV ONE (15:00)
[2020-12-20] MEDS ORDERED: MICAFUNGIN SODIUM IV ONE (15:00)
[2020-12-20 16:45] LABS: HEMATOCRIT 28.2 % (36.0-47.0); HEMOGLOBIN 8.9 g/dl (12.0-15.5); MEAN CORPUSCULAR HEMOGLOBIN 27.9 pg (27.0-33.0); MEAN CORPUSCULAR HGB CONC 31.6 g/dl (32.0-36.5); MEAN CORPUSCULAR VOLUME 88.4 fl (80.0-96.0); PLATELET COUNT, AUTOMATED 161 10^3/uL (150-450); RED BLOOD COUNT 3.19 10^6/uL (4.00-5.40); WHITE BLOOD COUNT 29.3 10^3/uL (4.0-10.0)
[2020-12-20] MEDS: fentaNYL CITRATE 1,000 MCG in NS 80 ML IV SCH (16:57)
[2020-12-20 17:15] LABS: CALCIUM LEVEL 8.1 MG/DL (8.8-10.2); CREATININE FOR GFR 1.63 MG/DL (0.55-1.30); GLOMERULAR FILTRATION RATE 34.1 (>45); MAGNESIUM LEVEL 2.4 MG/DL (1.8-2.4); PHOSPHORUS LEVEL 4.5 MG/DL (2.5-4.9); POTASSIUM SERUM 4.9 MEQ/L (3.5-5.1)
[2020-12-20] MEDS: NOREPINEPHRINE BITARTRATE 8 MG in D5W 492 ML IV SCH (20:16)
--- NOTE | 2020-12-20 21:38 | CCN ---
CRITICAL CARE NOTE DATE: 12/20/2020 SUBJECTIVE: Patient was seen and examined today during bedside rounds. Earlier in the morning, patient had accidental removal of her hemodialysis catheter after she had been turned and repositioned. She did have adequate hemostasis achieved in the right internal jugular (IJ) site. Patient did have issue afterwards, however, with atrial fibrillation with some rapid ventricular response. Patient was also having some episodes of hypoxia and vent asynchrony although her FiO2 was being increased. She then developed several episodes of nonsustained ventricular tachycardia (VT) interspersed with the episodes of atrial fibrillation with rapid ventricular response with heart rate in the 150s to 160s. Patient continued to be hypoxic with saturations in the 80s. She did require bronchoscopy by Dr. Ferrara for clearance of thick, tenacious mucus deep in the left lower lobe. Post bronchoscopy, patient's oxygenation did improve and she was able to be weaned down on some of her vent settings. Her PEEP had been increased initially, as well as her FiO2. Patient's had been updated as to the events based on our previous discussion with the family yesterday, where they were considering DO NOT RESUSCITATE (DNR), given her goals of care. Patient's did elect to make the patient DO NOT RESUSCITATE (DNR) at that time. Yesterday we had discussed extensively her prognosis and her various options and patient's had stated patient herself would not have wanted to be on prolonged mechanical ventilation and would definitely not have wanted a tracheostomy tube placement. He also mentioned that she was also someone who would not want to be on hemodialysis either for long-term, even as an outpatient. Patient's , therefore, is also discussing palliative extubation and COMFORT MEASURES ONLY, although he would like a few more family members to see her prior to the palliative extubation. OBJECTIVE: Temperature 96.3, pulse 54, respirations 22, blood pressure 114/61, oxygen saturation 95% on 50% FiO2. INTAKE AND OUTPUT: In 2.4 liters, out 2.4 liters, net negative 248 mL. GENERAL: Patient is intubated and sedated on mechanical ventilation. She is responsive somewhat to painful stimuli, but is not tracking and not following commands. HEENT: Normocephalic, atraumatic. Pupils equal to light bilaterally. Moist mucous membranes. NECK: Supple. Trachea midline. There is a gauze dressing in the right internal jugular (IJ) with no evidence of bleeding and there is a triple lumen catheter in the left IJ. CARDIAC: Regular rate and rhythm. Not able to clearly appreciate murmurs. PULMONARY: Coarse ventilator breath sounds bilaterally with some more diminished breath sounds at the bases. ABDOMEN: Obese. Soft, nontender, nondistended. There are bowel sounds present. EXTREMITIES: There is no significant upper or lower extremity edema noted bilaterally. LABORATORY STUDIES: WBC 23.8, hemoglobin 8.6, platelets 155. Chemistry: Sodium 136, potassium 4.9, chloride 103, bicarbonate 31, BUN 33, creatinine 1.03, glucose 1.3. Arterial blood gas (ABG): pH 7.431, pCO2 36.4, pO2 77.3. Chest x-ray this morning had shown some improvement in the bilateral opacities, although some of this may be because she is less rotated. The endotracheal (ET) tube and orogastric (OG) tube are in path right position. Her central line in the right IJ and left IJ are unchanged. ASSESSMENT AND PLAN: Ms. Ritchie is a 60-year-old female with a past medical history of rheumatoid arthritis, chronic obstructive pulmonary disease (COPD), depression, morbid obesity who presented initially at an outside hospital with acute hypoxemic respiratory failure likely secondary to pneumonia and COPD exacerbation. She was intubated and transferred here for further management where, on presentation, she was found to be severely hypoxemic with evidence of diffuse subcutaneous emphysema and bilateral pneumothoraces. Patient had emergent chest tube placement bilaterally with improvement in her pneumothoraces. Her hospital course was further complicated by acute renal failure requiring continuous renal replacement therapy (CRRT) as well as episodes of atrial fibrillation with rapid ventricular response and demand ischemia. 1. Neurologic. The patient is intubated and sedated. She was changed from Versed drip to propofol drip, which she has been tolerating in an attempt to help further assess her mental status. She is also on a Fentanyl drip for analgesia. a. We will continue with sedation while intubated and will continue with weaning as tolerated, although with sedation vacation, she does have episodes of vent asynchrony and hypoxia. 2. Cardiac. Patient with demand ischemia, likely in the setting of septic shock and severe hypoxemic respiratory failure, which has improved. She also has episodes of atrial fibrillation with rapid ventricular response, although she does appear to go back into sinus rhythm at times. She is on amiodarone still as well as aspirin and Plavix. a. Patient did also have septic shock initially and had been on Levophed, although her requirements had improved. She does require low dose Levophed still, particularly with sedation, while she was on continuous renal replacement therapy (CRRT). b. Patient's episodes of nonsustained ventricular tachycardia (VT) were likely in the setting of her hypoxia and respiratory distress. We will continue to monitor for now. She does not seem to have electrolyte abnormalities. 3. Pulmonary. Patient with acute hypoxemic respiratory failure likely secondary initially to pneumonia and chronic obstructive pulmonary disease (COPD) exacerbation. There was also concern initially for a pulmonary renal syndrome and she was on high dose intravenous (IV) steroids. No evidence with bronchoscopy of diffuse alveolar hemorrhage (DAH). She also had bilateral pneumothoraces and had required placement of bilateral chest tube. Patient was also with acute respiratory distress syndrome (ARDS) with acute hypoxemia. a. Patient has had improvement in her oxygen requirements with fluid removal with CRRT. She does continue to have opacities bilaterally, however, and on her bronchoscopy today had thick, mucus plugging in her airway still. There is suspicion for a possible fungal process in the lungs, particularly given her persistent leukocytosis and being on broad spectrum antibiotics. She was on immunosuppressant medications as an outpatient for her rheumatoid arthritis and was also on high dose steroids here. b. Will increase her micafungin to 150 mg and continue broad spectrum antibiotics for now with vancomycin and Zosyn. c. Will continue patient on mechanical ventilation with setting of 440/20/50 and 8. Her PEEP was increased earlier today, but had been weaned down slightly with improvement in her oxygenation. d. Will continue with bilateral chest tubes with suction while intubated. e. Continue daily arterial blood gases (ABGs) and chest x-rays while intubated. f. Continue with head of bed elevation and chlorhexidine mouthwash. g. Continue with Solu-Medrol, which was tapered down to 40 mg every 8 hours. h. Patient's was updated as to her events today and her continued issues with desaturation and likely difficulty with ventilatory weaning. He did reiterate that she would not have wanted a prolonged mechanical ventilation and definitely not have wanted a tracheostomy placement. He is discussing this with his sons further, but there is a tentative plan for palliative extubation on Friday after family has been able to come and visit her. 4. Renal. Patient with acute renal failure in the setting of septic shock and ARDS. She was on CRRT; however, her hemodialysis catheter had become accidentally dislodged earlier today. a. Appreciate renal consultation recommendations. 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 Will continue to closely monitor her renal function and electrolytes, as well as volume status. She does not clinically appear to be significantly fluid overloaded at this time as well and so there is no emergent indication for hemodialysis. She is still oliguric, however, and we will closely monitor. 5. Gastrointestinal (GI). Patient had been tolerating tube feeds previously, although today was noted to have some increased residuals. Will continue to closely monitor and hold tube feeds if residuals are more than 350 mL. Will continue with protein supplementation for her hypoalbuminemia. 5. Hematology. Patient with episodes of anemia and had been requiring packed red blood cells (PRBC) transfusions occasionally. Her hemoglobin has remained stable today. Will continue to monitor and transfuse as needed. Deep venous thrombosis (DVT) prophylaxis with heparin subcutaneous. CODE STATUS: Patient's medical orders for life-sustaining treatment (MOLST) form was updated to reflect her new code status of DO NOT RESUSCITATE (DNR) with a trial of intubation. There is plan for possible palliative extubation on Friday after some of her other family members have been able to see her. TOTAL CRITICAL CARE TIME NOT INCLUDING PROCEDURES: Approximately 45 minutes. LEFTY
[2020-12-21] VITALS (83 sets, daily range): BP systolic 80–163; BP diastolic 41–72
[2020-12-21] MEDS: ALBUTEROL SULFATE 2.5 MG/0.5 ML INH NEB SOLN NEB SCH ×6 (00:08→19:51)
[2020-12-21] MEDS: methylPREDNISolone 40MG 1ML VIAL IV SCH ×3 (00:13→16:33)
[2020-12-21] MEDS: MIDAZOLAM INJ 2MG/2ML VIAL (J2250 PER 1MG) IV PRN ×10 (00:13→21:29)
[2020-12-21] MEDS: propofoL 1,000 MG in IV 1 EA IV SCH ×4 (00:18→22:27)
[2020-12-21 04:50] LABS: HEMATOCRIT 26.2 % (36.0-47.0); HEMOGLOBIN 8.5 g/dl (12.0-15.5); MEAN CORPUSCULAR HEMOGLOBIN 28.5 pg (27.0-33.0); MEAN CORPUSCULAR HGB CONC 32.4 g/dl (32.0-36.5); MEAN CORPUSCULAR VOLUME 87.9 fl (80.0-96.0); PLATELET COUNT, AUTOMATED 175 10^3/uL (150-450); RED BLOOD COUNT 2.98 10^6/uL (4.00-5.40); WHITE BLOOD COUNT 29.7 10^3/uL (4.0-10.0)
[2020-12-21 05:13] LABS: CALCIUM LEVEL 8.1 MG/DL (8.8-10.2); CREATININE FOR GFR 2.42 MG/DL (0.55-1.30); GLOMERULAR FILTRATION RATE 21.6 (>45); MAGNESIUM LEVEL 2.4 MG/DL (1.8-2.4); PHOSPHORUS LEVEL 5.1 MG/DL (2.5-4.9); POTASSIUM SERUM 5.6 MEQ/L (3.5-5.1)
[2020-12-21] MEDS: HEPARIN SOD (PORCINE) 5000UNITS/ML 1ML VIAL/SYRINGE SQ SCH ×3 (06:16→21:04)
[2020-12-21] MEDS: PIPERACILLIN/TAZOBACTAM SOD 4.5 GM in D5W MINI-BAG PLUS 50 ML IV SCH ×3 (06:16→21:04)
[2020-12-21] MEDS: CHLORHEXIDINE GLUCONATE 0.12 % 15ML UDC (PERIDEX ORAL RINSE) MT SCH ×2 (09:05→20:57)
[2020-12-21] MEDS: LACRILUBE (AKWA TEARS) OPHTH OINT 3.5 GM OU SCH ×3 (09:05→20:58)
[2020-12-21] MEDS: AMIODARONE 200 MG TAB (PACERONE) PO SCH ×3 (09:05→20:57)
[2020-12-21] MEDS: PANTOPRAZOLE 40MG VIAL (C9113 PER 1) IV SCH (09:05)
[2020-12-21] MEDS: ASPIRIN 300 MG SUPP PR SCH (09:05)
[2020-12-21] MEDS: CLOPIDOGREL 75 MG TAB NG SCH (09:05)
[2020-12-21] MEDS: fentaNYL CITRATE 1,000 MCG in NS 80 ML IV SCH (09:17)
--- NOTE | 2020-12-21 10:34 | REP ---
INDICATION: daily ETT placement verification. COMPARISON: Multiple the latest yesterday TECHNIQUE: Portable FINDINGS: The technique utilized in obtaining the radiograph has magnified the cardiac silhouette and accentuated the interstitial markings. The cardiomediastinal silhouette is unchanged. Once again, diffuse interstitial and airspace opacities are seen throughout the lung diop and a stable appearing fashion. No new parenchymal opacities have developed since the last exam. There are no gross pleural effusions identified on this portable exam. Bilateral thoracotomy tubes are again noted status quo. The tip of the central venous catheter remains in the left brachiocephalic vein/superior vena cava junction. This catheter is seen entering from the left internal jugular approach. The other central venous catheter which was entering from the right internal jugular approach has been removed. There is no change in appearance of the endotracheal tube. Remains in satisfactory position. There is no change in appearance of the nasogastric tube. The tip is beyond the confines of the radiograph. There is no significant change in appearance of the osseous structures. IMPRESSION: Stable lung diop as described above. Tubes and lines as described above. <Electronically signed by Jay Singh > 12/21/20 [id number]
[2020-12-21] MEDS: MICAFUNGIN SODIUM 150 MG in D5W 100 ML IV SCH (10:39)
[2020-12-21] MEDS ORDERED: MICAFUNGIN SODIUM 150 MG in D5W 100 ML IV SCH (11:00)
--- NOTE | 2020-12-21 12:22 | CCN ---
CRITICAL CARE NOTE DATE: 12/21/2020 SUBJECTIVE: Mrs. Ritchie is seen this morning on her bedside in the intensive care unit. She remains critically ill on the ventilator. Her blood pressure is still low and she is on minimal dose of Levophed. Yesterday, she had an episode of ventricular tachycardia and while she was being turned, her dialysis catheter got pulled and came out. At that point, it was decided to stop the CRRT temporarily. Critical care service was consulted and they did not feel that CRRT was urgently needed as family was trying to make a decision about her future care. She also had ventricular tachycardia and there was risk for further arrhythmias on insertion of guidewire for a new catheter placement, so we held off. She remains anuric and her labs have worsened significantly over the last 24 hours. OBJECTIVE: VITAL SIGNS: Temperature 98.4 degrees Fahrenheit, heart rate 68 per minute, respiratory rate 20 per minute, blood pressure 131/63 mmHg, and oxygen saturation 92% on the ventilator with 50% oxygen. INTAKE AND OUTPUT: Records from yesterday show a positive fluid balance of just over 2 liters. HEAD: Atraumatic. NECK: Veins are difficult to be assessed. HEART: Sounds are irregular in rhythm. LUNGS: Have good bilateral air entry. ABDOMEN: Soft and bowel sounds are present. EXTREMITIES: Without any cyanosis or clubbing. NEUROLOGIC: She remains sedated. LABORATORY DATA: Today's labs show WBC count 29.7, hemoglobin 8.5, hematocrit 26.2, platelets 175,000. Sodium 135, potassium 5.6, CO2 of 28, BUN up to 72, creatinine 2.42, glucose 134 and calcium 8.1. Phosphorus is 5.1. PROBLEMS: 1. Anuric acute renal failure. The patient is still anuric and is likely to require renal replacement therapy again. At this point, I discussed with Dr. Ross who has advised me to wait for a few hours as the patient's is coming to see her this afternoon and then decide if they wish to continue with aggressive care or consider to withdraw care. She is still oxygenating with 50% FiO2; however, has developed hyperkalemia. Nursing staff will notify me as soon as the family makes a decision and then, we will consider to resume continuous renal replacement therapy (CRRT) with a new catheter placement if family decides to continue with aggressive care. 2. Hyperkalemia related to anuric acute renal failure and sepsis. Will hold off on use of Kayexalate or Veltassa. At this point, we will wait for the family's decision and resume dialysis if they decide to continue with aggressive care in a few hours. 3. Anemia. No significant change and no urgent need for transfusion at this point. 4. Respiratory failure. The patient remains on the ventilator without any significant change in her FiO2 requirement. She is volume positive since yesterday due to lack of dialysis. She is not likely to respond to diuretics and we will wait for the family's decision in order to resume CRRT if needed. CRITICAL CARE TIME: 23 minutes spent during which no procedures were performed.
[2020-12-21] MEDS ORDERED: HumuLIN R (REGULAR) INSULIN (NovoLIN R) **100U/ML** PER UNIT IV STA (12:33)
[2020-12-21] MEDS ORDERED: DEXTROSE 50% 50 ML SYRINGE IV STA (12:33)
[2020-12-21 15:37] LABS: CALCIUM LEVEL 7.8 MG/DL (8.8-10.2); CREATININE FOR GFR 2.97 MG/DL (0.55-1.30); GLOMERULAR FILTRATION RATE 17.1 (>45); POTASSIUM SERUM 5.8 MEQ/L (3.5-5.1)
[2020-12-21] MEDS ORDERED: SOD POLYSTYRENE SULFONATE SUSP 15 GM/60 ML UD PO ONE (16:05)
[2020-12-21] MEDS ORDERED: CALCIUM GLUCONATE 1,000 MG in D5W MINI-BAG PLUS 100 ML IV ONE (16:05)
[2020-12-21] MEDS: NOREPINEPHRINE BITARTRATE 8 MG in D5W 492 ML IV SCH (20:58)
[2020-12-22] VITALS (42 sets, daily range): BP systolic 88–154; BP diastolic 49–70
[2020-12-22] MEDS: NOREPINEPHRINE BITARTRATE 8 MG in D5W 492 ML IV SCH ×2
[2020-12-22] MEDS: ALBUTEROL SULFATE 2.5 MG/0.5 ML INH NEB SOLN NEB SCH ×3 (00:05→07:22)
[2020-12-22] MEDS: methylPREDNISolone 40MG 1ML VIAL IV SCH ×2 (00:16→08:54)
[2020-12-22] MEDS: fentaNYL CITRATE 1,000 MCG in NS 80 ML IV SCH (04:05)
[2020-12-22] MEDS: MIDAZOLAM INJ 2MG/2ML VIAL (J2250 PER 1MG) IV PRN (04:39)
[2020-12-22] MEDS: propofoL 1,000 MG in IV 1 EA IV SCH ×2 (05:23→11:29)
[2020-12-22] MEDS: HEPARIN SOD (PORCINE) 5000UNITS/ML 1ML VIAL/SYRINGE SQ SCH (05:23)
[2020-12-22] MEDS: PIPERACILLIN/TAZOBACTAM SOD 4.5 GM in D5W MINI-BAG PLUS 50 ML IV SCH (05:23)
--- NOTE | 2020-12-22 07:22 | CCN ---
CRITICAL CARE NOTE DATE: 12/21/2020 SUBJECTIVE: The patient was seen and examined this morning during bedside rounds. Overnight, the patient was not noted to have any acute events. She has remained on low dose of propofol sedation and a low dose of Levophed as well but has been maintaining her MAP above 65. She has not had any fevers overnight and her hypothermia has improved. This morning, the patient did have episode of vomiting of her tube feeds. She was then placed NPO and her tube feeds were held. The patient's family has decided on team members to come and see her today as there is a plan now with her and children for a palliative extubation on Friday and comfort measures only. OBJECTIVE: Vitals: Temperature 98.8, pulse 65, respirations 20, blood pressure 110/66. O2 sat is 94% on 50% FiO2 and 2.9 liters out, 898 mL General: The patient is intubated on mechanical ventilation. She occasionally opens her eyes spontaneously but does not appear to be responding to voice or tracking and not following commands. HEENT: Normocephalic, atraumatic. Pupils are equal and reactive to light bilaterally. There are moist mucous membranes noted. Neck: Supple. Trachea is midline. There is a dressing in place in the right IJ without evidence of bleeding or significant hematoma. There is a triple lumen catheter in the left IJ. Cardiac: Regular rate and rhythm. Normal S -1, S-2, unable to clearly appreciate murmurs. Pulmonary: There are coarse ventilator breath sounds bilaterally with diminished breath sounds at the bases but no significant wheezing noted. Abdomen: Obese, soft, nontender, nondistended. There are hypoactive bowel sounds present. The patient did have some bowel movements noted. Extremities: There is no significant lower extremity edema noted bilaterally. LABS: WBC 29.7, hemoglobin 8.5, platelets 175. Chemistries: Sodium is 135, potassium 5.6. Chloride is 101, bicarb 28, BUN 72, creatinine 2.42. Glucose is 134. Potassium is 8.1, phos 5.1, magnesium 2.6. IMAGING STUDIES: Chest x-ray this morning shows diffuse bilateral air space opacities which appear somewhat slightly denser now. There is a left IJ triple lumen in place. The previous right IJ line has been removed. There is an endotracheal tube and an OG tube in place. ASSESSMENT AND PLAN: Miss Ritchie is a 50-year-old female with a past medical history of rheumatoid arthritis, COPD, depression, morbid obesity, who comes initially at an outside hospital with acute hypoxia and respiratory failure likely secondary to pneumonia and COPD exacerbation. She was intubated and transferred here for further management where she was noted on presentation to be severely hypoxemic with evidence of diffuse subcutaneous emphysema and bilateral pneumothoraces. The patient required emergent chest tube placement bilaterally with improvement in her pneumothoraces and in her oxygenation. She had severe ARDS afterwards and had required paralytics initially. Her hospital course was also further complicated by acute renal failure requiring CRRT as well as episodes of atrial fibrillation with rapid ventricular response and demand ischemia. 1. Neurologic. The patient is intubated and sedated. She has been a low dose of propofol drip and a fentanyl drip for analgesia and even with sedation medication or weaning sedation, she is minimally responsive to painful stimuli and does not appear to be tracking or following commands appropriately. The patient does have episodes of vent asynchrony particularly with movement or agitation and significant hypoxia. We will continue with propofol while intubated and with fentanyl drip for analgesia. 2. Cardiac. The patient had demand ischemia likely in the setting of her septic shock and severe hypoxemic respiratory failure. She also had episodes of atrial fibrillation with rapid ventricular response, although she is currently back in sinus rhythm. The patient is on amiodarone which we will continue. We will continue aspirin and Plavix. The patient did have septic shock initially and had been on higher vasopressor requirements. She is only on low dose of Levophed now to maintain MAP above 65 likely in the setting of her ongoing sedation. 3. Pulmonary. Patient with acute hypoxemic respiratory failure likely secondary initially to pneumonia and COPD. There was also concern initially for a pulmonary renal syndrome and she was given high dose IV steroids. Her initial bronchoscopy did not show any evidence of DAH. The patient did have severe ARDS and had initially required a paralytic. She has had improvement in her oxygen requirements, however, has had minimal improvement on imaging. The patient continues to have significant desaturation with minimal movement in agitation. She also has not had any improvement in her mental status despite weaning off sedation and discontinuing her benzodiazepine drip. The patient has continued leukocytosis and there is suspicion for possible fungal pneumonia. She is on micafungin which was increased to 150 mg daily. She is still on broad-spectrum antibiotics still with vancomycin and Zosyn as well. We will continue the patient on mechanical ventilation. She is on settings of 440/20/50 and 8. She does periodically require increased FiO2 for continued episodes of desaturation. The patient has bilateral chest tubes in place still which we will maintain while on ventilator. Continue with daily ABGs and chest x-rays while intubated. Continue with head of bed elevation and chlorhexidine mouthwash. Continue Solu-Medrol which is tapered down to 40 mg q.8 hours. The patient's continues to be updated as to her prognosis and condition. After discussion with family, the decision was made for a palliative extubation which will be performed tomorrow with the patient and her sons at the bedside. 4. Renal. Patient with acute renal failure in the setting of septic shock and ARDS. She has been on CRRT continuously. However, her hemodialysis catheter had accidentally become dislodged yesterday. Appreciate renal consult recommendations. The patient does have some urine although her BUN and creatinine are decreasing. She does not have severe metabolic acidosis at this time and while she has some mild hyperkalemia, there are no emergent indications for hemodialysis at this time particularly as she will be made comfort measures only and palliatively extubated tomorrow. We will continue with medical management for her hyperkalemia with insulin/D50, calcium gluconate as well as Kayexalate. 5. GI. The patient had been tolerating tube feeds previously. However, she did have increased residuals and this morning an episode of vomiting. Her tube feeds are on hold and she is NPO currently. 6. Hematology. The patient had episodes of anemia during her stay requiring periodic transfusions with PRBC. Her hemoglobin has remained stable currently and will continue to monitor. DVT prophylaxis: Heparin subcu. Code Status: The patient is a DNR with a trial intubation but with a plan for palliative extubation and comfort measures only tomorrow. Total critical care time spent not including any procedures approximately 35 minutes.
--- NOTE | 2020-12-22 07:59 | REP ---
INDICATION: intubated COMPARISON: 12/21/2020 TECHNIQUE: Portable AP view of the chest FINDINGS: Bilateral chest tubes are again identified. Nasogastric tube courses below left hemidiaphragm. Endotracheal tube is 1.8 cm above the nicky. Central line with tip in the SVC. Diffuse bilateral alveolar and interstitial infiltrates are essentially unchanged. No definite effusion or pneumothorax identified. IMPRESSION: No significant change from prior examination. Endotracheal tube approaching the nicky may warrant re-evaluation. <Electronically signed by Alber Boudreaux > 12/22/20 [id number]
[2020-12-22] MEDS: CLOPIDOGREL 75 MG TAB NG SCH (08:53)
[2020-12-22] MEDS: AMIODARONE 200 MG TAB (PACERONE) PO SCH (08:53)
[2020-12-22] MEDS: PANTOPRAZOLE 40MG VIAL (C9113 PER 1) IV SCH (08:53)
[2020-12-22] MEDS: CHLORHEXIDINE GLUCONATE 0.12 % 15ML UDC (PERIDEX ORAL RINSE) MT SCH (08:54)
[2020-12-22] MEDS: LACRILUBE (AKWA TEARS) OPHTH OINT 3.5 GM OU SCH (08:54)
[2020-12-22] MEDS: ASPIRIN 300 MG SUPP PR SCH (08:55)
[2020-12-22] MEDS: MICAFUNGIN SODIUM 150 MG in D5W 100 ML IV SCH (11:00)
--- NOTE | 2020-12-22 12:35 | CCN ---
CRITICAL CARE NOTE DATE: 12/22/2020 The patient is seen in the intensive care unit (ICU) intubated and mechanically ventilated, critically ill. This is ICU day #10, hospital day #10, postoperative intubation and chest tubes placement day #10. She has intravenous (IV) access with a peripherally inserted central catheter (PICC) line. Patient has a history of acute respiratory failure, acute respiratory distress syndrome (ARDS), chronic obstructive lung disease, bilateral pneumothorax, hypoxic encephalopathy, acute kidney injury, oliguric, requiring dialysis. Over the past 24 hours there has been no meaningful response to interventions. At bedside her vital signs are temperature 98.6, pulse rate 65, respirations 18/18 delivered. No spontaneous breaths noted. Blood pressure 95/49, oxygen saturation 97% with 60% oxygen. Intake and output for the past 24 hours are 1702 in, 2 mL out. Since midnight, 172 in, 0 mL out. At bedside she is ill appearing. Mucosa is pink. There is an endotracheal tube at 23 cm. Neck is coronado. There is no stridor, no air leak. Heart sounds are regular. Breath sounds globally diminished. Coarse crepitance bilaterally. There are chest tubes in both thoracic cavities. There is no air leak and minimal drainage in either of the chest tubes. Abdomen is soft. No appreciate bowel sounds. Extremities flaccid, cool. Diminished pulses. [place] Coma Scale calculates at 3. DIAGNOSTIC STUDIES: White cell count is 29.7, hemoglobin 8.5, hematocrit 26.2, platelet count 172,000. The most recent arterial blood gas showed a pH 7.43, pCO2 of 36, pO2 of 77. Sodium is 136, potassium 5.8, chloride 101, CO2 of 23, BUN 88, creatinine 2.97, glucose 80. A chest x-ray showed endotracheal tube near the nicky. Two chest tubes in place. Lungs were hyperinflated. Diffuse bilateral interstitial infiltrates were noted. On medications review, she is receiving: - albuterol nebulized therapy every 4 hours - Protonix 40 mg daily - subcutaneous heparin 5000 units every 8 hours - Zosyn 4.5 grams every 8 hours - Plavix 75 mg a day - aspirin 300 mg a day - Levophed titrated to a mean arterial pressure of 65 - amiodarone 200 mg three times a day - Solu-Medrol 40 mg every 8 hours - micafungin 150 mg every 24 hours The primary problem requiring critical attention is acute respiratory failure. Gas exchange is currently acceptable on mechanical ventilation. Hypoxic encephalopathy. The patient has shown no response to therapy, and her [place] Coma Scale is 3. Family has been involved and has elected to withdraw care to comfort measures only. ARDS. The patient is receiving intravenous (IV) steroids. Pneumonia. The patient is receiving Zosyn and micafungin. Bilateral pneumothorax, resolved on chest imaging. Chest tubes are in place and functioning. Oliguric acute renal failure. Dialysis has been withdrawn. The patient's condition is critical. Prognosis is very poor. As noted, the patient's family has elected to withdraw care and are en route to the hospital at this time. I have updated the patient's status and care plans with the ICU nursing team. Sixty-eight minutes was spent in the provision of bedside critical care and coordination, exclusive of any time for the performance of procedures.
[2020-12-22] MEDS ORDERED: LORazepam 2 MG/ML VIAL IV PRN (12:50)
--- NOTE | 2020-12-23 12:53 | DSES ---
DISCHARGE SUMMARY DATE OF ADMISSION: 12/12/2020 DATE OF DISCHARGE: 12/22/2020 DISCHARGE DIAGNOSES: 1. Acute hypoxic respiratory failure. 2. Acute respiratory distress syndrome (ARDS) 3. Pneumonia. 4. Bilateral pneumothorax. 5. Cardiac arrhythmia. 6. Acute kidney failure. 7. Anoxic encephalopathy. 8. Protein calorie malnutrition. HISTORY: The patient is a 60-year-old female who was admitted in transferred from [facility] where she had presented some days earlier with chronic obstructive pulmonary disease (COPD) exacerbation and pneumonia. Her condition deteriorated at [facility] and she required endotracheal tube intubation and transfer to our facility. On arrival, she was found to be in respiratory failure. Imaging showed bilateral pneumothorax and chest tubes were placed. She was subsequently resuscitated and transferred to the intensive care unit. PHYSICAL EXAMINATION: On admission, her temperature was 97.6, pulse rate 108, respirations 18/18 delivered, blood pressure 114/68, oxygen saturation 66 to 94% on 100% oxygen. The patient was described as agonally breathing, tachypneic and tachycardia and in extreme distress. Neck was not deviated. There was no palpable adenopathy. Heart sounds were at that point regular. Breath sounds diminished throughout. Prolonged expiratory phase with wheeze. Abdomen: No appreciable bowel sounds. Extremities: Changes of rheumatoid arthritis were noted. DIAGNOSTIC STUDIES: On admission, her white cell count was 24.5, hemoglobin 10.2, hematocrit 33.3, platelet count 441,000, multiple repeat complete blood counts (CBCs) were performed throughout the hospital stay. On 12/21/2020, the white cell count is 29.7, hemoglobin 8.5, hematocrit 26.2, platelet count 175,000. On admission, her electrolytes showed a sodium of 135, potassium 4.7, chloride 106, Co2 14, BUN was 20, creatinine 0.96, glucose 151, lactic acid 6.5. The AST was 28, ALT 67, LDH 553. Multiple re-evaluations of the electrolytes were performed throughout the hospital stay. The patient's creatinine progressively increased to over 3. Troponin cam to 0.96 and electrolytes on 12/21 showed sodium of 136, potassium 5.8, chloride 101, Co2 23, BUN 88, creatinine 2.97, glucose 80. Arterial blood gases on admission showed a pH of 7.31, pCO2 28, pO2 140. Multiple repeat blood gases were performed, pH dropped as low as 6.9, pCO2 as high as 65, pO2 was maintained. On 12/20,the pH was 7.43, pCO2 36, pO2 77. Chest imaging on admission to the hospital showed diffuse extensive subcutaneous emphysema. Endotracheal tube at 3.7 cm. Multiple and repeat chest x-rays were performed throughout the hospital stay on 12/22. Bilateral chest tubes were noted. Endotracheal tube is in place. Intravenous catheter with the tip in the SVC was noted. HOSPITAL COURSE: The patient was admitted from the emergency department to the intensive care unit. Aggressive resuscitation was performed. Decompression thoracostomies were performed bilaterally. Central line placement was done. Following aggressive resuscitation, including requirements for pressors, the patient's condition did not improve from a neurologic standpoint. CT of the brain was performed on the , which showed moderately diffuse cerebellar atrophy, mild cerebral atrophy. The patient's kidney function declined and nephrology was consulted. Continuous renal replacement therapy was initiated. Despite maximum resuscitative efforts, the patient's condition continued to decline. The family was kept informed of her status throughout the hospital stay and they felt that her wishes would not be commensurate with prolonged ventilation nor the placement of a tracheostomy. They elected for withdrawal of care on 12/22. Shortly after 1 p.m. she was extubated and shortly thereafter . Her [place] was [place] [facility] [place]
== END 2020-12-22 14:40 | disposition expired | DRG 710 ==
LOC: M ICU 06:46
PROVIDERS: ADMIT Internal Medicine Pulmonary Disease; ATTEND Internal Medicine Pulmonary Disease
PROC: 0BH17EZ Insertion of Endotracheal Airway into Trachea, Via Natural or Artificial Opening (ICD-10-PCS; principal; 2020-12-12)
PROC: 0B9J8ZZ Drainage of Left Lower Lung Lobe, Via Natural or Artificial Opening Endoscopic (ICD-10-PCS; 2020-12-12)
PROC: 5A1955Z Respiratory Ventilation, Greater than 96 Consecutive Hours (ICD-10-PCS; 2020-12-12)
PROC: 0W9900Z Drainage of Right Pleural Cavity with Drainage Device, Open Approach (ICD-10-PCS; 2020-12-12)
PROC: 0W9B00Z Drainage of Left Pleural Cavity with Drainage Device, Open Approach (ICD-10-PCS; 2020-12-12)
PROC: 02HV33Z Insertion of Infusion Device into Superior Vena Cava, Percutaneous Approach (ICD-10-PCS; 2020-12-13)
PROC: 02HV33Z Insertion of Infusion Device into Superior Vena Cava, Percutaneous Approach (ICD-10-PCS; 2020-12-13)
PROC: 5A1D90Z Performance of Urinary Filtration, Continuous, Greater than 18 hours Per Day (ICD-10-PCS; 2020-12-13)
PROC: 30233N1 Transfusion of Nonautologous Red Blood Cells into Peripheral Vein, Percutaneous Approach (ICD-10-PCS; 2020-12-15)
DX: A41.9 Sepsis, unspecified organism (principal); J96.01 Acute respiratory failure with hypoxia; R65.21 Severe sepsis with septic shock; J44.0 Chronic obstructive pulmonary disease with (acute) lower respiratory infection; J16.8 Pneumonia due to other specified infectious organisms; J98.2 Interstitial emphysema; I47.2 Ventricular tachycardia; G93.1 Anoxic brain damage, not elsewhere classified; J44.1 Chronic obstructive pulmonary disease with (acute) exacerbation; N17.9 Acute kidney failure, unspecified; E46 Unspecified protein-calorie malnutrition; E87.2 Acidosis; I24.8 Other forms of acute ischemic heart disease; R04.2 Hemoptysis; J93.9 Pneumothorax, unspecified; I48.91 Unspecified atrial fibrillation; Z51.5 Encounter for palliative care; Z66 Do not resuscitate; D64.9 Anemia, unspecified; M05.9 Rheumatoid arthritis with rheumatoid factor, unspecified; F17.200 Nicotine dependence, unspecified, uncomplicated; K21.9 Gastro-esophageal reflux disease without esophagitis; G43.909 Migraine, unspecified, not intractable, without status migrainosus; R42 Dizziness and giddiness; F32.9 Major depressive disorder, single episode, unspecified; R68.0 Hypothermia, not associated with low environmental temperature; Z88.8 Allergy status to other drugs, medicaments and biological substances